=== PATIENT | male | born 1950 | race Hispanic/Latino ===

== ENCOUNTER 2018-03-30 18:51 | Emergency (ER) | payer OTHER ==
--- NOTE | 2018-03-30 22:05 | EDPHYS ---
Physician Documentation [facility] Name: Esvin Díaz Age: 67 yrs Sex: Male : 1950 Arrival Date: 03/30/2018 Time: 18:54 Bed 17 Private MD: Taurus Rojo V ED Physician William Mack HPI: 03/30 22:00 This 67 yrs old Male presents to ER via Ambulatory with complaints of Fall pm1 Injury. 22:00 Details of fall: The patient fell from an upright position, while walking. Onset: The pm1 symptoms/episode began/occurred 3 hour(s) ago. Associated injuries: The patient sustained left knee. Severity of symptoms: in the emergency department the symptoms are actually worse. The patient has not experienced similar symptoms in the past. Patient walking down steps and tripped. Patient landed on hi left knee causing swelling and pain. Patient uses a cane. patient able to walk on his left leg. Historical: - Allergies: 19:15 Isosorbide Mononitrate (unrinary retention); ak1 - Home Meds: 19:15 Advair Diskus 250-50 mcg/dose Inhl dsdv 1 puff 2 times per day [Active]; ak1 - PMHx: 19:15 BPH; COPD; Hypertension; Rheumatoid Arthritis; ak1 - PSHx: 19:15 left knee ACL sx; left ankle sx; prostate; ak1 - Immunization history:: Adult Immunizations unknown. - Social history:: Smoking status: . - Ebola Screening: : No symptoms or risks identified at this time. ROS: 22:00 Constitutional: Negative for fever, chills, and weight loss, Eyes: Negative for injury, pm1 pain, redness, and discharge, ENT: Negative for injury, pain, and discharge, Neck: Negative for injury, pain, and swelling, Cardiovascular: Negative for chest pain, palpitations, and edema, Respiratory: Negative for shortness of breath, cough, wheezing, and pleuritic chest pain, Abdomen/GI: Negative for abdominal pain, nausea, vomiting, diarrhea, and constipation, Back: Negative for injury and pain, : Negative for injury, bleeding, discharge, and swelling. 22:00 Skin: Negative for injury, rash, and discoloration, Neuro: Negative for headache, weakness, numbness, tingling, and seizure. 22:00 MS/extremity: Positive for pain, swelling, of the left knee. Exam: 22:00 Constitutional: This is a well developed, well nourished patient who is awake, alert, pm1 and in no acute distress. Head/Face: Normocephalic, atraumatic. Chest/axilla: Normal chest wall appearance and motion. Nontender with no deformity. No lesions are appreciated. Cardiovascular: Regular rate and rhythm with a normal S1 and S2. No gallops, murmurs, or rubs. Normal PMI, no JVD. No pulse deficits. Respiratory: Lungs have equal breath sounds bilaterally, clear to auscultation and percussion. No rales, rhonchi or wheezes noted. No increased work of breathing, no retractions or nasal flaring. Abdomen/GI: Soft, non-tender, with normal bowel sounds. No distension or tympany. No guarding or rebound. No evidence of tenderness throughout. Back: No spinal tenderness. No costovertebral tenderness. Full range of motion. Skin: Warm, dry with normal turgor. Normal color with no rashes, no lesions, and no evidence of cellulitis. 22:00 Musculoskeletal/extremity: Extremities: grossly normal except: noted in the left knee: swelling, tenderness, ROM: intact in all extremities, Circulation is intact in all extremities. 22:00 Neuro: Orientation: is normal, Motor: moves all fours, Sensation: is normal, no obvious gross deficits. Vital Signs: 19:09 BP 146 / 84; Pulse 101; Resp 18; Temp 98.4; Pulse Ox 96% on R/A; Weight 103.42 kg (R); ak1 Height 5 ft. 8 in. (172.72 cm) (R); Pain 8/10; 19:29 BP 125 / 71; Pulse 90; Resp 16; Pulse Ox 94% on R/A; Pain 0/10; ao 20:31 BP 150 / 70; Pulse 84; Resp 20; Pulse Ox 95% on R/A; ao 21:57 BP 138 / 80; Pulse 62; Resp 16; Pulse Ox 98% on R/A; Pain 0/10; ao 22:34 BP 146 / 75; Pulse 72; Resp 16; Pulse Ox 98% on R/A; ao 19:09 Body Mass Index 34.67 (103.42 kg, 172.72 cm) ak1 MDM: 19:14 Patient medically screened. [facility] 22:03 Data reviewed: vital signs. Data interpreted: Pulse oximetry: on room air is 98 %. pm1 Interpretation: normal. Counseling: I had a detailed discussion with the patient and/or guardian regarding: the historical points, exam findings, and any diagnostic results supporting the discharge/admit diagnosis, radiology results, the need for outpatient follow up, to return to the emergency department if symptoms worsen or persist or if there are any questions or concerns that arise at home. 03/30 19:29 Order name: Knee Left 3 View XRAY pm1 03/30 22:15 Order name: Reuben wrap-joint; Complete Time: 22:33 pm1 Administered Medications: No medications were administered Disposition: 03/31 09:36 Co-signature as Attending Physician, William Mack MD I agree with the assessment and [facility] plan of care. Disposition: 03/30/18 22:04 Discharged to Home. Impression: Pain in left knee. - Condition is Stable. - Discharge Instructions: Knee Immobilizer, Knee Pain. - Prescriptions for Tylenol- Codeine #3 300-30 mg Oral Tablet - take 1 tablet by ORAL route every 6 hours As needed; 15 tablet. - Medication Reconciliation Form, Thank You Letter form. - Follow up: Emergency Department; When: As needed; Reason: Worsening of condition. Follow up: Carlos Myles MD; When: 2 - 3 days; Reason: Recheck today's complaints, Continuance of care, Re-evaluation by your physician. - Problem is new. - Symptoms have improved. Signatures: Dispatcher [employer] EDVT William Mack MD MD cha Krenek, Amber RN RN ak1 Soham Hood RN RN Oziel Orosco, MUSICIAN INSTRUMENTAL MUSICIAN INSTRUMENTAL pm1 Corrections: (The following items were deleted from the chart) 03/30 22:16 22:02 Knee Immobilizer ordered. pm1 pm1 22:35 22:04 03/30/2018 22:04 Discharged to Home. Impression: Pain in left knee. Condition is ao Stable. Forms are Medication Reconciliation Form, Thank You Letter, Antibiotic Education, Prescription Opioid Use. Follow up: Emergency Department; When: As needed; Reason: Worsening of condition. Follow up: Carlos Shar; When: 2 - 3 days; Reason: Recheck today's complaints, Continuance of care, Re-evaluation by your physician. Problem is new. Symptoms have improved. pm1
--- NOTE | 2018-03-30 22:05 | ER ---
Nurse's Notes [facility] Name: Esvin Díaz Age: 67 yrs Sex: Male : 1950 Arrival Date: 03/30/2018 Time: 18:54 Bed 17 Private MD: Taurus Rojo V Diagnosis: Pain in left knee Presentation: 03/30 19:10 Presenting complaint: Patient states: left knee pain after falling on wooden porch. pt ak1 using cane to ambulate. pt has used ice over the past 3 hours cine the fall at 1600. swelling noted to left knee. Transition of care: patient was not received from another setting of care. Onset of symptoms was March 30, 2018. Risk Assessment: Do you want to hurt yourself or someone else? Patient reports no desire to harm self or others. Initial Sepsis Screen: Does the patient meet any 2 criteria? No. Patient's initial sepsis screen is negative. Does the patient have a suspected source of infection? No. Patient's initial sepsis screen is negative. Care prior to arrival: None. 19:10 Method Of Arrival: Ambulatory ak1 19:10 Acuity: NATACHA 4 ak1 Triage Assessment: 19:15 General: Appears uncomfortable, Behavior is calm, cooperative. Pain: Complains of pain ak1 in left leg. EENT: No signs and/or symptoms were reported regarding the EENT system. Neuro: No deficits noted. Cardiovascular: No deficits noted. Respiratory: No deficits noted. GI: No signs and/or symptoms were reported involving the gastrointestinal system. : No signs and/or symptoms were reported regarding the genitourinary system. Derm: No signs and/or symptoms reported regarding the dermatologic system. Musculoskeletal: Swelling present in left knee Reports pain in left knee. Historical: - Allergies: 19:15 Isosorbide Mononitrate (unrinary retention); ak1 - Home Meds: 19:15 Advair Diskus 250-50 mcg/dose Inhl dsdv 1 puff 2 times per day [Active]; ak1 - PMHx: 19:15 BPH; COPD; Hypertension; Rheumatoid Arthritis; ak1 - PSHx: 19:15 left knee ACL sx; left ankle sx; prostate; ak1 - Immunization history:: Adult Immunizations unknown. - Social history:: Smoking status: . - Ebola Screening: : No symptoms or risks identified at this time. Screenin:17 Abuse screen: Denies threats or abuse. Denies injuries from another. Nutritional ak1 screening: No deficits noted. Tuberculosis screening: No symptoms or risk factors identified. Fall Risk None identified. Assessment: 19:26 General: Appears in no apparent distress. comfortable, Behavior is calm, cooperative, ao appropriate for age. Pain: Complains of pain in left knee and left leg Pain does not radiate. Pain currently is 8 out of 10 on a pain scale. Neuro: Level of Consciousness is awake, alert, obeys commands, Oriented to person, place, time, situation, Appropriate for age Moves all extremities. Speech is normal, Facial symmetry appears normal, Pupils are PERRLA. Cardiovascular: Capillary refill < 3 seconds Patient's skin is warm and dry. Respiratory: Airway is patent Respiratory effort is even, unlabored, Respiratory pattern is regular, symmetrical, Breath sounds are clear bilaterally. GI: Abdomen is non-distended. : No signs and/or symptoms were reported regarding the genitourinary system. EENT: No signs and/or symptoms were reported regarding the EENT system. Derm: No signs and/or symptoms reported regarding the dermatologic system. Musculoskeletal: Reports weakness in left leg pain in left leg Pain is 8 out of 10 on a pain scale. Injury Description: Fall into his left knee. 20:31 Reassessment: Patient appears in no apparent distress at this time. No changes from ao previously documented assessment. Patient and/or family updated on plan of care and expected duration. Pain level reassessed. Patient is alert, oriented x 3, equal unlabored respirations, skin warm/dry/pink. 21:57 Reassessment: Patient appears in no apparent distress at this time. Patient and/or ao family updated on plan of care and expected duration. Pain level reassessed. Patient is alert, oriented x 3, equal unlabored respirations, skin warm/dry/pink. 22:34 Reassessment: Dc instructions given to patient. patient understand the POC and to ao follow up with PCP and orthopedist. Vital Signs: 19:09 BP 146 / 84; Pulse 101; Resp 18; Temp 98.4; Pulse Ox 96% on R/A; Weight 103.42 kg (R); ak1 Height 5 ft. 8 in. (172.72 cm) (R); Pain 8/10; 19:29 BP 125 / 71; Pulse 90; Resp 16; Pulse Ox 94% on R/A; Pain 0/10; ao 20:31 BP 150 / 70; Pulse 84; Resp 20; Pulse Ox 95% on R/A; ao 21:57 BP 138 / 80; Pulse 62; Resp 16; Pulse Ox 98% on R/A; Pain 0/10; ao 22:34 BP 146 / 75; Pulse 72; Resp 16; Pulse Ox 98% on R/A; ao 19:09 Body Mass Index 34.67 (103.42 kg, 172.72 cm) ak1 ED Course: 18:54 Patient arrived in ED. es 18:54 Taurus Rojo MD is Private Physician. es 19:10 [facility] pm1 19:10 William Mack MD is Attending Physician. pm1 19:13 Triage completed. ak1 19:14 Soham Hood, RN is Primary Nurse. ao 19:17 Patient has correct armband on for positive identification. Bed in low position. Call ak1 light in reach. Side rails up X 1. Pulse ox on. NIBP on. 19:17 Arm band placed on Patient placed in an exam room, on a stretcher, Patient notified of ak1 wait time. 20:14 X-ray completed. Portable x-ray completed in exam room. Patient tolerated procedure ag1 well. 20:24 Knee Left 3 View XRAY In Process Unspecified. EDMS 22:03 Carlos Myles MD is Referral Physician. pm1 22:33 No provider procedures requiring assistance completed. Patient did not have IV access ao during this emergency room visit. Administered Medications: No medications were administered Outcome: 22:04 Discharge ordered by . pm1 22:33 Discharged to home via wheelchair. ao 22:33 Condition: stable 22:33 Discharge instructions given to patient, Instructed on discharge instructions, follow up and referral plans. Demonstrated understanding of instructions, follow-up care, medications, Prescriptions given X 1. 22:35 Patient left the ED. ao Signatures: Dispatcher [employer] EDMS Radha Morris Mackenzie Herrera RN RN ak1 Alissa Frank ag1 Soham Hood RN RN ao Marinas, Oziel, PLYWOOD PATCHER PLYWOOD PATCHER pm1
--- NOTE | 2018-03-30 22:36 | RAD REPORT ---
EXAM DESCRIPTION: RAD - Knee Left 3 View - 03/30/2018 8:32 pm CLINICAL HISTORY: Left knee pain status post injury FINDINGS: The bones are osteoporotic. Postsurgical changes are visualized. Calcification is present along the medial joint line. No fracture or dislocation is visualized. However, there does appear to be a moderate joint effusion. In the setting of trauma this could indicate a hemarthrosis. If the patient has clinical symptoms to suggest an occult fracture, ligamentous or meniscal injury th en MRI would be recommended
[2018-03-30 22:47] VITALS: TEMP 98.4
[2018-03-30 22:50] VITALS: O2SAT 98
[2018-03-30 22:52] VITALS: BP 146/75
== END 2018-03-30 22:35 | disposition home or self-care (01) ==
LOC: ER 18:51
DX: M25.562 Pain in left knee (principal); I10 Essential (primary) hypertension; J44.9 Chronic obstructive pulmonary disease, unspecified
CPT/HCPCS: 99283

== ENCOUNTER 2018-10-09 06:21 | Emergency (ER) | payer OTHER ==
--- NOTE | 2018-10-09 07:16 | EDPHYS ---
Physician Documentation [facility] Name: Esvin Díaz Age: 68 yrs Sex: Male : 1950 Arrival Date: 10/09/2018 Time: 06:22 Bed 8 Private MD: Taurus Rojo V ED Physician Esvin Casillas HPI: 10/09 07:04 This 68 yrs old Male presents to ER via Ambulatory with complaints of Blood in snw urine. 07:04 The patient presents with hematuria. Onset: The symptoms/episode began/occurred snw suddenly, last night. Modifying factors: The symptoms are alleviated by nothing. Associated signs and symptoms: The patient has no apparent associated signs or symptoms. Severity of symptoms: At their worst the symptoms were moderate. It is unknown whether or not the patient has had similar symptoms in the past. sees Dr. Moreno q 6mo, s/p "roto router" one year ago. Also sees Dr. Li for abnormal WBC (unknown cause). Historical: - Allergies: 06:34 Isosorbide Mononitrate (unrinary retention); ak1 - Home Meds: 06:34 Advair Diskus 250-50 mcg/dose Inhl dsdv 1 puff 2 times per day [Active]; losartan 50 mg ak1 oral tab 1 tab once daily [Active]; - PMHx: 06:34 Rheumatoid Arthritis; Hypertension; COPD; BPH; ak1 - PSHx: 06:34 left knee ACL sx; left ankle sx; prostate; ak1 - Immunization history:: Adult Immunizations unknown. - Social history:: Smoking status: Patient/guardian denies using tobacco. - Ebola Screening: : No symptoms or risks identified at this time. ROS: 07:03 Constitutional: Negative for fever, chills, and weight loss, Eyes: Negative for injury, snw pain, redness, and discharge, ENT: Negative for injury, pain, and discharge, Neck: Negative for injury, pain, and swelling, Cardiovascular: Negative for chest pain, palpitations, and edema, Respiratory: Negative for shortness of breath, cough, wheezing, and pleuritic chest pain, Abdomen/GI: Negative for abdominal pain, nausea, vomiting, diarrhea, and constipation, Back: Negative for injury and pain, MS/Extremity: Negative for injury and deformity, Skin: Negative for injury, rash, and discoloration, Neuro: Negative for headache, weakness, numbness, tingling, and seizure. 07:03 : Positive for hematuria. Exam: 07:03 Constitutional: This is a well developed, well nourished patient who is awake, alert, snw and in no acute distress. Head/Face: Normocephalic, atraumatic. Eyes: Pupils equal round and reactive to light, extra-ocular motions intact. Lids and lashes normal. Conjunctiva and sclera are non-icteric and not injected. Cornea within normal limits. Periorbital areas with no swelling, redness, or edema. ENT: Nares patent. No nasal discharge, no septal abnormalities noted. Tympanic membranes are normal and external auditory canals are clear. Oropharynx with no redness, swelling, or masses, exudates, or evidence of obstruction, uvula midline. Mucous membranes moist. Neck: Trachea midline, no thyromegaly or masses palpated, and no cervical lymphadenopathy. Supple, full range of motion without nuchal rigidity, or vertebral point tenderness. No Meningismus. Chest/axilla: Normal chest wall appearance and motion. Nontender with no deformity. No lesions are appreciated. Cardiovascular: Regular rate and rhythm with a normal S1 and S2. No gallops, murmurs, or rubs. Normal PMI, no JVD. No pulse deficits. Respiratory: Lungs have equal breath sounds bilaterally, clear to auscultation and percussion. No rales, rhonchi or wheezes noted. No increased work of breathing, no retractions or nasal flaring. Abdomen/GI: Soft, non-tender, with normal bowel sounds. No distension or tympany. No guarding or rebound. No evidence of tenderness throughout. Back: No spinal tenderness. No costovertebral tenderness. Full range of motion. Skin: Warm, dry with normal turgor. Normal color with no rashes, no lesions, and no evidence of cellulitis. MS/ Extremity: Pulses equal, no cyanosis. Neurovascular intact. Full, normal range of motion. Neuro: Awake and alert, GCS 15, oriented to person, place, time, and situation. Cranial nerves II-XII grossly intact. Motor strength 5/5 in all extremities. Sensory grossly intact. Cerebellar exam normal. Normal gait. Vital Signs: 06:29 BP 137 / 73; Pulse 73; Resp 20; Temp 97.0; Pulse Ox 98% on R/A; Weight 101.15 kg (R); ak1 Height 5 ft. 9 in. (175.26 cm) (R); Pain 0/10; 07:30 BP 113 / 75; Pulse 68; Resp 16 S; Pulse Ox 96% on R/A; jl7 06:29 Body Mass Index 32.93 (101.15 kg, 175.26 cm) ak1 MDM: 06:34 Patient medically screened. snw 07:17 Data reviewed: vital signs, nurses notes. Data interpreted: Pulse oximetry: on room air snw is 98 %. Interpretation: normal. Counseling: I had a detailed discussion with the patient and/or guardian regarding: the historical points, exam findings, and any diagnostic results supporting the discharge/admit diagnosis, the presence of at least one elevated blood pressure reading (>120/80) during this emergency department visit, lab results, the need for outpatient follow up, to return to the emergency department if symptoms worsen or persist or if there are any questions or concerns that arise at home. Special discussion: I have referred the patient to see his PCP for further evaluation of high blood pressure. Based on the history and exam findings, there is no indication for further emergent testing or inpatient evaluation. I discussed with the patient/guardian the need to see the primary care provider for further evaluation of the symptoms. I discussed with the patient/guardian the need to see the urologist for further evaluation of the symptoms. 10/09 06:24 Order name: Urine Culture snw 10/09 06:24 Order name: Urine Microscopic Only; Complete Time: 07:40 snw 10/09 06:24 Order name: Urine Dipstick-Ancillary (obtain specimen); Complete Time: 07:04 snw 10/09 07:13 Order name: Urine Dipstick--Ancillary (enter results) bd Administered Medications: 07:30 Drug: Rocephin (cefTRIAXone) 1 grams Route: IM; Site: right gluteus; jl7 07:34 Drug: Macrobid 100 mg Route: PO; jl7 Disposition: 10/09/18 07:15 Discharged to Home. Impression: Urinary tract infection, site not specified. - Condition is Stable. - Discharge Instructions: Urinary Tract Infection, Adult, Hypertension, [id number]-Ipol, Rehydration, Adult. - Prescriptions for Macrobid 100 mg Oral Capsule - take 1 capsule by ORAL route every 12 hours for 10 days; 20 capsule. cefpodoxime 200 mg Oral Tablet - take 1 tablet by ORAL route every 12 hours with food; 20 tablet. - Medication Reconciliation Form, Thank You Letter, Antibiotic Education, Prescription Opioid Use form. - Follow up: Taurus Rojo MD; When: 1 - 2 days; Reason: Recheck today's complaints, Continuance of care, Re-evaluation by your physician. Follow up: Emergency Department; When: As needed; Reason: Worsening of condition. Addendum: 10/12/2018 10:38 Co-signature as Attending Physician, Esvin Casillas MD. g s Signatures: Dispatcher [employer] EDMS Tania Escalera, SAW EDGE FUSER CIRCULAR-C SAW EDGE FUSER CIRCULAR-Csnw Polina Lizarraga, RN RN iw Mackenzie Herrera RN RN ak1 Aditya Ribeiro RN RN jl7 Esvin Casillas MD MD Corrections: (The following items were deleted from the chart) 10/09 07:49 07:15 10/09/2018 07:15 Discharged to Home. Impression: Urinary tract infection, site iw not specified. Condition is Stable. Forms are Medication Reconciliation Form, Thank You Letter, Antibiotic Education, Prescription Opioid Use. Follow up: Taurus Rojo; When: 1 - 2 days; Reason: Recheck today's complaints, Continuance of care, Re-evaluation by your physician. Follow up: Emergency Department; When: As needed; Reason: Worsening of condition. snw
--- NOTE | 2018-10-09 07:16 | ER ---
Nurse's Notes [facility] Name: Esvin Díaz Age: 68 yrs Sex: Male : 1950 Arrival Date: 10/09/2018 Time: 06:22 Bed 8 Private MD: Taurus Rojo V Diagnosis: Urinary tract infection, site not specified Presentation: 10/09 06:30 Presenting complaint: Patient states: blood in urine started last night. Transition of ak1 care: patient was not received from another setting of care. Onset of symptoms was October 08, 2018. Risk Assessment: Do you want to hurt yourself or someone else? Patient reports no desire to harm self or others. Initial Sepsis Screen: Does the patient meet any 2 criteria? No. Patient's initial sepsis screen is negative. Does the patient have a suspected source of infection? No. Patient's initial sepsis screen is negative. Care prior to arrival: None. 06:30 Method Of Arrival: Ambulatory ak1 06:30 Acuity: NATACHA 3 ak1 Triage Assessment: 06:34 General: Appears in no apparent distress. ak1 Historical: - Allergies: 06:34 Isosorbide Mononitrate (unrinary retention); ak1 - Home Meds: 06:34 Advair Diskus 250-50 mcg/dose Inhl dsdv 1 puff 2 times per day [Active]; losartan 50 mg ak1 oral tab 1 tab once daily [Active]; - PMHx: 06:34 Rheumatoid Arthritis; Hypertension; COPD; BPH; ak1 - PSHx: 06:34 left knee ACL sx; left ankle sx; prostate; ak1 - Immunization history:: Adult Immunizations unknown. - Social history:: Smoking status: Patient/guardian denies using tobacco. - Ebola Screening: : No symptoms or risks identified at this time. Screenin:30 Abuse screen: Denies threats or abuse. Denies injuries from another. Nutritional aa1 screening: No deficits noted. Tuberculosis screening: No symptoms or risk factors identified. Fall Risk None identified. Assessment: 06:30 General: Appears in no apparent distress. comfortable, Behavior is calm, cooperative, aa1 appropriate for age. Pain: Denies pain. Neuro: Level of Consciousness is awake, alert, obeys commands, Oriented to person, place, time, situation, Moves all extremities. Full function Gait is steady, Speech is normal. Respiratory: Airway is patent Respiratory effort is even, unlabored, Respiratory pattern is regular, symmetrical. GI: No signs and/or symptoms were reported involving the gastrointestinal system. : Reports blood in urine Denies burning with urination, pain urinary frequency, urgency. EENT: No signs and/or symptoms were reported regarding the EENT system. Derm: Skin is intact, is healthy with good turgor, Skin is pink, warm \T\ dry. Musculoskeletal: Circulation, motion, and sensation intact. Capillary refill < 3 seconds. 07:30 Reassessment: Patient appears in no apparent distress at this time. Patient and/or jl7 family updated on plan of care and expected duration. Pain level reassessed. Patient is alert, oriented x 3, equal unlabored respirations, skin warm/dry/pink. Pt will be discharged after shot time. Vital Signs: 06:29 BP 137 / 73; Pulse 73; Resp 20; Temp 97.0; Pulse Ox 98% on R/A; Weight 101.15 kg (R); ak1 Height 5 ft. 9 in. (175.26 cm) (R); Pain 0/10; 07:30 BP 113 / 75; Pulse 68; Resp 16 S; Pulse Ox 96% on R/A; jl7 06:29 Body Mass Index 32.93 (101.15 kg, 175.26 cm) ak1 ED Course: 06:22 Patient arrived in ED. es 06:23 Taurus Rojo MD is Private Physician. es 06:30 Patient has correct armband on for positive identification. Bed in low position. Call aa1 light in reach. Pulse ox on. NIBP on. Door closed. Warm blanket given. 06:31 Triage completed. ak1 06:34 Tania Escalera FNP-C is PHCP. snw 06:34 Esvin Casillas MD is Attending Physician. snw 06:34 Arm band placed on Patient placed in an exam room, on a stretcher, on pulse oximetry, ak1 Patient notified of wait time. 07:11 Urine collected: clean catch specimen, blood tinged. mh5 07:12 Urine Culture Sent. mh5 07:12 Urine Microscopic Only Sent. mh5 07:15 Taurus Rojo MD is Referral Physician. snw Administered Medications: 07:30 Drug: Rocephin (cefTRIAXone) 1 grams Route: IM; Site: right gluteus; jl7 07:34 Drug: Macrobid 100 mg Route: PO; jl7 Outcome: 07:15 Discharge ordered by MD. santiago 07:49 Patient left the ED. iw Signatures: Federica Dawn RN RN aa1 Tania Escalera, POLICE COMMANDING OFFICER-C POLICE COMMANDING OFFICER-Csnw Radha Morris Irene, RN RN Mackenzie Herrera RN RN ak1 Radha Altamirano [facility] Aditya Ribeiro RN RN jl7
[2018-10-09 07:31] LABS: Urine Bacteria 20-50 /HPF (NONE SEEN); Urine Culture Reflex Order NOT NEEDED; Urine RBC TNTC /HPF (NONE SEEN)
[2018-10-09] MEDS ORDERED: NITROFURAN MACRO 100 MG CAP PO ONE (07:32)
[2018-10-09] MEDS ORDERED: CEFTRIAXONE 1000 MG/VIAL ONE (07:32)
[2018-10-09 07:54] VITALS: TEMP 97
[2018-10-09 07:56] VITALS: BP 113/75; O2SAT 96
[2018-10-09 09:32] LABS: Urine Blood 3+ (NEG); Urine Glucose TRACE (NEG); Urine Protein 3+ (NEG); Urine pH 8.5 (5.0-7.0)
== END 2018-10-09 07:49 | disposition home or self-care (01) ==
LOC: ER 06:21
DX: N39.0 Urinary tract infection, site not specified (principal); I10 Essential (primary) hypertension; J44.9 Chronic obstructive pulmonary disease, unspecified; M06.9 Rheumatoid arthritis, unspecified; N40.0 Benign prostatic hyperplasia without lower urinary tract symptoms; Z79.51 Long term (current) use of inhaled steroids; Z79.899 Other long term (current) drug therapy
CPT/HCPCS: 81003; 81015; 87086; 87088; 96372; 99283

== ENCOUNTER 2019-07-10 14:25 | Emergency (ER) | payer OTHER ==
--- OUTSIDE RECORDS SUMMARY | 2019-07-10 14:28 | XMS REPORT | Summary of Care ---
:1950 Author Organization [facility] Address [id number] [place] [id number] Encounter HQ Chidi_eugene(FIN) [id number] Date(s): 11/26/18 - 11/26/[address] [phone] Encounter Diagnosis Monoclonal gammopathy (Final) - 12/02/18 Anemia, unspecified (Final) - Discharge Disposition: Home or Self Care Attending Physician: Colleen Li MD Referring Physician: Colleen Li MD Vital Signs Most recent to oldest [Reference Range]: 1 Height 175.26 cm (11/26/18 10:11 AM) Weight 103.182 kg (11/26/18 10:11 AM) Body Mass Index 33.59 m2 (11/26/18 10:11 AM) Problem List No data available for this section Allergies, Adverse Reactions, Alerts No Known Medication Allergies Medications Advair Diskus 250 mcg-50 mcg inhalation powder 1 puff, INHALATION, Daily, 0 Refill(s) Start Date: 11/26/18 Status: OrderedCitracal + D 250 mg-500 intl units oral tablet, chewable 2 tab, CHEW, Daily, 0 Refill(s) Start Date: 11/26/18 Status: Orderedlosartan 50 mg oral tablet 50 mg=1 tab, PO, Daily, # 90 tab, 1 Refill(s) Start Date: 11/26/18 Status: Ordered Results Most recent to oldest [Reference Range]: 1 Neutrophils # [1.5-8.1 K/CMM] 6.0 K/CMM (11/26/18 10:12 AM) Lymphocytes # [1.0-5.5 K/CMM] 2.1 K/CMM (11/26/18 10:12 AM) Monocytes # [0.0-0.8 K/CMM] 1.1 K/CMM *HI* (11/26/18 10:12 AM) Eosinophils # [0.0-0.5 K/CMM] 0.2 K/CMM (11/26/18 10:12 AM) Basophils # [0.0-0.2 K/CMM] 0.0 K/CMM (11/26/18 10:12 AM) Test Name FISH-MM ENRICHED *Unknown* (11/27/18 10:51 AM) Plt Morph Normal (11/26/18 10:12 AM) Basophils [0.0-1.0 %] 0.0 % (11/26/18 10:12 AM) Eosinophils [0.0-4.0 %] 2.0 % (11/26/18 10:12 AM) Hct [42.0-54.0 %] 39.9 % *LOW* (11/26/18 10:12 AM) Hgb [14.0-18.0 g/dL] 13.9 g/dL *LOW* (11/26/18 10:12 AM) Lymphocytes [20.0-40.0 %] 22.0 % (11/26/18 10:12 AM) MCH [27.0-31.0 pg] 30.2 pg (11/26/18 10:12 AM) MCHC [32.0-36.0 g/dL] 34.8 g/dL (11/26/18 10:12 AM) MCV [80.0-94.0 fL] 86.9 fL (11/26/18 10:12 AM) [facility] Reference lab results scanned in [employer]. Results displayed in Results- Lab-REFERENCE LAB-Outside Lab Documents (Imaged) under date/time results were scanned. Report sent for scanning on 12/08/2018 10:57_. GENOPTIX REPORT *NA* (11/27/18 10:51 AM) Monocytes [2.0-12.0 %] 12.0 % (11/26/18 10:12 AM) MPV [7.4-10.4 fL] 7.3 fL *LOW* (11/26/18 10:12 AM) Platelet [133-450 K/CMM] 342 K/CMM (11/26/18 10:12 AM) Segs [45.0-75.0 %] 64.0 % (11/26/18 10:12 AM) RBC [4.70-6.10 M/CMM] 4.59 M/CMM *LOW* (11/26/18 10:12 AM) RBC Morph Normal (11/26/18 10:12 AM) RDW [11.5-14.5 %] 13.9 % (11/26/18 10:12 AM) Retic Auto [0.5-1.5 %] 1.1 % (11/26/18 10:12 AM) Tot Cell Ct 100 *NA* (11/26/18 10:12 AM) WBC [3.7-10.4 K/CMM] 9.4 K/CMM (11/26/18 10:12 AM) Immunizations No data available for this section Procedures Procedure Date Related Diagnosis Body Site Status Ankle reconstruction Completed Knee replacement Completed ORIF - Open reduction and internal Completed fixation of fracture1 Prostate manipulation Completed 1ankle ORIF Social History Social History Type Response Smoking Status Never smoker; Ready to change: No; Concerns about tobacco use in household: No; Exposure to Tobacco Smoke None; Cigarette Smoking Last 365 Days No; Reg Smoking Cessation Counseling No entered on: 11/26/18 Assessment and Plan No data available for this section
--- OUTSIDE RECORDS SUMMARY | 2019-07-10 14:28 | XMS REPORT | CCD ---
:1950 [address] [facility] Care Team Providers Name Role Phone Caesar Shelton Consulting Provider Unavailable Results Radiology Reports Exam Date Time Procedure Performing Provider Status 09/21/2015 15:53:55 MRI Hand w/o Contrast Left Safia Ware; Auth ( Verified) [id number] Notes:(MRI Hand w/o Contrast Left [id number]) Reason For Exam: PAIN IN LEFT HANDFINAL REPORTEXAM DESCRIPTION: Noncontrast MRI of the left hand, 09/21/2015 CLINICAL HISTORY: 65 y/o M M79.642 - Left hand pain COMPARISON: None. TECHNIQUE: Multiplanar imaging of the left hand was performed on the [facility] 1.2 Leslie magnet using a combination of T1, proton density and STIR techniques. A skin marker was placed on the volar aspect of the 3rdfinger near the proximal interphalangeal joint where the patient indicated pain. FINDINGS: Small subchondral cysts are seen in the head of the 3rd metacarpal as well as in the capitate and pisiform. There is no bone marrow edema to suggest an acute osseous abnormality. There are no joint effusions. The flexor and extensor tendons appear intact. No soft tissue mass or fluid collection is seen. IMPRESSION: Osteoarthritic changes are noted in the head of the 3rd metacarpal with small subchondral cysts. There are also small subchondral cysts in the capitate and pisiform. No abnormality is seen near the proximal interphalangeal joint of the 3rd finger where the patient indicated pain. No acute osseous abnormality is seen. Electronically signed by: Pascual Rodriguez 09/22/2015 13:22 Final Dictated by: Pascual Islas MD Dictated DT/TM: 09/22/2015 1:22 pm Signed by: Pascual Islas MD Signed (Electronic Signature): 09/22/2015 1:22 pm Transcribed by: JHONNY Procedures Procedures Date Related Diagnosis Magnetic resonance (eg, proton) imaging, upper 09/21/2015 00:00:00 extremity, other than joint; without contrast material(s)
--- OUTSIDE RECORDS SUMMARY | 2019-07-10 14:28 | XMS REPORT | Continuity of Care Document ---
:1950 Author Organization [facility] Care Team Providers Name Role Phone [facility] Unavailable Unavailable Problems Problem Status Onset Classification Date Comments Source Date Reported Monoclonal 12/03/19 06/16/2019 [facility] gammopathy 19 MONOCLOMAL Active 11/25/19 [facility] GAMMOPATHY 19 Chris Pneumonia Active 09/16/20 Finding 11/25/[address] [facility] 17 - [place] Lower extremity Active 12/09/19 Finding 11/25/[address] [facility] edema 17 - [place] Troponin I Active 12/09/19 Finding 11/25/[address] 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 myocardial 17 - [place] infarction Urinary Active 12/09/19 Finding 11/25/[address] [facility] retention 17 - [place] Dyspnea Active 12/13/19 Finding 11/25/[address] [facility] 15 - [place] Cardiac enzymes Active 12/13/19 Finding 11/25/[address] [facility] elevated 15 - [place] Hypoxia Active 12/13/19 Finding 11/25/[address] [facility] 15 - [place] Anemia, 06/16/2019 [facility] unspecified Edema Active Finding 11/25/[address] [facility] [place] Orchitis Active Finding 11/25/[address] [facility] [place] Bronchitis Active Finding 11/25/[address] [facility] [place] Dehydration Active Finding 11/25/[address] [facility] [place] MONOCLONAL Active [facility] GAMMOPATHY [place] Medications Medication Details Route Status Patient Ordering Order Source Instructions Provider Date Advair Diskus 1 puff, Active [place] 250 mcg-50 mcg INHALATION 019 inhalation , Daily, 0 powder Refill(s) Citracal + D 250 2 tab, Active [place] mg-500 intl CHEW, 019 units oral Daily, 0 tablet, chewable Refill(s) losartan 50 mg 50 mg=1 Active [facility] oral tablet tab, PO, 019 Daily, # 90 tab, 1 Refill(s) Levofloxacin DAILY Active Alia [facility]17 [facility] [place] Valsartan DAILY Active [facility] [place] Tamsulosin AT BEDTIME Active Josh [facility]17 [facility] [place] Finasteride DAILY [facility]17 [facility] [place] Doxycycline TWICE Active Josh [facility] Monohydrate DAILY 014 [facility] [place] Sulfamethoxazole TWICE Active Josh [facility] /Trimethoprim DAILY 014 [facility] [place] Ciprofloxacin Q12H Active [facility] Hcl 014 [facility] [place] Hydrocodone Q6H PRN Active [facility] 5/Apap 325 For Pain 014 [facility] [place] Fluticasone/[place] TWICE Active [facility] eterol DAILY 014 [facility] [place] Allergies, Adverse Reactions, Alerts Substance Category Reaction Severity Reaction Status Date Comments Source type Reported isosorbide URINARY Propensity Active [facility] RETENTION to adverse 8 [facility] - reactions [place] Isosorbide Unknown Allergy to Active [facility] Mononitrate Substance 8 [facility] [place] No Known Assertion Drug Medication allergy [place] Allergies Immunizations Immunization Date Given Site Status Last Comments Source Updated Influenza Adult 07/09/[address] [facility] Vaccine - [place] Results Order Name Results Value Reference Date Interpretation Comments Source Range REFERENCE Test Name FISH-MM 11/27 [facility] LAB [facility] LAB RESULTS lab scanned in [facility]. Results displayed in Results-Lab -REFERENCE LAB-Outside Lab Documents (Imaged) under date/time results were scanned. Report sent for scanning on 12/08/2018 10:57_. [facility] REPORT HEMATOLOGY Hgb 13.9 14.0 - 11/26 [facility] 18.0 HEMATOLOGY RBC 4.59 4.70 - 11/26 [facility] 6.10 HEMATOLOGY WBC 9.4 3.7 - 10.4 [facility] MPV 7.3 7.4 - 10.4 11/26 [facility] Platelet 342 133 - 450 11/26 [facility] MCH 30.2 27.0 - 11/26 [facility] 31.0 HEMATOLOGY MCV 86.9 80.0 - 11/26 [facility] 94.0 HEMATOLOGY RDW 13.9 11.5 - 11/26 [facility] 14.5 HEMATOLOGY MCHC 34.8 32.0 - 11/26 [facility] 36.0 HEMATOLOGY Hct 39.9 42.0 - 11/26 [facility] 54.0 HEMATOLOGY Retic Auto 1.1 0.5 - 1.5 11/26 [facility] Neutrophils # 6.0 1.5 - 8.1 11/26 [facility] Monocytes # 1.1 0.0 - 0.8 11/26 [facility] Basophils 0.0 0.0 - 1.0 11/26 [facility] Eosinophils 2.0 0.0 - 4.0 11/26 [facility] Tot Cell Ct 100 11/26 [facility] Eosinophils # 0.2 0.0 - 0.5 11/26 [facility] HEMATOLOGY Lymphocytes # 2.1 1.0 - 5.5 11/26 [facility] Basophils # 0.0 0.0 - 0.2 11/26 [facility] Lymphocytes 22.0 20.0 - 11/26 [facility] 40.0 2019 HEMATOLOGY Segs 64.0 45.0 - 11/26 [facility] 75.0 HEMATOLOGY Monocytes 12.0 2.0 - 12.0 11/26 [facility] Plt Morph Normal 11/26 [facility] (11/26/18 10:12 AM) HEMATOLOGY RBC Morph Normal 11/26 [facility] (11/26/18 10:12 AM) Microbiolog Pseudomonas Pseudomonas 11/[address] [facility] [facility] [facility] Studies Aeruginosa Aeruginosa [facility] [place] Laboratory Urine WBC >50 11/[address] [facility] Studies /2018 [facility] [place] Laboratory Urine <5 11/[address] Studies Squamous [facility] Epithelial [place] Cells Laboratory Urine RBC Urine RBC 11/[address] [facility] Studies /2017 [facility] [place] Laboratory Urine Mucus Urine Mucus 11/[address] [facility] Studies /2017 [facility] [place] Laboratory Urine Culture Urine 11/20 [facility]. Studies Reflexed Culture /2017 [facility] Reflexed [place] Laboratory Urine <20 11/20 [facility]. Studies Bacteria /2017 [facility] [place] Laboratory Urine pH 6.5 11/[address] [facility] Studies /2017 [facility] [place] Laboratory Urine 1.0 11/20 [facility]. Studies Urobilinogen /2017 [facility] [place] Laboratory Urine Total Urine Total 11/20 [facility]. Studies Protein Protein /2017 [facility] [place] Laboratory Urine 1.020 11/20 [facility]. Studies Specific /2017 [facility] [place] Laboratory Urine Nitrite Urine 11/20 [facility]. Studies Nitrite /2017 [facility] [place] Laboratory Urine Urine 11/20 [facility]. Studies Leukocyte Leukocyte /2017 [facility] Esterase Esterase [place] Laboratory Urine Ketones Urine 11/20 [facility]. Studies Ketones /2017 [facility] [place] Laboratory Urine Glucose Urine 11/20 [facility]. Studies Glucose /2017 [facility] [place] Laboratory Urine Color Urine Color 11/20 [facility] Studies /2017 [facility] [place] Laboratory Urine Blood Urine Blood 11/20 [facility]. Studies /2017 [facility] [place] Laboratory Urine Urine 11/20 [facility] Studies Bilirubin Bilirubin /2017 [facility] [place] Laboratory Urine Urine 11/20 [facility]. Studies Appearance Appearance /2017 [facility] [place] Laboratory White Blood 7.7 4.3 - 10.9 11/20 [facility]. Studies Count /2017 [facility] [place] Laboratory Red Cell 13.9 12.1 - 11/20 [facility]. Studies Distribution 15.2 /2017 [facility] Width [place] Laboratory Red Blood 4.73 4.33 - 11/20 [facility]. Studies Count 5.43 /2017 [facility] [place] Laboratory Platelet 329 152 - 406 11/20 [facility] Studies Count /2017 [facility] [place] Laboratory Neutrophils % 69.0 41.7 - 11/[address] [facility] Studies 73.7 /2017 [facility] [place] Laboratory Monocytes % 8.3 3.3 - 12.3 11/[address] Studies /2018 [facility] [place] Laboratory Mean Platelet 7.7 7.6 - 11.3 11/[address] [facility] Studies Volume /2017 [facility] [place] Laboratory Mean 87.5 80 - 100 11/[address] [facility] Studies Corpuscular /2017 [facility] Volume [place] Laboratory Mean 33.4 32.0 - 11/[address] [facility] Studies Corpuscular 36.0 [facility] - Hemoglobin [place] Concent Laboratory Mean 29.3 27.0 - 11/[address] [facility] Studies Corpuscular 35.0 [facility] - Hemoglobin [place] Laboratory Lymphocytes % 19.5 15.3 - 11/[address] [facility] Studies 44.8 /2017 [facility] [place] Laboratory Hemoglobin 13.8 13.6 - 11/[address] [facility] Studies 17.9 [facility] [place] Laboratory Hematocrit 41.4 39.6 - 11/[address] [facility] Studies 49.0 [facility] [place] Laboratory Eosinophils % 2.4 0 - 4.4 11/[address] [facility] Studies /2017 [facility] [place] Laboratory Basophils % 0.8 0 - 1.3 11/[address] [facility] Studies /2017 [facility] [place] Laboratory Absolute 5.3 1.8 - 8.0 11/[address] [facility] Studies Neutrophil [facility] [place] Laboratory Absolute 0.6 0.1 - 1.3 11/[address] [facility] [address] Studies Monocytes [facility] - (CBC) [place] Laboratory Absolute 1.5 0.7 - 4.9 11/[address] [facility] [address] Studies Lymphocytes [facility] - (CBC) [place] Laboratory Absolute 0.2 0 - 0.5 11/[address] [facility] [address] Studies Eosinophils [facility] - (CBC) [place] Laboratory Absolute 0.1 0 - 0.5 11/[address] [facility] [address] Studies Basophils [facility] - (CBC) [place] Laboratory Estimat >90 90 11/[address] [facility] [address] Studies Glomerular [facility] - Filtration [place] Rate Laboratory Creatinine 0.78 0.61 - 11/[address] [facility] [address] Studies 1.24 [facility] [place] Laboratory Blood Urea 17 6 - 20 11/[address] [facility] Studies Nitrogen [facility] [place] Laboratory Sodium Level 139 135 - 145 11/[address] [facility] Studies /2018 [facility] [place] Laboratory Potassium 4.4 3.6 - 5.0 11/[address] [facility] Studies Level /2018 [facility] [place] Laboratory Glucose Level 112 65 - 120 11/[address] [facility] Studies /2018 [facility] [place] Laboratory Chloride 105 101 - 111 11/20 [facility] Studies Level /2018 [facility] [place] Laboratory Carbon 27 21 - 31 11/20 [facility]. Studies Dioxide Level /2017 [facility] [place] Laboratory Calcium Level 9.9 8.5 - 10.5 11/[address] [facility] Studies /2018 [facility] [place] Laboratory Activated 32.7 24.3 - 11/20 [facility]. Studies Partial 36.9 /2018 [facility] - Thromboplast [place] Time Laboratory B-Type 413 09/20 [facility]. Studies Natriuretic /2016 [facility] Peptide [place] Laboratory Troponin I 0.06 09/16 [facility]. Studies /2016 [facility] [place] Laboratory Vancomycin 18.4 5 - 20 09/15 [facility]. Studies Level Trough /2016 [facility] [place] Laboratory Lactic Acid 19.6 4.5 - 19.8 09/15 [facility]. Studies Level /2016 [facility] [place] Laboratory Urine Hyaline >20 09/15 [facility]. Studies Casts /2016 [facility] [place] Laboratory Urine Calcium Urine 09/15 [facility]. Studies Oxalate Calcium /2016 [facility] - Crystals Oxalate [place] Crystals Laboratory Procalcitonin 0.37 09/15 [facility]. Studies /2016 [facility] [place] Laboratory Prothrombin 13.0 9.5 - 12.5 09/15 [facility]. Studies Time /2016 [facility] [place] Laboratory INR 1.10 09/15 [facility]. Studies International /2017 [facility] Normalized [place] Ratio Laboratory Sedimentation 38 0 - 20 09/15 [facility]. Studies Rate, /2017 [facility] [place] Laboratory C-Reactive 94.6 09/15 [facility]. Studies Protein /2016 [facility] [place] Laboratory Total 1.2 0.3 - 1.2 09/15 [facility] Studies Bilirubin /2016 [facility] [place] Laboratory Serum Total 7.9 6.0 - 8.3 09/15 [facility]. Studies Protein /2016 [facility] [place] Laboratory Globulin 4.2 2.3 - 3.5 09/15 [facility]. Studies /2016 [facility] [place] Laboratory Direct 0.3 0 - 0.2 09/15 [facility] Studies Bilirubin /2016 [facility] [place] Laboratory Creatine 2.0 0.3 - 4.0 09/15 [facility] Studies Kinase MB /2016 [facility] [place] Laboratory Creatine 120 22 - 269 09/15 [facility]. Studies Kinase /2016 [facility] [place] Laboratory Aspartate 32 10 - 42 09/15 [facility]. Studies Amino Transf /2016 [facility] - (AST/SGOT) [place] Laboratory Amylase Level 43 28 - 100 09/15 [facility]. Studies /2016 [facility] [place] Laboratory Alkaline 60 42 - 121 09/15 [facility] Studies Phosphatase /2016 [facility] [place] Laboratory Albumin/Globu 0.9 1.1 - 1.8 09/15 [facility] Studies yogesh Ratio /2016 [facility] [place] Laboratory Albumin 3.7 3.2 - 5.5 09/15 [facility]. Studies /2016 [facility] [place] Laboratory Alanine 28 10 - 60 09/15 [facility] Studies Aminotransfer /2016 [facility] ase [place] (ALT/SGPT) Laboratory Rapid <0.03 09/15 [facility] Studies Troponin I /2016 [facility] [place] Laboratory Lipase 26 22 - 51 09/15 [facility]. Studies [facility] [place] Laboratory Urine Total 2925 08/27 [facility] Studies Volume [facility] - Hours [place] Laboratory Urine Total 468 08/27 [facility] Studies Protein [facility] - Hour [place] Laboratory Urine 232 08/27 [facility] Studies Protein/Creat [facility] - inine Ratio [place] 24hr Laboratory Urine Protein Urine 08/27 [facility] Studies Electrophores Protein [facility] - is Intrp Electrophor [place] esis Intrp Laboratory Urine PEP Urine PEP 08/27 [facility] Studies Abnormal Abnormal [facility] - Protein Band Protein [place] 3 Band 3 Laboratory Urine PEP Urine PEP 08/27 [facility]. Studies Abnormal Abnormal [facility] - Protein Band Protein [place] 2 Band 2 Laboratory Urine PEP Urine PEP 08/27 [facility]. Studies Abnormal Abnormal [facility] - Protein Band Protein [place] 1 Band 1 Laboratory Urine Gamma 0 08/27 [facility]. Studies Globulin [facility] [place] Laboratory Urine 2.02 08/27 [facility]. Studies Creatinine [facility] - Hour [place] Laboratory Urine Beta 0 08/27 [facility]. Studies Globulin [facility] [place] Laboratory Urine 0 08/27 [facility]. Studies [id number] [facility] - kim [place] Laboratory Urine 0 08/27 [facility]. Studies [id number] /2016 [facility] - yogesh [place] Laboratory Urine Albumin 100 08/27 St. Studies 24 Hours [facility] - [place] Laboratory Ur Total Ur Total 08/27 . Studies Lambda Light Lambda /2016 [facility] - Chains 24 Hr Light [place] Chains 24 Hr Laboratory Ur Total 23.69 08/27 [facility]. Studies [place] Light /2016 [facility] - Chains 24 Hr [place] Laboratory Free Lambda <0.40 08/27 [facility]. Studies Light Chains, [facility] - Quant [place] Laboratory Free [place] 0.81 08/27 [facility] Studies Light Chains, [facility] - Quant [place] Laboratory Urine Total 2925 08/27 [facility]. Studies Volume [facility] [place] Laboratory Urine Random 12 08/27 [facility]. Studies Total Protein [facility] [place] Pathology Reports No Data Provided for This Section Diagnostic Reports Report Value Date Source Bone Marrow Bio/Aspr PROCEDURE: 11/26/2018 [facility] CT Guided bone marrow biopsy. INDICATION: monoclonal gammopathy. TECHNICAL: CT imaging performed at this location utilizes radiation dose optimization techniques which include one or more of the following: -Automated exposure control -Adjustment of the mA and/or kV according to patient size -Use of iterative reconstruction technique CT Radiation Dose: PNT=301.83 mGy-cm MODERATE SEDATION: I supervised moderate sedation during this procedure. The patient was monitored by nurse using automated blood pressure, EKG and pulse oximetry. The moderate sedation record is perma nently stored in the hospital information system. The personal supervised moderate sedation time was 16 minutes. Medications administered: 3 mg of IV Versed and 150 micrograms of IV Fentanyl. COMPARISON: None. PROCEDURE: The procedure, risks, benefits and alternatives were discussed. Informed consent was obtained. Timeout was performed prior to the procedure. The patient was placed in the prone position. 1% lidocaine was used for local anesthesia. Using CT guidance, 11-gauge needle was advanced into the posterior left iliac bone. CT imaging confirmed proper positioning of the needle tip within the medullary bone. Approximately 1 cc of bone marrow was aspirated and given to pathology. The presence of spicules was confirmed. 12 cc of bone marrow was aspirate d and given to pathology. An 11-gauge core biopsy sample of the bone marrow was then obtained utilizing the guide needle. The core biopsy sample was placed in formalin container and appeared grossly clotilde quate. Pressure was applied at the puncture site with adequate hemostasis. No evident complications and the patient had no complaints. IMPRESSION: 1. Technically successful CT-guided bone marrow biopsy. Final pathology report is pending. Consultation Notes No Data Provided for This Section Discharge Summaries No Data Provided for This Section History and Physicals No Data Provided for This Section Vital Signs Vital Sign Value Date Comments Source BMI Calculated 33.59 11/26/2018 [facility] Weight 103.182 11/26/2018 [facility] Height 175.26 cm 11/26/2018 [facility] Temperature Oral (F) 97.1 F 11/25/[address] [facility] [place] Heart Rate 77 11/25/[address] [facility] [place] Respitory Rate 18 11/25/[address] [facility] [place] Systolic (mm Hg) 112 11/25/[address] [facility] [place] Diastolic (mm Hg) 73 11/25/[address] [facility] [place] Height 70 11/20/[address] [facility] [place] Weight 240 11/20/[address] [facility] [place] Encounters Location Location Encounter Encounter Reason Attending ADM DC Status Source Details Type Number For Provider Date Date Visit [facility] Outpatient [id number] Caesar 09/21 09/21 Active Surgical Valicek /2014 [facility] Registered [id number] 08/[address] [facility] [place] [facility] [id number] 09/15 09/[address] [facility] [place] [facility] [id number] 09/20 09/[address] [facility] [place] [facility] [id number] 11/25 11/[address] [facility] [place] [facility] Outpatient [id number] Colleen 11/26 11/27 Chris Mendoza /[address] [facility] [place] [place] Procedures Procedure Code Date Perfomer Comments Source CYSTOSCOPY, [id number] Josh [facility] - TRANSURETHRAL 8 [place] RESECTION OF.. [place] Count [id number] [facility] - 8 [place] [id number] [facility] - 8 [place] Chest Pa And Lat ([id number] [facility] - Views) 8 [place] Chest Single View [id number] [facility] - 7 [place] Gram Stain [id number] [facility] - 7 [place] Culture & [id number] [facility] - Sensitivity 7 [place] Gram Stain [id number] [facility] - 7 [place] Anaerobic Blood [id number] [facility] - Culture 7 [place] Aerobic Blood [id number] [facility] - Culture 7 [place] Magnetic resonance 74204 Surgical (eg, proton) 5 Specialty imaging, [facility] of extremity, other [place] than joint; without contrast material(s) Ankle reconstruction [id number] [facility] Knee replacement [id number] [facility] ORIF - Open [id number] ankle ORIF [facility] reduction and internal fixation of fracture<sup>1</sup> Prostate [id number] [facility] manipulation Assessment and Plan No Data Provided for This Section Plan of Care Plan of Care Date Source Instructions 11/25/[address] [facility] [place] DI for Transurethral Resection of the Prostate Instructions 11/25/[address] [facility] [place] DI for Transurethral Resection of the Prostate Social History Social History Date Source Social History TypeResponse 11/26/2018 [facility] Smoking Status Never smoker; Ready to change: No; Concerns about tobacco use in household: No ; Exposure to Tobacco Smoke None; Cigarette Smoking Last 365 Days No; Reg Smoking Cessation Counseling No entered on: 11/26/18 Query Response Date Recorded Comment 11/25/2017 YVES Garay Alcohol Use? No September 15, 2017 9:30pm CD- Drugs? No September 15, 2017 9:30pm Query Response Start Date Stop Date Smoking Status Never smoker Family History Value Date Source Query Response Instance Date Recorded Comment 11/25/2017 YVES Garay Nurses notes COPD, ARTHRITIS, OSTEOPEROSIS Mother September 15, 2017 9:30pm Medical History Heart disease Other (see notes) Mother September 15, 2017 9:30pm Nurses notes COPD, ARTHRITIS, OSTEOPEROSIS December 08, 2016 1:09pm Medical History Heart disease Other (see notes) December 08, 2016 1:09pm Advance Directives Order Name Results Value Date Source Advance Directives Advance Directives Advance Directive Response Recorded Date/Time 11/25/2017 YVES Merino - Does Patient Have Living Will Katerin No September 17, 2017 6:00pm Durable Power of Hotel Custodian for Health Care No September 15, 2017 9:30pm Would you like additional information No September 15, 2017 9:30pm Functional Status No Data Provided for This Section
[2019-07-10] MEDS ORDERED: MAGNESIUM SULFATE 1 gm IVPB 1 GM/100 ML BAG IV ONE (14:52)
[2019-07-10] MEDS ORDERED: IPRATROPIUM BROM 0.5MG/2.5ML ONE (14:52)
[2019-07-10] MEDS ORDERED: LEVALBUTEROL 1.25 MG/3 ML NEB ONE ×3 (14:52→16:53)
[2019-07-10] MEDS ORDERED: METHYLPREDNISOLONE 125 MG INJ ONE (14:52)
[2019-07-10 15:07] LABS: Hematocrit 43.3 % (39.6-49.0); RBC Red Blood Cell Count 4.78 M/uL (4.33-5.43)
[2019-07-10 15:08] LABS: Absolute Lymphocytes (CBC) 1.9 K/uL (0.7-4.9); Basophils % 1.1 % (0-1.3); Lymphocytes % 22.4 % (15.3-44.8); MPV 7.9 fL (7.6-11.3)
[2019-07-10 15:23] LABS: BUN Blood Urea Nitrogen 15 mg/dL (7-18); Bicarbonate 29 mmol/L (21-32); Glucose Level 112 mg/dL (74-106); Potassium 3.7 mmol/L (3.5-5.1); Sodium Level 142 mmol/L (136-145)
--- NOTE | 2019-07-10 16:08 | RAD REPORT ---
EXAM DESCRIPTION: RAD - Chest Single View - 07/10/2019 3:30 pm CLINICAL HISTORY: Cough and congestion, shortness of breath COMPARISON: November 2017 TECHNIQUE: AP portable chest image was obtained 1458 hours . FINDINGS: Lung volumes are low accentuating existing interstitial pattern. This could mask early int erstitial edema or infiltrate. No focal mass or consolidation. Heart and vasculature are normal. No m easurable pleural effusion and no pneumothorax. No acute bony abnormality seen. No acute aortic findi ngs suspected. IMPRESSION: Limited shallow inspiration film without focal mass or consolidation. Shallow inspiration can mask early interstitial edema or infiltrate in a patient with chronic lung di sease.
--- NOTE | 2019-07-10 17:22 | EDPHYS ---
Physician Documentation [facility] Name: Esvin Díaz Age: 69 yrs Sex: Male : 1950 Arrival Date: 07/10/2019 Time: 14:27 Bed 6 Private MD: Taurus Rojo V ED Physician Curtis Cuevas HPI: 07/10 15:33 This 69 yrs old Male presents to ER via Ambulatory with complaints of rn Breathing Difficulty, Congestion. 15:33 The patient has shortness of breath with light activity. rn 15:33 Duration: The symptoms are intermittent. The patient's shortness of breath is rn aggravated by exertion, is alleviated by nothing. Severity of symptoms: At their worst the symptoms were moderate in the emergency department the symptoms have improved. The patient has experienced similar episodes in the past. Reports has COPD and asthma, + cough for last few days with WATSON. . Historical: - Allergies: 14:31 Isosorbide Mononitrate (unrinary retention); aa5 - PMHx: 14:31 BPH; COPD; Hypertension; Rheumatoid Arthritis; aa5 - PSHx: 14:31 left knee ACL sx; left ankle sx; prostate; aa5 - Immunization history:: Pneumococcal vaccine is up to date, Flu vaccine is up to date. - Social history:: Smoking status: Patient/guardian denies using tobacco. - Ebola Screening: : No symptoms or risks identified at this time. - Family history:: not pertinent. - Hospitalizations: : No recent hospitalization is reported. ROS: 15:33 Constitutional: Negative for fever, chills, and weight loss, Eyes: Negative for injury, rn pain, redness, and discharge, Neck: Negative for injury, pain, and swelling, Cardiovascular: Negative for chest pain, palpitations, and edema, Respiratory: + sob and cough Abdomen/GI: Negative for abdominal pain, nausea, vomiting, diarrhea, and constipation, MS/Extremity: Negative for injury and deformity, Skin: Negative for injury, rash, and discoloration, Neuro: Negative for headache, weakness, numbness, tingling, and seizure. Exam: 15:33 Constitutional: Overweight male, no acute distress sitting on edge of bed Head/Face: rn Normocephalic, atraumatic. Eyes: Pupils equal round and reactive to light, extra-ocular motions intact. Lids and lashes normal. Conjunctiva and sclera are non-icteric and not injected. Cornea within normal limits. Periorbital areas with no swelling, redness, or edema. Cardiovascular: Regular rate and rhythm. No pulse deficits. Respiratory: + mild tachypnea with bilateral wheezing Skin: Warm, dry with normal turgor. Normal color with no rashes, no lesions, and no evidence of cellulitis. MS/ Extremity: Pulses equal, no cyanosis. Neurovascular intact. Full, normal range of motion. Equal circumference. Neuro: Awake and alert, GCS 15, oriented to person, place, time, and situation. Cranial nerves II-XII grossly intact. Motor strength 5/5 in all extremities. Sensory grossly intact. Cerebellar exam normal. Normal gait. Vital Signs: 14:32 BP 158 / 74; Pulse 77; Resp 16 S; Temp 98.3(O); Pulse Ox 93% on R/A; Weight 112.04 kg; aa5 Height 5 ft. 8 in. (172.72 cm) (R); Pain 0/10; 16:14 BP 117 / 71; Pulse 85; Resp 18; Pulse Ox 96% on R/A; ph 17:15 BP 124 / 70; Pulse 83; Resp 20; Temp 98.2(TE); Pulse Ox 100% on Nebulizer Mask; mh5 17:32 BP 119 / 72; Pulse 83; Resp 17; Temp 98.5; Pulse Ox 100% ; bp 14:32 Body Mass Index 37.56 (112.04 kg, 172.72 cm) aa5 MDM: 14:43 Patient medically screened. rn 17:18 Differential diagnosis: asthma, Bronchitis Chronic Obstructive Pulmonary Disease rn pneumonia, Pneumothorax pulmonary edema. Data reviewed: vital signs, nurses notes, lab test result(s), radiologic studies, plain films, and as a result, I will discharge patient. Counseling: I had a detailed discussion with the patient and/or guardian regarding: the historical points, exam findings, and any diagnostic results supporting the discharge/admit diagnosis, lab results, radiology results, the need for outpatient follow up, to return to the emergency department if symptoms worsen or persist or if there are any questions or concerns that arise at home. 17:20 Response to treatment: the patient's symptoms have markedly improved after treatment. rn Special discussion: I discussed with the patient/guardian in detail that at this point there is no indication for admission to the hospital. It is understood, however, that if the symptoms persist or worsen the patient needs to return immediately for re-evaluation. 17:20 ED course: Oxygenation improved, feels better, ambulatory to bathroom, will dc home. . rn 07/10 14:47 Order name: CBC with Diff; Complete Time: 16:17 rn 07/10 14:47 Order name: Basic Metabolic Panel; Complete Time: 16:17 rn 07/10 14:47 Order name: XRAY Chest (1 view); Complete Time: 16:17 rn 07/10 14:47 Order name: Procalcitonin; Complete Time: 16:27 rn 07/10 14:47 Order name: IV Start; Complete Time: 14:57 rn Administered Medications: 14:55 Drug: SOLU-Medrol 125 mg Route: IVP; Site: right antecubital; bp 16:15 Follow up: Response: No adverse reaction ph 14:55 Drug: Xopenex (3) 1.25 mg Route: Inhalation; bp 16:15 Follow up: Response: No adverse reaction ph 14:55 Drug: AtroVENT Aerosol 0.5 mg Route: Inhalation; bp 16:14 Follow up: Response: No adverse reaction ph 14:55 Drug: Magnesium Sulfate 1 grams Route: IVPB; Infused Over: 1 hrs; Site: right bp antecubital; 16:14 Follow up: Response: No adverse reaction; IV Status: Completed infusion ph 16:54 Drug: Xopenex 1.25 mg Route: Inhalation; bp Disposition: 07/10/19 17:21 Discharged to Home. Impression: Chronic obstructive pulmonary disease, unspecified, Chronic obstructive pulmonary disease with (acute) exacerbation, Bronchitis, not specified as acute or chronic. - Condition is Stable. - Discharge Instructions: Acute Bronchitis, Adult, Chronic Obstructive Pulmonary Disease Exacerbation. - Prescriptions for Prednisone 20 mg Oral Tablet - take 3 tablet by ORAL route once daily for 5 days; 15 tablet. Albuterol Sulfate 90 mcg/actuation - inhale 1-2 puff by INHALATION route every 4-6 hours; 1 Inhaler. Guaifenesin AC 10- 100 mg/5 mL Oral Liquid - take 10 milliliter by ORAL route every 4 hours As needed; 240 milliliter. Zithromax Z- Cam 250 mg Oral Tablet - take 1 tablet by ORAL route as directed for 5 days Day 1 - take two (2) tablets one time. Day 2, 3, 4 , 5 take one (1) tablet once daily.; 6 tablet. - Medication Reconciliation Form, Thank You Letter, Antibiotic Education, Prescription Opioid Use form. - Follow up: Private Physician; When: As needed; Reason: Recheck today's complaints, Re-evaluation by your physician. - Problem is new. - Symptoms have improved. Signatures: Dispatcher [employer] EDMS Curtis Cuevas MD MD rn Calderon, Audri RN RN aa5 Santos Osorio RN RN bp Tabatha Khalil RN ph Corrections: (The following items were deleted from the chart) 17:36 17:21 07/10/2019 17:21 Discharged to Home. Impression: Chronic obstructive pulmonary bp disease, unspecified; Chronic obstructive pulmonary disease with (acute) exacerbation; Bronchitis, not specified as acute or chronic. Condition is Stable. Forms are Medication Reconciliation Form, Thank You Letter, Antibiotic Education, Prescription Opioid Use. Follow up: Private Physician; When: As needed; Reason: Recheck today's complaints, Re-evaluation by your physician. Problem is new. Symptoms have improved. rn
--- NOTE | 2019-07-10 17:22 | ER ---
Nurse's Notes [facility] Name: Esvin Díaz Age: 69 yrs Sex: Male : 1950 Arrival Date: 07/10/2019 Time: 14:27 Bed 6 Private MD: Taurus Rojo V Diagnosis: Chronic obstructive pulmonary disease, unspecified;Chronic obstructive pulmonary disease with (acute) exacerbation;Bronchitis, not specified as acute or chronic Presentation: 07/10 14:30 Presenting complaint: Patient states: "for the last few days I've had congestion, aa5 cough, and sometimes I feel short of breath". Transition of care: patient was not received from another setting of care. Onset of symptoms was July 2019. Risk Assessment: Do you want to hurt yourself or someone else? Patient reports no desire to harm self or others. Care prior to arrival: None. 14:30 Acuity: NATACHA 3 aa5 14:30 Method Of Arrival: Ambulatory aa5 14:30 Initial Sepsis Screen: Does the patient meet any 2 criteria? No. Patient's initial aa5 sepsis screen is negative. Does the patient have a suspected source of infection? No. Patient's initial sepsis screen is negative. Triage Assessment: 14:31 General: Appears in no apparent distress. comfortable, Behavior is calm, cooperative, bp appropriate for age. Pain: Denies pain. EENT: No deficits noted. Neuro: No deficits noted. Cardiovascular: No deficits noted. Respiratory: Reports shortness of breath cough that is Onset: The symptoms/episode began/occurred at an unknown time. the patient has mild shortness of breath. GI: No signs and/or symptoms were reported involving the gastrointestinal system. : No signs and/or symptoms were reported regarding the genitourinary system. Derm: No deficits noted. Musculoskeletal: No deficits noted. Historical: - Allergies: 14:31 Isosorbide Mononitrate (unrinary retention); aa5 - PMHx: 14:31 BPH; COPD; Hypertension; Rheumatoid Arthritis; aa5 - PSHx: 14:31 left knee ACL sx; left ankle sx; prostate; aa5 - Immunization history:: Pneumococcal vaccine is up to date, Flu vaccine is up to date. - Social history:: Smoking status: Patient/guardian denies using tobacco. - Ebola Screening: : No symptoms or risks identified at this time. - Family history:: not pertinent. - Hospitalizations: : No recent hospitalization is reported. Screenin:00 Abuse screen: Denies threats or abuse. Denies injuries from another. Nutritional bp screening: No deficits noted. Tuberculosis screening: No symptoms or risk factors identified. Fall Risk None identified. Assessment: 14:31 General: SEE TRIAGE NOTE. Cardiovascular: Rhythm is sinus rhythm. Respiratory: Airway bp is patent Respiratory effort is even, unlabored, Breath sounds are coarse bilaterally. 16:12 Reassessment: Patient appears in no apparent distress at this time. Patient and/or ph family updated on plan of care and expected duration. Pain level reassessed. Patient is alert, oriented x 3, equal unlabored respirations, skin warm/dry/pink. Pt reports that breathing has improved after neb tx and IV meds, resting quietly at this time, awaiting lab and CXR results, family at bedside. 17:32 Reassessment: PT D/C HOME AMBULATORY WITH FAMILY, DX WITH COPD. bp Vital Signs: 14:32 BP 158 / 74; Pulse 77; Resp 16 S; Temp 98.3(O); Pulse Ox 93% on R/A; Weight 112.04 kg; aa5 Height 5 ft. 8 in. (172.72 cm) (R); Pain 0/10; 16:14 BP 117 / 71; Pulse 85; Resp 18; Pulse Ox 96% on R/A; ph 17:15 BP 124 / 70; Pulse 83; Resp 20; Temp 98.2(TE); Pulse Ox 100% on Nebulizer Mask; mh5 17:32 BP 119 / 72; Pulse 83; Resp 17; Temp 98.5; Pulse Ox 100% ; bp 14:32 Body Mass Index 37.56 (112.04 kg, 172.72 cm) aa5 ED Course: 14:27 Patient arrived in ED. ag5 14:27 Taurus Rojo MD is Private Physician. ag5 14:30 Arm band placed on. aa5 14:31 Triage completed. aa5 14:39 Santos Osorio, DALTON is Primary Nurse. bp 14:43 Curtis Cuevas MD is Attending Physician. rn 14:57 Initial lab(s) drawn, by wv, sent to lab. Inserted saline lock: 18 gauge in right 5 antecubital area, using aseptic technique. upper arm, using aseptic technique. 14:58 Patient has correct armband on for positive identification. Placed in gown. Bed in low mh5 position. Call light in reach. Side rails up X 1. Adult w/ patient. Pillow given. french tutor on. Pulse ox on. NIBP on. 14:59 CBC with Diff Sent. 5 14:59 Basic Metabolic Panel Sent. [facility] 14:59 Procalcitonin Sent. [facility] 15:00 No provider procedures requiring assistance completed. IV discontinued, intact, bp bleeding controlled, No redness/swelling at site. Pressure dressing applied. 15:31 XRAY Chest (1 view) In Process Unspecified. EDMS Administered Medications: 14:55 Drug: SOLU-Medrol 125 mg Route: IVP; Site: right antecubital; bp 16:15 Follow up: Response: No adverse reaction ph 14:55 Drug: Xopenex (3) 1.25 mg Route: Inhalation; bp 16:15 Follow up: Response: No adverse reaction ph 14:55 Drug: AtroVENT Aerosol 0.5 mg Route: Inhalation; bp 16:14 Follow up: Response: No adverse reaction ph 14:55 Drug: Magnesium Sulfate 1 grams Route: IVPB; Infused Over: 1 hrs; Site: right bp antecubital; 16:14 Follow up: Response: No adverse reaction; IV Status: Completed infusion ph 16:54 Drug: Xopenex 1.25 mg Route: Inhalation; bp Outcome: 17:21 Discharge ordered by . rn 17:33 Discharged to home ambulatory, with family. bp 17:33 Condition: stable 17:33 Discharge instructions given to patient, Instructed on discharge instructions, follow up and referral plans. medication usage, Demonstrated understanding of instructions, follow-up care, medications, Prescriptions given X 3. 17:36 Patient left the ED. bp Signatures: Dispatcher [employer] EDMS Curtis Cuevas MD MD rn Calderon, Audri, RN RN [facility] Tabatha Khalil RN RN Radha Altamirano [facility] Santos Osorio RN RN bp Bridgette Hernandez [facility]
[2019-07-10 19:46] VITALS: BP 119/72; TEMP 98.5; O2SAT 100
== END 2019-07-10 17:36 | disposition home or self-care (01) ==
LOC: ER 14:25
DX: J44.1 Chronic obstructive pulmonary disease with (acute) exacerbation (principal); J40 Bronchitis, not specified as acute or chronic
CPT/HCPCS: 96365; 85025; 80048; 36415; 84145; 71045; 96375; 99285; J3475; J2930

== ENCOUNTER 2020-06-07 00:46 | Emergency (ER) | payer OTHER ==
--- OUTSIDE RECORDS SUMMARY | 2020-06-07 00:49 | XMS REPORT | Continuity of Care Document ---
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 [place] Medications Medication Details Route Status Patient Ordering Order Source Instructions Provider Date Advair Diskus 1 puff, Active 11/26/19 [place] 250 mcg-50 INHALATION 19 mcg , Daily, 0 inhalation Refill(s) powder losartan 50 50 mg = 1 Active 11/26/19 [place] mg oral tab, PO, 19 tablet Daily, # 90 tab, 1 Refill(s) Citracal + D 2 tab, Active 11/26/19 [place] 250 mg-500 CHEW, 19 intl units Daily, 0 oral tablet, Refill(s) chewable Allergies, Adverse Reactions, Alerts Substance Category Reaction Severity Reaction Status Date Comments S ource type Reported No Known Assertion Drug Medication allergy [place] and Allergies Immunizations No Data Provided for This Section Results Order Name Results Value Reference Date Interpretation Comments Nicolle rce Range REFERENCE Test Name FISH-MM 11/27 LAB RESULTS ENRICHED [place] [facility] Reference 11/27 LAB RESULTS lab results [place] scanned in [facility]. Results displayed in Results-Lab -REFERENCE LAB-Outside Lab Documents (Imaged) under date/time results were scanned. Report sent for scanning on 12/08/2018 10:57_. [facility] REPORT HEMATOLOGY RBC Morph Normal 11/26 (11/26/18 10:12 AM) [place] and HEMATOLOGY Plt Morph Normal 11/26 (11/26/18 10:12 AM) [place] and HEMATOLOGY Segs 64.0 45.0 - 75.0 11/26 [place] HEMATOLOGY Lymphocytes 22.0 20.0 - 40.0 11/26 [place] HEMATOLOGY Monocytes 12.0 2.0 - 12.0 11/26 [place] HEMATOLOGY Eosinophils 2.0 0.0 - 4.0 11/26 [place] HEMATOLOGY Basophils 0.0 0.0 - 1.0 11/26 [place] HEMATOLOGY Neutrophils # 6.0 1.5 - 8.1 11/26 [place] HEMATOLOGY Lymphocytes # 2.1 1.0 - 5.5 11/26 [place] HEMATOLOGY Monocytes # 1.1 0.0 - 0.8 11/26 [place] HEMATOLOGY Eosinophils # 0.2 0.0 - 0.5 11/26 [facility] Basophils # 0.0 0.0 - 0.2 11/26 [place] HEMATOLOGY Tot Cell Ct 100 11/26 [facility] Retic Auto 1.1 0.5 - 1.5 11/26 [facility] WBC 9.4 3.7 - 10.4 11/26 [place] HEMATOLOGY RBC 4.59 4.70 - 6.10 11/26 [place] HEMATOLOGY Hgb 13.9 14.0 - 18.0 11/26 [place] HEMATOLOGY Hct 39.9 42.0 - 54.0 11/26 [place] HEMATOLOGY MCV 86.9 80.0 - 94.0 11/26 [place] HEMATOLOGY MCH 30.2 27.0 - 31.0 11/26 [facility] MCHC 34.8 32.0 - 36.0 11/26 [place] HEMATOLOGY RDW 13.9 11.5 - 14.5 11/26 [place] HEMATOLOGY Platelet 342 133 - 450 11/26 [facility] MPV 7.3 7.4 - 10.4 11/26 [place] Pathology Reports No Data Provided for This Section Diagnostic Reports Report Value Date Source Bone Marrow Bio/Aspr PROCEDURE: 11/26/2018 [facility] CT Guided bone marrow biopsy. INDICATION: monoclonal gammopathy. TECHNICAL: CT imaging performed at this location utilizes radiation dose optimization techniques which include one or more of the following: -Automated exposure control -Adjustment of the mA and/or kV according to pat ient size -Use of iterative reconstruction technique CT Radiation Dose: DLP = 365.83 mGy-cm MODERATE SEDATION: I superv ised moderate sedation during this procedure. The patient was monitored by nurse using automated blood pressure, EKG and pulse oximetry. The moderate sedation record is perma nently stored in the [employer] information system. The personal supervised moderate sedation time was 16 minutes. Medications administered: 3 mg of IV Soheila sed and 150 micrograms of IV Fentanyl. COMPARISON: None. PROCEDURE: The procedure, risks, benefi ts and alternatives were discussed. Informed consent was obtained. Timeout was performed prior to the procedure. The patient was placed in th e prone position. 1% lidocaine was used for local anesthesia. Using CT guidance, 11-gauge needle was advanced into the posterior left iliac bone. CT imaging confirmed proper positioning of the needle ti p within the medullary bone. Approximately 1 cc [...] had no complaints. IMPRESSION: 1. Technically successful CT -guided bone marrow biopsy. Final pathology report is pending. Consultation Notes No Data Provided for This Section Discharge Summaries No Data Provided for This Section History and Physicals No Data Provided for This Section Vital Signs Vital Sign Value Date Comments Source Height 175.26 cm 11/26/2018 [facility] Weight 103.182 11/26/2018 [facility] BMI Calculated 33.59 11/26/2018 [facility] Encounters Location Location Encounter Encounter Reason Attending ADM MA Stat us Source Details Type Number For Provider Date Date Visit [facility] Outpatient [id number] Caesar 09/21 09/21 Active Surgic al [place] /2014 [facility] Outpatient [id number] Colleen 11/26 11/27 Chris Li /2018 [facility] Procedures Procedure Code Date Perfomer Comments Source Magnetic resonance [id number] 09/21/2015 [facility] al (eg, proton) [facility] o f extremity, other [place] than joint; without contrast material(s) Ankle reconstruction [id number] [facility] Knee replacement [id number] [facility] [place] and ORIF - Open [id number] ankle ORIF [facility] reduction and internal fixation of fracture<sup>1</sup> Prostate [id number] [facility] manipulation Assessment and Plan No Data Provided for This Section Plan of Care No Data Provided for This Section Social History Social History Date Source Social History TypeResponse 11/26/2018 [place] Smoking Status Never smoker; Ready to change: No; Andree rns about tobacco use in household: No; Exposure to Tobacco Smoke None; Cigarette Smoking Last 365 Days No; Reg Smoking Cessation Counseling No entered on: 11/26/18 Family History No Data Provided for This Section Advance Directives No Data Provided for This Section Functional Status No Data Provided for This Section
[2020-06-07] MEDS ORDERED: HYDROCODONE/APAP 5/325 MG TAB ONE (02:34)
--- NOTE | 2020-06-07 04:18 | ER ---
Nurse's Notes [facility] Name: Esvin Díaz Age: 70 yrs Sex: Male : 1950 Arrival Date: 06/07/2020 Time: 00:49 Bed 5 Private MD: Diagnosis: Pain in right lower leg Presentation: 06/07 01:02 Chief complaint: Patient states: i have left leg pain since morning upon waking up. mg2 denies trauma,. Coronavirus screen: At this time, the client does not indicate any symptoms associated with coronavirus-19. Ebola Screen: No symptoms or risks identified at this time. Initial Sepsis Screen: Does the patient meet any 2 criteria? No. Patient's initial sepsis screen is negative. Does the patient have a suspected source of infection? No. Patient's initial sepsis screen is negative. Risk Assessment: Do you want to hurt yourself or someone else? Patient reports no desire to harm self or others. Onset of symptoms was June 06, 2020. 01:02 Method Of Arrival: Wheelchair mg2 01:02 Acuity: NATACHA 4 mg2 Triage Assessment: 01:08 General: Appears in no apparent distress. comfortable, Behavior is calm, cooperative. mg2 Pain: Complains of pain in right calf. EENT: No signs and/or symptoms were reported regarding the EENT system. Neuro: Level of Consciousness is awake, alert, obeys commands, Oriented to person, place, time, situation. Cardiovascular: Capillary refill < 3 seconds Patient's skin is warm and dry. Respiratory: Airway is patent Respiratory effort is even, unlabored, Respiratory pattern is regular, symmetrical. GI: No signs and/or symptoms were reported involving the gastrointestinal system. : No signs and/or symptoms were reported regarding the genitourinary system. Derm: Skin is intact, is healthy with good turgor, Skin is pink, warm \T\ dry. normal. Musculoskeletal: Circulation, motion, and sensation intact. Capillary refill < 3 seconds, Reports pain in right calf. Historical: - Allergies: 01:07 Isosorbide Mononitrate (unrinary retention); mg2 - Home Meds: : Advair Diskus 250-50 mcg/dose Inhl dsdv 1 puff 2 times per day [Active]; losartan 50 mg mg2 Oral tab 1 tab once daily [Active]; allopurinol 100 mg Oral tab 1 tab once daily [Active]; montelukast 10 mg oral tab 1 tab once daily [Active]; levocetirizine 5 mg oral tab 1 tab once daily [Active]; Citracal Oral [Active]; Ocuvite oral oral [Active]; finasteride 5 mg oral tab 1 tab once daily [Active]; - PMHx: 01:07 BPH; COPD; Hypertension; Rheumatoid Arthritis; mg2 - PSHx: 01:07 left knee surgery; mg2 - Immunization history:: Flu vaccine status is unknown. - Social history:: Smoking status: Patient denies any tobacco usage or history of. Patient/guardian denies using alcohol, street drugs, IV drugs. - Family history:: not pertinent. - Hospitalizations: : No recent hospitalization is reported. Screenin:09 Abuse screen: Denies threats or abuse. Denies injuries from another. Nutritional mg2 screening: No deficits noted. Tuberculosis screening: No symptoms or risk factors identified. Fall Risk Ambulatory Aid- Crutches/Cane/Walker (15 pts). Assessment: 01:08 General: see triage assessment. mg2 01:09 Reassessment: informed about the waiting time for ultrasound. mg2 Vital Signs: 01:02 BP 154 / 80; Pulse 89; Resp 18; Pulse Ox 95% on R/A; Weight 121.56 kg; Height 5 ft. 9 mg2 in. (175.26 cm); 01:10 Temp 99.3; mg2 02:25 BP 132 / 83; Pulse 80; Resp 18; Pulse Ox 95% on R/A; mg2 03:31 BP 143 / 84; Pulse 74; Resp 18; Pulse Ox 95% on R/A; mg2 04:33 BP 140 / 78; Pulse 75; Resp 18; Temp 99; Pulse Ox 100% on R/A; mg2 01:02 Body Mass Index 39.58 (121.56 kg, 175.26 cm) mg2 ED Course: 00:49 Patient arrived in ED. cf2 00:53 Curtis Cuevas MD is Attending Physician. rn 01:02 Jonathan Angel RN is Primary Nurse. mg2 01:05 Triage completed. mg2 01:08 Arm band placed on. mg2 01:09 Patient has correct armband on for positive identification. mg2 01:09 No provider procedures requiring assistance completed. Patient did not have IV access mg2 during this emergency room visit. 04:20 Extremity Venous Uni Ltd US In Process Unspecified. EDMS Administered Medications: 02:25 Drug: Coden 5 mg-325 mg 1 tabs Route: PO; mg2 04:32 Follow up: Response: No adverse reaction; Marked relief of symptoms; RASS: Alert and mg2 Calm (0) Outcome: 04:17 Discharge ordered by . rn 04:33 Discharged to home via wheelchair. mg2 04:33 Condition: stable 04:33 Discharge instructions given to patient, Instructed on discharge instructions, follow up and referral plans. medication usage, Demonstrated understanding of instructions, follow-up care, medications, Prescriptions given X 1. 04:34 Patient left the ED. mg2 Signatures: Dispatcher [employer] EDMS Curtis Cuevas MD MD rn Gardose, Michele, RN RN mg2 Frazier, [place] cf2
--- NOTE | 2020-06-07 04:19 | EDPHYS ---
Physician Documentation [facility] Name: Esvin Díaz Age: 70 yrs Sex: Male : 1950 Arrival Date: 06/07/2020 Time: 00:49 Bed 5 Private MD: ED Physician Curtis Cuevas HPI: 06/07 01:05 This 70 yrs old Male presents to ER via Wheelchair with complaints of leg rn pain, behind right knee. 01:05 The patient presents with pain. The complaints affect the posterior aspect of right rn knee and right calf. Onset: The symptoms/episode began/occurred this morning. Modifying factors: The symptoms are alleviated by knee brace/compression. the symptoms are aggravated by movement. Severity of symptoms: At their worst the symptoms were moderate, in the emergency department the symptoms have improved. The patient has not experienced similar symptoms in the past. Reports pain and tightness behind right knee and calf, no trauma, no fever, + hx of gout but reports right knee proper does not hurt. Reports better after ointment and compression brace, but then began to hurt more, wants to make sure doesn't have a blood clot. Denies knee swelling or pain in knee.. Historical: - Allergies: 01:07 Isosorbide Mononitrate (unrinary retention); mg2 - Home Meds: :07 Advair Diskus 250-50 mcg/dose Inhl dsdv 1 puff 2 times per day [Active]; losartan 50 mg mg2 Oral tab 1 tab once daily [Active]; allopurinol 100 mg Oral tab 1 tab once daily [Active]; montelukast 10 mg oral tab 1 tab once daily [Active]; levocetirizine 5 mg oral tab 1 tab once daily [Active]; Citracal Oral [Active]; Ocuvite oral oral [Active]; finasteride 5 mg oral tab 1 tab once daily [Active]; - PMHx: 01:07 BPH; COPD; Hypertension; Rheumatoid Arthritis; mg2 - PSHx: 01:07 left knee surgery; mg2 - Immunization history:: Flu vaccine status is unknown. - Social history:: Smoking status: Patient denies any tobacco usage or history of. Patient/guardian denies using alcohol, street drugs, IV drugs. - Family history:: not pertinent. - Hospitalizations: : No recent hospitalization is reported. ROS: 01:05 Constitutional: Negative for fever, chills, and weight loss, Eyes: Negative for injury, rn pain, redness, and discharge, Neck: Negative for injury, pain, and swelling, Cardiovascular: Negative for chest pain, palpitations, and edema, Respiratory: Negative for shortness of breath, cough, wheezing, and pleuritic chest pain, Abdomen/GI: Negative for abdominal pain, nausea, vomiting, diarrhea, and constipation, Back: Negative for injury and pain, MS/Extremity: + pain and tightness behind right knee Skin: Negative for injury, rash, and discoloration, Neuro: Negative for headache, weakness, numbness, tingling, and seizure. Exam: 01:05 Constitutional: This is a well developed, well nourished patient who is awake, alert, rn and in no acute distress. Skin: Warm, dry, no evidence of cellulitis. MS/ Extremity: Pulses equal, no cyanosis. Neurovascular intact. Equal circumference. No erythema or warmth right knee. No pain in right knee with extension/flexion. + swollen superficial veins of RLE below knee. No mass or tenderness behind right knee or along inner thigh. Vital Signs: 01:02 BP 154 / 80; Pulse 89; Resp 18; Pulse Ox 95% on R/A; Weight 121.56 kg; Height 5 ft. 9 mg2 in. (175.26 cm); 01:10 Temp 99.3; mg2 02:25 BP 132 / 83; Pulse 80; Resp 18; Pulse Ox 95% on R/A; mg2 03:31 BP 143 / 84; Pulse 74; Resp 18; Pulse Ox 95% on R/A; mg2 04:33 BP 140 / 78; Pulse 75; Resp 18; Temp 99; Pulse Ox 100% on R/A; mg2 01:02 Body Mass Index 39.58 (121.56 kg, 175.26 cm) mg2 MDM: 00:53 Patient medically screened. rn 02:35 ED course: Pt still waiting on U/S to be performed.. rn 03:13 ED course: Patient still waiting on mix technician to arrive, called again, tech rn states another 30 min until arrival.. 04:16 Differential diagnosis: DVT, perales's cyst, strain from recent squats. Data reviewed: rn vital signs, nurses notes, radiologic studies, ultrasound, and as a result, I will discharge patient. Counseling: I had a detailed discussion with the patient and/or guardian regarding: the historical points, exam findings, and any diagnostic results supporting the discharge/admit diagnosis, radiology results, the need for outpatient follow up, to return to the emergency department if symptoms worsen or persist or if there are any questions or concerns that arise at home. Special discussion: I discussed with the patient/guardian in detail that at this point there is no indication for admission to the hospital. It is understood, however, that if the symptoms persist or worsen the patient needs to return immediately for re-evaluation. ED course: U/S neg for DVT. Will dc home as possible strain given recent new squat exercises, vs perales's cyst. No evidence of intraarticular infection or problem. . 06/07 01:01 Order name: Extremity [employer] rn Administered Medications: 02:25 Drug: [place] 5 mg-325 mg 1 tabs Route: PO; mg2 04:32 Follow up: Response: No adverse reaction; Marked relief of symptoms; RASS: Alert and mg2 Calm (0) Disposition: 06/07/20 04:17 Discharged to Home. Impression: Pain in right lower leg. - Condition is Stable. - Discharge Instructions: Musculoskeletal Pain, Pain Without a Known Cause. - Prescriptions for Ultram 50 mg Oral Tablet - take 1 tablet by ORAL route every 6 hours As needed; 15 tablet. - Medication Reconciliation Form, Thank You Letter, Antibiotic Education, Prescription Opioid Use form. - Follow up: Private Physician; When: As needed; Reason: Recheck today's complaints, Re-evaluation by your physician. - Problem is new. - Symptoms have improved. Signatures: Dispatcher [employer] EDMS Curtis Cuevas MD MD rn Gardose, Michele, RN RN mg2 Corrections: (The following items were deleted from the chart) 04:34 04:17 06/07/2020 04:17 Discharged to Home. Impression: Pain in right lower leg. mg2 Condition is Stable. Forms are Medication Reconciliation Form, Thank You Letter, Antibiotic Education, Prescription Opioid Use. Follow up: Private Physician; When: As needed; Reason: Recheck today's complaints, Re-evaluation by your physician. Problem is new. Symptoms have improved. rn
[2020-06-07 04:44] VITALS: BP 140/78; TEMP 99; O2SAT 100
--- NOTE | 2020-06-07 08:19 | RAD REPORT ---
[facility] 4:20 am CLINICAL HISTORY: Right leg pain COMPARISON: None. FINDINGS: Right common femoral, superficial femoral, popliteal and right posterior tibial veins are compressible and demonstrate augmentation. Doppler demonstrates good flow. IMPRESSION: No evidence of deep venous thrombosis involving the right lower extremity.
== END 2020-06-07 04:34 | disposition home or self-care (01) ==
LOC: ER 00:46
DX: M79.661 Pain in right lower leg (principal); I10 Essential (primary) hypertension; J44.9 Chronic obstructive pulmonary disease, unspecified; Z88.8 Allergy status to other drugs, medicaments and biological substances
CPT/HCPCS: 93971; 99283

== ENCOUNTER 2021-08-03 22:10 | Emergency (ER) | payer OTHER ==
[2021-08-03] MEDS ORDERED: NA CHLORIDE 0.9% 500 ML ONE (23:54)
[2021-08-03] MEDS ORDERED: BUPIVACAINE 0.5% PF 10 ML VIAL ONE (23:54)
[2021-08-03] MEDS ORDERED: LIDOCAINE 1% W/EPI 1:100,000 MDV 20 ML VIAL ONE (23:54)
[2021-08-03] MEDS ORDERED: CLINDAMYCIN 900MG/D5W 900 MG/50 ML IVPB IV ONE (23:55)
[2021-08-04] MEDS ORDERED: LIDOCAINE 1% 20 ML MDV ONE (00:22)
[2021-08-04 00:33] LABS: Absolute Lymphocytes (CBC) 1.9 K/uL (0.7-4.9); Basophils % 1.4 % (0-1.3); Hematocrit 42.7 % (39.6-49.0); Lymphocytes % 14.6 % (15.3-44.8); MPV 8.3 fL (7.6-11.3); RBC Red Blood Cell Count 4.75 M/uL (4.33-5.43)
[2021-08-04 00:58] LABS: ALT/SGPT 20 U/L (12-78); AST/SGOT 14 U/L (15-37); Albumin 3.4 g/dL (3.4-5.0); Alkaline Phosphatase 98 U/L (45-117); BUN Blood Urea Nitrogen 16 mg/dL (7-18); Bicarbonate 27 mmol/L (21-32); Bilirubin Direct 0.3 mg/dL (0-0.2); Bilirubin Total 1.2 mg/dL (0.2-1.0); Glucose Level 97 mg/dL (74-106); Lipase 57 U/L (73-393); Potassium 4.1 mmol/L (3.5-5.1); Protein, Total 8.9 g/dL (6.4-8.2); Sodium Level 139 mmol/L (136-145)
--- NOTE | 2021-08-04 02:21 | ER ---
Nurse's Notes [facility] Name: Esvin Díaz Age: 71 yrs Sex: Male : 1950 Arrival Date: 08/03/2021 Time: 22:12 Bed 18 Private MD: Diagnosis: Cellulitis of other sites-right scrotum Presentation: 08/03 22:21 Chief complaint: Patient states: Pt states boil to right testicle x 3 days. Coronavirus df1 screen: Vaccine status: Patient reports receiving the 2nd dose of the covid vaccine. The client denies any previous COVID testing. Ebola Screen: Patient negative for fever greater than or equal to 101.5 degrees Fahrenheit, and additional compatible Ebola Virus Disease symptoms Patient denies exposure to infectious person. Patient denies travel to an Ebola-affected area in the 21 days before illness onset. Initial Sepsis Screen: Does the patient meet any 2 criteria? No. Patient's initial sepsis screen is negative. Risk Assessment: Do you want to hurt yourself or someone else? Patient reports no desire to harm self or others. Onset of symptoms was August 01, 2021. 22:21 Method Of Arrival: Ambulatory df1 22:21 Acuity: NATACHA 4 df1 22:35 Note Pt states boil to right testicle x 3 days with increased swelling. Denies any open df1 areas or drainage. No pain medication taken at home. Note Denies any trauma to affected area. 08/04 02:52 Initial Sepsis Screen: Does the patient have a suspected source of infection? No. sj1 Patient's initial sepsis screen is negative. Triage Assessment: 02:50 General: Appears in no apparent distress. Behavior is calm, cooperative, appropriate sj1 for age. Pain: Complains of pain in TESTICLES. EENT: No deficits noted. Neuro: No deficits noted. Cardiovascular: No deficits noted. Respiratory: No deficits noted. GI: No deficits noted. : No deficits noted. Derm: Abscess located on TESTICLES. Musculoskeletal: No deficits noted. Historical: - Allergies: 08/03 22:23 Isosorbide Mononitrate (unrinary retention); df1 - Home Meds: 22:23 BREO daily daily [Active]; allopurinol 100 mg Oral tab 1 tab once daily [Active]; df1 montelukast 10 mg Oral tab 1 tab once daily [Active]; levocetirizine 5 mg Oral tab 1 tab once daily [Active]; finasteride 5 mg Oral tab 1 tab once daily [Active]; - PMHx: 22:23 BPH; Hypertension; COPD; Rheumatoid Arthritis; df1 - PSHx: 22:23 TURP; df1 - Immunization history:: Adult Immunizations up to date, Client reports receiving the 2nd dose of the Covid vaccine. - Social history:: Smoking status: Patient denies any tobacco usage or history of. Patient/guardian denies using alcohol, street drugs, IV drugs. Screenin/02 02:49 Abuse screen: Denies threats or abuse. Denies injuries from another. Nutritional sj1 screening: No deficits noted. Tuberculosis screening: No symptoms or risk factors identified. Fall Risk None identified. Vital Signs: 08/03 22:21 BP 143 / 82; Pulse 91; Resp 18; Temp 99.1; Pulse Ox 100% on R/A; Weight 119.29 kg; df1 Height 5 ft. 9 in. (175.26 cm); Pain 8/10; 08/04 02:19 BP 112 / 57 LA Sitting (auto/reg); Pulse 75; Resp 16 S; Temp 99.2(O); Pulse Ox 94% on sj1 R/A; Pain 0/10; 08/03 22:21 Body Mass Index 38.84 (119.29 kg, 175.26 cm) df1 ED Course: 08/03 22:12 Patient arrived in ED. ja2 22:23 Triage completed. df1 22:42 William Lozoya PA is PHCP. cp 22:42 Arash Ferreira MD is Attending Physician. cp 23:00 Patient has correct armband on for positive identification. Placed in gown. Bed in low sj1 position. Call light in reach. Side rails up X 1. 23:00 Arm band placed on right wrist. sj1 23:48 Blood Culture Adult (2) Sent. sj1 23:48 Procalcitonin Sent. sj1 23:48 Basic Metabolic Panel Sent. sj1 23:48 CBC with Automated Diff Sent. sj1 23:48 Liver (Hepatic) Function Sent. sj1 23:48 Lipase Sent. sj1 23:58 Basic Metabolic Panel Sent. sj1 23:58 CBC with Diff Sent. sj1 23:58 Hepatic Function Sent. sj1 23:58 Lipase Sent. sj1 23:59 Inserted saline lock: 18 gauge in right antecubital area, using aseptic technique. sj1 Blood collected. 08/04 02:19 Real Albrecht MD is Referral Physician. cp 02:31 Dressings: non-adherent dressing. sj1 02:51 No provider procedures requiring assistance completed. IV discontinued, intact, sj1 bleeding controlled, No redness/swelling at site. Administered Medications: 08/03 23:47 Drug: Clindamycin 900 mg Route: IVPB; Infused Over: 30 mins; Site: right antecubital; sj1 23:47 Drug: Marcaine (bupivacaine) (0.5 %) 10 ml {Note: administered by provider.} Volume: 10 sj1 ml; Route: Infiltration; :47 Drug: NS 0.9% 500 ml Route: IV; Rate: 500 ml/hr; Site: right antecubital; sj1 23:58 Drug: Lidocaine (1 %) 10 ml {Note: administered by provider.} Volume: 20 ml; Route: sj1 Infiltration; 08/04 02:26 Drug: Bactrim (trimethoprim-sulfamethoxazole) (160 mg-800 mg (DS) 2 tablet Route: PO; sj1 02:32 Follow up: Response: Medication administered at discharge. sj1 Outcome: 02:20 Discharge ordered by . cp 02:51 Discharged to home ambulatory. sj1 02:51 Condition: stable 02:51 Discharge instructions given to patient, Instructed on discharge instructions, follow up and referral plans. medication usage, Demonstrated understanding of instructions, follow-up care, medications, Prescriptions given X 3. 02:53 Patient left the ED. sj1 Signatures: William Lozoya PA PA Jazmin Dickinson Dawn df1 Destini Acevedo, RN RN sj1
--- NOTE | 2021-08-04 02:21 | EDPHYS ---
Physician Documentation [facility] Name: Esvin Díaz Age: 71 yrs Sex: Male : 1950 Arrival Date: 08/03/2021 Time: 22:12 Bed 18 Private MD: ED Physician Arash Ferreira HPI: 08/03 23:30 This 71 yrs old Male presents to ER via Ambulatory with complaints of Boil. cp 23:30 The patient presents with swelling, of the right side of scrotum. cp 23:30 Onset: The symptoms/episode began/occurred 3 day(s) ago. cp 23:30 Associated signs and symptoms: Pertinent negatives: abdominal pain, fever, vomiting. cp Severity of symptoms: in the emergency department the symptoms are unchanged, despite home interventions. Patient reports swelling to right side of scrotum for past 3 days. Concerned about possible abscess. Denies drainage from srotum. Historical: - Allergies: 22:23 Isosorbide Mononitrate (unrinary retention); df1 - Home Meds: 22:23 BREO daily daily [Active]; allopurinol 100 mg Oral tab 1 tab once daily [Active]; df1 montelukast 10 mg Oral tab 1 tab once daily [Active]; levocetirizine 5 mg Oral tab 1 tab once daily [Active]; finasteride 5 mg Oral tab 1 tab once daily [Active]; - PMHx: 22:23 BPH; Hypertension; COPD; Rheumatoid Arthritis; df1 - PSHx: 22:23 TURP; df1 - Immunization history:: Adult Immunizations up to date, Client reports receiving the 2nd dose of the Covid vaccine. - Social history:: Smoking status: Patient denies any tobacco usage or history of. Patient/guardian denies using alcohol, street drugs, IV drugs. ROS: 23:35 Constitutional: Negative for body aches, chills, fever, poor PO intake. cp 23:35 Eyes: Negative for injury, pain, redness, and discharge. cp 23:35 Respiratory: Negative for shortness of breath. 23:35 Abdomen/GI: Negative for abdominal pain, nausea, vomiting, and diarrhea. 23:35 : Positive for swelling of right side scrotum, Negative for urinary symptoms. 23:35 All other systems are negative. Exam: 23:40 Constitutional: The patient appears in no acute distress, alert, awake, non-toxic, well cp developed, well nourished, obese. 23:40 Head/Face: Normocephalic, atraumatic. cp 23:40 Chest/axilla: Inspection: normal. 23:40 Cardiovascular: Rate: normal. 23:40 Respiratory: the patient does not display signs of respiratory distress, Respirations: normal, no use of accessory muscles, no retractions, labored breathing, is not present. 23:40 Abdomen/GI: Inspection: abdomen appears normal, Palpation: abdomen is soft and non-tender, in all quadrants. 23:40 : Male external genitalia: erythema, swelling, of the right side scrotum is noted, that is mild. Vital Signs: 22:21 BP 143 / 82; Pulse 91; Resp 18; Temp 99.1; Pulse Ox 100% on R/A; Weight 119.29 kg; df1 Height 5 ft. 9 in. (175.26 cm); Pain 8/10; 08/04 02:19 BP 112 / 57 LA Sitting (auto/reg); Pulse 75; Resp 16 S; Temp 99.2(O); Pulse Ox 94% on sj1 R/A; Pain 0/10; 08/03 22:21 Body Mass Index 38.84 (119.29 kg, 175.26 cm) df1 MDM: 08/03 22:45 Patient medically screened. cp 08/04 00:00 Differential diagnosis: abscess, cellulitis, Mehnaz's Gangrene. cp 02:20 Data reviewed: vital signs, nurses notes, lab test result(s), and as a result, I will cp discharge patient. 02:20 Counseling: I had a detailed discussion with the patient and/or guardian regarding: the cp historical points, exam findings, and any diagnostic results supporting the discharge/admit diagnosis, lab results, the need for outpatient follow up, a urologist, to return to the emergency department if symptoms worsen or persist or if there are any questions or concerns that arise at home. Response to treatment: the patient's symptoms have mildly improved after treatment. ED course: Area aspirated with no return of purulent drainage. IV antibiotics given and will discharge to home for continued monitoring. 08/03 23:20 Order name: Basic Metabolic Panel cp 08/03 23:20 Order name: CBC with Diff cp 08/03 23:20 Order name: Hepatic Function cp 08/03 23:20 Order name: Lipase cp 08/03 23:20 Order name: Procalcitonin cp 08/03 23:20 Order name: Blood Culture Adult (2) cp 08/03 23:20 Order name: Basic Metabolic Panel; Complete Time: 01:16 EDMS 08/03 23:20 Order name: CBC with Automated Diff; Complete Time: 01:16 EDMS 08/04 01:16 Interpretation: Normal except: WBC 13.10; LYM% 14.6; BASO% 1.4; NEUT A 9.1; MNA 1.5. cp 08/03 23:21 Order name: Liver (Hepatic) Function; Complete Time: 01:16 EDMS 08/04 01:16 Interpretation: Normal except: AST 14; BILIT 1.2; BILID 0.3; TP 8.9; A/G 0.6. cp 08/03 23:21 Order name: Lipase; Complete Time: 01:16 EDMS 08/03 23:20 Order name: IV Saline Lock; Complete Time: 23:48 cp 08/03 23:20 Order name: Labs collected and sent; Complete Time: 23:48 cp 08/03 23:20 Order name: I\T\D Setup; Complete Time: 23:48 cp Administered Medications: 08/03 23:47 Drug: Clindamycin 900 mg Route: IVPB; Infused Over: 30 mins; Site: right antecubital; sj1 23:47 Drug: Marcaine (bupivacaine) (0.5 %) 10 ml {Note: administered by provider.} Volume: 10 sj1 ml; Route: Infiltration; 23:47 Drug: NS 0.9% 500 ml Route: IV; Rate: 500 ml/hr; Site: right antecubital; sj1 23:58 Drug: Lidocaine (1 %) 10 ml {Note: administered by provider.} Volume: 20 ml; Route: sj1 Infiltration; 08/04 02:26 Drug: Bactrim (trimethoprim-sulfamethoxazole) (160 mg-800 mg (DS) 2 tablet Route: PO; sj1 02:32 Follow up: Response: Medication administered at discharge. sj1 Disposition: 21:37 Co-signature as Attending Physician, Arash Ferreira MD. 7 Disposition Summary: 08/04/21 02:20 Discharge Ordered Location: Home cp Problem: new cp Symptoms: have improved cp Condition: Stable cp Diagnosis - Cellulitis of other sites - right scrotum cp Followup: cp - With: Real Albrecht MD - When: 2 - 3 days - Reason: Recheck today's complaints Discharge Instructions: - Discharge Summary Sheet cp - Cellulitis, Adult cp Forms: - Medication Reconciliation Form cp - Thank You Letter cp - Antibiotic Education cp - Prescription Opioid Use cp Prescriptions: - Clindamycin HCl 300 mg Oral Capsule - take 1 capsule by ORAL route every 6 hours for 10 days; 40 capsule; Refills: 0, cp Product Selection Permitted - Bactrim DS 800-160 mg Oral Tablet - take 1 tablet by ORAL route every 12 hours for 10 days; 20 tablet; Refills: 0, cp Product Selection Permitted - Naprosyn 500 mg Oral Tablet - take 1 tablet by ORAL route 2 times per day take with food; 30 tablet; Refills: cp 0, Product Selection Permitted Signatures: Dispatcher [employer] EDMS William Lozoya PA PA cp Arash Ferreira MD MD [id number] Macy Montes df1 Destini Acevedo RN RN sj1 Corrections: (The following items were deleted from the chart) 01:16 01:16 Normal except: AST 14; BILIT 1.2; BILID 0.3; TP 8.9. cp cp 01:58 10 23:21 Wound Culture+[id number].LAB.BRZ ordered. EDMS EDMS
[2021-08-04] MEDS ORDERED: SMZ./TMP. 800/160 MG TABLET ONE (02:50)
[2021-08-04 03:00] VITALS: BP 112/57; TEMP 99.2; O2SAT 94
== END 2021-08-04 02:53 | disposition home or self-care (01) ==
LOC: ER 22:10
DX: L03.818 Cellulitis of other sites (principal); I10 Essential (primary) hypertension; Z91.018 Allergy to other foods
CPT/HCPCS: 87040 ×2; 85025; 80048; 36415; 80076; 83690; 84145; 96374; 99284; J7040

== ENCOUNTER 2022-10-01 06:13 | Inpatient (IN) | payer OTHER ==
[2022-09-17 11:13] LABS: Absolute Lymphocytes (CBC) 1.4 K/uL (0.7-4.9); Hematocrit 44.4 % (39.6-49.0); Lymphocytes % 18.4 % (15.3-44.8); MCV 88.7 fL (80-100); MPV 7.3 fL (7.6-11.3); RBC Red Blood Cell Count 5.01 M/uL (4.33-5.43)
[2022-09-17 11:14] LABS: Protime INR 1.11
--- NOTE | 2022-09-17 12:20 | RAD REPORT ---
EXAM DESCRIPTION: RAD - Chest Pa And Lat (2 Views) - 09/17/2022 12:02 pm CLINICAL HISTORY: Pre op pending TURP Chest pain. COMPARISON: Chest Single View dated 07/10/2019; Chest Pa And Lat (2 Views) dated 11/20/2017; Chest Sing le View dated 09/20/2017; Chest Single View dated 09/15/2017 FINDINGS: The lungs are clear. The heart is mildly enlarged. No displaced fractures. Small hiatal he rnia.
--- NOTE | 2022-09-18 19:03 | EKG ---
Test Date: 2022-09-17 Test Time: 10:52:28 Saw Filer: [place] MEASUREMENT RESULTS: Intervals: Rate: 73 RI: 166 QRSD: 86 QT: 384 QTc: 423 [place]: P: 47 RI: 166 QRS: 39 T: 53 INTERPRETIVE STATEMENTS: Normal sinus rhythm Nonspecific ST and T wave abnormality Abnormal ECG Compared to ECG 11/20/2017 14:52:53 ST (T wave) deviation now present Electronically Signed On 09-18-22 19:00:39 [employer]IC[employer] by Kenny Corey
[2022-10-01] MEDS ORDERED: AMPICILLIN SODIUM 2 GM/VIAL VIAL ONE (06:33)
[2022-10-01] MEDS ORDERED: Ringers Lactate 1,000 ML IV ONE (06:33)
[2022-10-01] MEDS ORDERED: Gentamicin Inj 240 MG in NA CHLORIDE 0.9% 100 ML IV SCH (07:00)
[2022-10-01] MEDS ORDERED: ONDANSETRON 4 MG/2 ML VIAL ONE (07:16)
[2022-10-01] MEDS ORDERED: LIDOCAINE 1% MPF 5 ML VIAL ONE (07:16)
[2022-10-01] MEDS ORDERED: FENTANYL CITR 100 MCG/2 ML ONE (07:16)
[2022-10-01] MEDS ORDERED: ROCURONIUM 50 MG/5 ML VIAL IV ONE ×2 (07:16→08:50)
[2022-10-01] MEDS ORDERED: MIDAZOLAM HCL 2 MG/2 ML INJ ONE (07:16)
[2022-10-01] MEDS ORDERED: propofoL 200 MG/20 ML VIAL IV ONE (07:16)
[2022-10-01] MEDS ORDERED: dexAMETHasone 10 MG/ML VIAL ONE (07:54)
[2022-10-01] MEDS: OPIUM/BELLADONNA SUPPOS (30-16.2 MG) PR ONE ×3 (08:53→10:19)
[2022-10-01] MEDS ORDERED: SUGAMMADEX SODIUM 200 MG/2 ML VIAL IV ONE (08:53)
[2022-10-01] MEDS ORDERED: ALBUTEROL 2.5 MG/3 ML NEB SOL ONE ×2 (10:39→11:25)
[2022-10-01] MEDS ORDERED: CODEINE 30MG/APAP 300MG TAB PO PRN ×2 (11:24→17:06)
--- NOTE | 2022-10-01 11:51 | RAD REPORT ---
EXAM DESCRIPTION: RAD - Chest Single View - 10/01/2022 11:40 am CLINICAL HISTORY: SOB DESAT COMPARISON: Portable 09/17/2022 TECHNIQUE: AP portable chest image was obtained 10/01/2022 11:40 am . FINDINGS: Lung volumes are reduced compared to the prior study. No pulmonary edema, failure or volum e overload findings suspected. No focal lung parenchymal finding to suspect aspiration. Cardiomediastinal silhouette is accentuated by shallow inspiration portable imaging. No significant c hange from the comparison study. No measurable pleural effusion and no pneumothorax. No acute bony abnormality seen. No acute aortic findings suspected. IMPRESSION: No acute cardiopulmonary process.
[2022-10-01 15:45] LABS: SARS-CoV-2 Antigen Rapid Res Negative (Negative)
[2022-10-01] MEDS ORDERED: ACETAMINOPHEN 500 MG TAB PO PRN (16:06)
[2022-10-01] MEDS ORDERED: ONDANSETRON 4 MG/2 ML VIAL IV PRN (16:06)
[2022-10-01] MEDS ORDERED: MORPHINE 2 MG/ML SYR IV PRN (16:06)
--- OUTSIDE RECORDS SUMMARY | 2022-10-01 16:53 | XMS REPORT | Continuity of Care Document ---
:1950 Author Organization [facility] t Address [address] [place] [address] Care Team Providers Name Role Phone Taurus Rojo Attending Clinician Unavailable Colleen Li Attending Clinician Unavailable Payers Payer Name Policy Type Policy Number Effective Date Expiration Date S bhupendra AETNA 53 [id number] [facility] Problems Condition Condition Condition Status Onset Resolution Last Treating Co mments Source Name Details Category Date Date Treatment Clinician Date MONOCLOMAL MONOCLOMA Diagnosis Active 2018-11-26 Memoria GAMMOPATHY L 11-25 09:33:00 l GAMMOPATHY 00:00: Chang n Active 00 11/25/2018 [facility] Anemia, Anemia, Problem 2019-06-16 Me moria unspecifie unspecifie 11:47:17 l d d Chris 06/16/2019 [place] MONOCLONAL Diagnosis Active 2018-11-26 Memoria GAMMOPATHY MONOCLONAL 09:33:00 l GAMMOPATHY Chang n Active 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 Sp héctor [facility] [id number] Nodular Problem Comm on prostate [facility] [id number] BPH loc w Problem Com mon urin Spirit obs/LUTS [facility] [id number] Bladder Problem Common calculi [facility] [id number] Gross Problem Common hematuria [facility] Rheumatoid Rheumatoid Problem C ommon arthritis arthritis, Spi rit unspecifie - [facility] [id number] Family Problem Common history of [facility] prostate [facility] cancer [facility] [id number] Family Problem Common history of [facility] kidney [facility] cancer [facility] History of Past Illness Condition Condition Condition Status Onset Resolution Last Treating Co mments Source Name Details Category Date Date Treatment Clinician Date Monoclonal Monoclona Problem 2019-0 2019-06-16 2019-06-16 Memoria gammopathy l 12-03 11:47:17 11:47:17 l gammopathy 04:58: Chang n 12/03/2018 27 06/16/2019 [facility] Allergies, Adverse Reactions, Alerts This patient has no known allergies or adverse reactions. Social History Social Habit Start Date Stop Date Quantity Comments Source History of Tobacco Use Co mmon [facility] Sex Assigned At Com mon [facility] Smoking Status Start Date Stop Date Source Social History [facility] Medications Ordered Filled Start Stop Current Ordering Indication Dosage Frequency Signature Comments Components Source Medication Medication Date Date Medication? Clinician (SIG) Name Name Tamsulosin Tamsulosin 2021-11- No 1{capsu QD Tamsulosin HCl 0.4 MG HCl 0.4 MG 008-03 le} HCl 0.4 MG 00:00: 00:00 00 :00 Tamsulosin Tamsulosin 2021-11- No 1{capsu QD Tamsulosin HCl 0.4 MG HCl 0.4 MG 0-08-03 le} HCl 0.4 MG 00:00: 00:00 00 :00 Tamsulosin Tamsulosin 2021-11- No 1{capsu QD Tamsulosin HCl 0.4 MG HCl 0.4 MG 008-03 le} HCl 0.4 MG 00:00: 00:00 00 :00 Citracal + 2019-0 Yes 2 tab, Memor ia D 250 1-24 CHEW, l mg-500 intl 16:15: Daily, 0 He rmann units oral 00 Refill(s) tablet, chewable losartan 50 2019-0 Yes 50 mg = 1 M emoria mg oral 1-24 tab, PO, l tablet 16:15: Daily, # Chris 00 90 tab, 1 Refill(s) Advair 2019-0 Yes 1 puff, Memoria Diskus 250 1-24 INHALATION l mcg-50 mcg 16:15: , Daily, 0 H ermann inhalation 00 Refill(s) powder Levocetiriz Levocetiriz No Levocetiri ine-Loratad ine-Loratad zine-Lorat ine ine adine Breo Breo No 1{puff} QD Breo Ellipta Ellipta Ellipta 100-25 100-25 100-25 MCG/INH MCG/INH MCG/INH Atorvastati Atorvastati No 1{table QD Atorvastat n Calcium n Calcium t} in Calcium 10 MG 10 MG 10 MG Allopurinol Allopurinol No 1{table QD Allopurino 100 MG 100 MG t} l 100 MG Montelukast Montelukast No 1{table QD Montelukas Sodium 10 Sodium 10 t} t Sodium MG MG 10 MG Levocetiriz Levocetiriz No Levocetiri ine-Loratad ine-Loratad zine-Lorat ine ine adine Breo Breo No 1{puff} QD Breo Ellipta Ellipta Ellipta 100-25 100-25 100-25 MCG/INH MCG/INH MCG/INH Atorvastati Atorvastati No 1{table QD Atorvastat n Calcium n Calcium t} in Calcium 10 MG 10 MG 10 MG Allopurinol Allopurinol No 1{table QD Allopurino 100 MG 100 MG t} l 100 MG Montelukast Montelukast No 1{table QD Montelukas Sodium 10 Sodium 10 t} t Sodium MG MG 10 MG Allopurinol Allopurinol No 1{table QD Allopurino 100 MG 100 MG t} l 100 MG Levocetiriz Levocetiriz No Levocetiri ine-Loratad ine-Loratad zine-Lorat ine ine adine Atorvastati Atorvastati No 1{table QD Atorvastat n Calcium n Calcium t} in Calcium 10 MG 10 MG 10 MG Breo Breo No 1{puff} QD Breo Ellipta Ellipta Ellipta 100-25 100-25 100-25 MCG/INH MCG/INH MCG/INH Montelukast Montelukast No 1{table QD Montelukas Sodium 10 Sodium 10 t} t Sodium MG MG 10 MG Finasteride Finasteride No 1{table QD Finasterid 5 MG 5 MG 08-03 t} e 5 MG 00:00 :00 Finasteride Finasteride No 1{table QD Finasterid 5 MG 5 MG 08-03 t} e 5 MG 00:00 :00 Finasteride Finasteride No 1{table QD Finasterid 5 MG 5 MG 08-03 t} e 5 MG 00:00 :00 Vital Signs Vital Name Observation Time Observation Value Comments Source height 2022-08-29 17:45:00 69 [in_i] Common [facility] weight 2022-08-29 17:45:00 263 [lb_av] [facility] temperature 2022-08-29 17:45:00 98.6 [degF] [facility] bmi 2022-08-29 17:45:00 38.83 kg/m2 [facility] oximetry 2022-08-29 17:45:00 96 % [facility] respiratory rate 2022-08-29 17:45:00 18 /min Comm on [facility] blood pressure 2022-08-29 17:45:00 149 mm[Hg] Common [facility] - systolic [facility] blood pressure 2022-08-29 17:45:00 72 mm[Hg] Common [facility] - diastolic [facility] height 2022-08-08 11:00:00 69 [in_i] Common [facility] weight 2022-08-08 11:00:00 260 [lb_av] [facility] temperature 2022-08-08 11:00:00 98.0 [degF] [facility] bmi 2022-08-08 11:00:00 38.39 kg/m2 [facility] oximetry 2022-08-08 11:00:00 90 % [facility] blood pressure 2022-08-08 11:00:00 142 mm[Hg] Common [facility] - systolic [facility] blood pressure 2022-08-08 11:00:00 86 mm[Hg] Common [facility] - diastolic [facility] BMI Calculated 2018-11-26 16:11:00 Felix Mims Weight 2018-11-26 16:11:00 Diego Perez Height 2018-11-26 16:11:[address] [facility] Procedures Procedure Date / Time Performed Performing Clinician [facility] e Magnetic resonance (eg, 2015-09-21 06:00:00 Asim Perez proton) imaging, upper extremity, other than joint; without contrast material(s) Ankle reconstruction [facility] rmemory Knee replacement [facility] Chang n ORIF - Open reduction and Felix Mims internal fixation of fracture<sup>1</sup> Prostate manipulation [facility] Encounters Start End Encounter Admission Attending Care Care Encounter Source Date/Time Date/Time Type Type Clinicians Facility Department ID 2022-09-16 Outpatient Alia, STLMLC STLMLC [id number] Common 10:52:04 Taurus [facility] 2022-08-29 Outpatient Alia, STLMLC STLMLC [id number] Common 17:23:01 Taurus [facility] 2022-08-08 Outpatient Alia, STLMLC STLMLC [id number] Common 10:40:03 Taurus [facility] 2022-08-29 2022-08-29 OFFICE STLMLC STLMLC [id number] Co mmon 00:00:00 00:00:00 VISIT Spirit ESTAB PT - CHI LEVEL 4 [facility] 2022-08-11 2022-08-11 (TEL) STLMLC STLMLC [id number] Co mmon 00:00:00 00:00:00 Spirit [facility] 2022-08-08 2022-08-08 OFFICE STLMLC STLMLC [id number] Co mmon 00:00:00 00:00:00 VISIT Spirit ESTAB PT - CHI LEVEL 5 [facility] 2018-11-26 2018-11-27 Outpatient nullFlavo [facility] [id number] Memoria 15:24:00 05:59:00 guadalupe Perez 00 l [facility] 2018-11-26 2018-11-26 Outpatient Guillermo [facility] [id number] 09:24:00 23:59:00 Colleen 00 [facility] 2018-11-26 2018-11-26 Outpatient Guillermo ADAM [facility] [id number] 09:24:00 23:59:00 Colleen 00 [facility] 2015-09-21 2015-09-21 Outpatient nullFlavo [facility] [id number] Memoria 14:41:37 23:59:59 r carlos [facility] 2015-09-21 2015-09-21 Outpatient [id number] Memoria 14:41:37 23:59:59 [id number] l [id number] 81.2000 Chang n 00 [facility] Results Test Description Test Time Test Comments Results Result Comments Source REFERENCE LAB RESULTS 2018-11-27 16:51:00 Test Item Value Reference Range Interpretation Comme nts Test Name (test code = Test Name) FISH-MM [facility]NR[facility]ED [facility] [id number] 16:51:00 Test Item Value Reference Range Interpretation Comments Misc Lab (test code Reference lab results = Misc Lab) scanned in [employer]. Results displayed in Xvwjuzf-Hur-VPATIDMQO LAB-Outside Lab Documents (Imaged) under date/time results were scanned. Report sent for scanning on 12/08/2018 10:57_. GENOPTIX REPORT [facility]edhfcxVZCHIFTLYF4789[facility]48-27 16:12:00 Test Item Value Reference Range Interpretation Comments Monocytes (test code = Monocytes) 12.0 2.0-12.0 [facility] NorthwestPrdqodoEYLHOWIPUM0324-97-74 16:12:00 Test Item Value Reference Range Interpretation Comments Plt Morph (test code = Normal (11/26/18 10:12 Plt Morph) AM) [facility] Northwe[id number] 16:12:00 Test Item Value Reference Range Interpretation Comments RBC Morph (test code = Normal (11/26/18 10:12 RBC Morph) AM) [facility] Northwe[id number] 16:12:00 Test Item Value Reference Range Interpretation Comments Hgb (test code = Hgb) 13.9 14.0-18.0 [facility] NorthwestQgwaqswJDDBJAXZKL8940-53-09 16:12:00 Test Item Value Reference Range Interpretation Comments RBC (test code = RBC) 4.59 4.70-6.10 [facility] NorthwestDhtyrspNNGWREXOLY3060-14-72 16:12:00 Test Item Value Reference Range Interpretation Comments WBC (test code = WBC) 9.4 3.7-10.4 [facility] NorthwestZkspyviPGZENTPIEH2780-30-67 16:12:00 Test Item Value Reference Range Interpretation Comments MPV (test code = MPV) 7.3 7.4-10.4 [facility] NorthwestXstfzryBAASUODKUZ7450-05-23 16:12:00 Test Item Value Reference Range Interpretation Comments Platelet (test code = Platelet) 342 133-450 [facility] NorthwestXeaqqnzOCLRBMHQML3423-63-57 16:12:00 Test Item Value Reference Range Interpretation Comments MCH (test code = MCH) 30.2 pg 27.0-31.0 [facility] NorthwestAukoszxZTWUPALPBZ5603-32-91 16:12:00 Test Item Value Reference Range Interpretation Comments MCV (test code = MCV) 86.9 80.0-94.0 [facility] NorthwestXaoraiyJPUZOMMFIC4781-86-13 16:12:00 Test Item Value Reference Range Interpretation Comments RDW (test code = RDW) 13.9 11.5-14.5 [facility] NorthwestQnqbvaqCXNOCDPLEA5531-21-16 16:12:00 Test Item Value Reference Range Interpretation Comments MCHC (test code = MCHC) 34.8 32.0-36.0 [facility] NorthwestYaglhttBLQDAZOJLJ7162-63-55 16:12:00 Test Item Value Reference Range Interpretation Comments Hct (test code = Hct) 39.9 42.0-54.0 [facility] NorthwestEzhedtxCQECERZSAY6718-76-16 16:12:00 Test Item Value Reference Range Interpretation Comments Retic Auto (test code = Retic Auto) 1.1 0.5-1.5 [facility] NorthwestPqbvljkJSXWAKTKZZ4425-44-42 16:12:00 Test Item Value Reference Range Interpretation Comments Neutrophils # (test code = Neutrophils 6.0 1.5-8.1 #) [facility] NorthwestHazybthPCSRWHFZOX8090-14-99 16:12:00 Test Item Value Reference Range Interpretation Comments Monocytes # (test code 1.1 See_Comment [Aut omated message] The = Monocytes #) system which generated this result tra nsmitted reference range : <=0.8. The reference r sapna was not used to int erpret this result as normal/abnormal . [facility] NorthwestGmiqqvtAQNJAXUSGQ2673-66-94 16:12:00 Test Item Value Reference Range Interpretation Comments Basophils (test code = 0.0 See_Comment [Aut omated message] The Basophils) system which ge nerated this result tra nsmitted reference range : <=1.0. The reference r sapna was not used to int erpret this result as normal/abnormal . [facility] NorthwestBdlghwlXUAHANPQXM9007-34-10 16:12:00 Test Item Value Reference Range Interpretation Comments Eosinophils (test code = 2.0 See_Comment [A utomated message] The Eosinophils) system which ge nerated this result tra nsmitted reference range : <=4.0. The reference r sapna was not used to int erpret this result as normal/abnormal . [facility] NorthwestH[id number] 16:12:00 Test Item Value Reference Range Interpretation Comments Tot Cell Ct (test code = Tot Cell Ct) 100 1 [facility] NorthwestBxndvydSLEYCJDGWZ2516-95-54 16:12:00 Test Item Value Reference Range Interpretation Comments Eosinophils # (test code 0.2 See_Comment [A utomated message] The = Eosinophils #) system [facility] h generated this result tra nsmitted reference range : <=0.5. The reference r sapna was not used to int erpret this result as normal/abnormal . [facility] NorthwestUarisbeSWYLXMJNVR2564-33-67 16:12:00 Test Item Value Reference Range Interpretation Comments Lymphocytes # (test code = Lymphocytes 2.1 1.0-5.5 #) [facility] Northwe[id number] 16:12:00 Test Item Value Reference Range Interpretation Comments Basophils # (test code 0.0 See_Comment [Aut omated message] The = Basophils #) system which generated this result tra nsmitted reference range : <=0.2. The reference r sapna was not used to int erpret this result as normal/abnormal . [facility] NorthwestAdycdsgCIAFAUFJLU6481-46-18 16:12:00 Test Item Value Reference Range Interpretation Comments Lymphocytes (test code = Lymphocytes) 22.0 20.0-40.0 [facility] Northwe[id number] 16:12:00 Test Item Value Reference Range Interpretation Comments Segs (test code = Segs) 64.0 45.0-75.0 [facility]
[2022-10-01] MEDS: NA CHLORIDE 0.9% 1,000 ML IV SCH (17:00)
[2022-10-01 18:14] VITALS: BMI 38.8
[2022-10-01] MEDS: ALBUTEROL 2.5 MG/3 ML NEB SOL NEB SCH (19:25)
[2022-10-01] MEDS: IPRATROPIUM BROM 0.5MG/2.5ML NEB SCH (19:25)
--- NOTE | 2022-10-01 21:02 | OP ---
Surgeon: EMILY MCKAY Preoperative Diagnoses: 1. BPH with lower urinary tract obstruction and symptoms. 2. Bladder calculi, 2 of them, 0.5-1 cm each. Postoperative Diagnoses: 1. BPH with lower urinary tract obstruction and symptoms. 2. Bladder calculi, 2 of them, 0.5-1 cm each. Principal Procedures: 1. Bipolar transurethral resection of the prostate. 2. Removal of foreign body/bladder stones. Indication For Procedure: Mr. Díaz is a 72-year-old gentleman with history of asthma, COPD, who presented to the Urology Clinic with persistent bothersome LUTS and gross hematuria. He underwent evaluation, which revealed the presence of 2 bladder calculi in association with massive intravesically projecting prostate tissue with lateral lobar hypertrophy and an extended prostatic urethral length. He was status post prior TURP by Dr. Moreno several years ago and I counseled the patient on the need to manage the bladder calculi, but also to remove the residual obstruction causing his symptoms. Procedure In Detail: The patient was consented in the preoperative holding area before being transferred to the operative suite where general anesthesia was induced. He was given ampicillin 2 g and gentamicin 2-3 mg/kg IV antimicrobial prophylaxis. Pneumo boots were provided for DVT prophylaxis. He was placed in the lithotomy position, padded and secured to the table appropriately. His genitalia were prepped with Hibiclens and he was draped in standard fashion. The case was begun using urethral sounds to dilate the meatus and fossa navicularis to 28-Spanish. Then, using the 26-Spanish resectoscope sheath with a visual obturator, I was able to navigate via the urethra and with great difficulty due to an excessively elevated bladder neck with intraluminal projection of prostate tissue extending from the left posterolateral surface of his prostate, I was able to just barely get the tip of the scope into his bladder lumen. His urine was somewhat cloudy from heme upon initial injury, but after decompressing his bladder and refilling it, I was able to visualize 1 of the 2 stones previously seen cystoscopically in the clinic. Because I was unable to manipulate the scope due to the significant urethral length and would have limited mobility to address the stones using a laser, also given the persistent slight degree of gross hematuria, making visualization difficult, I was unable to proceed with holmium laser cystolitholapaxy and instead proceeded directly to bipolar TURP with plans to return at the end and remove the bladder stones using the laser, where necessary. As a result, I employed the thick loop of large loop for the bipolar resectoscope to began resecting the intravesical projecting component of the median lobe that was obstructing at the level of the bladder neck. Once this was largely resected and some fulguration of bleeders had taken place, I was able to identify the ureteral orifices in the trigone proximal to this intravesically projecting tissue. I then continued the resection of this median bar into the mid prostatic urethra. Again, his prostatic urethral length was likely 6-7 cm. Because the lateral lobar tissue was obstructing the flow of irrigant fluid, I then had to resect more of the left lateral lobe at the bladder neck and extended this into the anterior overhanging lobar tissue. I continued resection of the left lateral lobe from the midportion of the prostate down to the apex of the prostate. I then turned my attention to the right side of the prostate where a similar resection was performed starting at the bladder neck and extending to the apex of the prostate. Once the channel was somewhat opened and I was able to irrigate more freely, with his bladder decompressed, I then continued the resection of the prostatic urethral tissue within the mid apical region until the overlapping lateral lobar tissues there were no longer overlapping and just approximating each other in the midline. The verumontanum was left intact as a marker for the extent of the apical resection and I resected any and all intervening tissue between the bladder neck to the apex of the prostate as well as the anterior zone of the prostate until a nice open channel had been created. Extensive resection was required, approximately 2.5 hours of it, in order to achieve a nice open channel and remove all prostatic chips from within. I then carefully fulgurated the entirety of his prostatic urethra and ensured no active arterial bleeding was ongoing. Again, with his bladder decompressed, I again fulgurated any venous bleeders. Once completely hemostatic and with no prostate chips remnant within the bladder, I confirmed the ureteral orifices were also intact. At this point, I then surveyed the bladder planning to turn my attention to the laser cystolitholapaxy. With the irrigant fluid off and with his bladder decompressing, the previously observed stones were no longer observed. I thus decompressed his bladder completely and observed for any stones before refilling the bladder slowly. The stones were no longer visible within his bladder lumen suggesting they had been successfully removed during 1 of the multiple Ellik evacuation events. As a result, I refilled his bladder wall fulgurating any bleeders seen at the bladder neck and ensure the remainder of the prostatic fossa was hemostatic before removing the resectoscope. I then passed a 24- Spanish 3-way Ramirez catheter into his bladder with ease and placed about 40 cc of sterile water in the balloon. The catheter was placed moderate traction, and the patient was taken out of the lithotomy position. He was awakened from general anesthesia before being transferred to a stretcher and then transferred to the recovery room in good condition. Complications: None. Discharge Disposition: He should follow up in the Urology Clinic on Friday for a voiding trial. He may very well require a prescription for oxybutynin given evidence of detrusor overactivity and diminished compliance observed intraoperatively. PAM/BLAISE Voice ID: [id number] Report ID: [id number]
[2022-10-02] MEDS: IPRATROPIUM BROM 0.5MG/2.5ML NEB SCH ×4 (00:25→20:10)
[2022-10-02] MEDS: ALBUTEROL 2.5 MG/3 ML NEB SOL NEB SCH ×4 (00:25→20:10)
[2022-10-02 05:47] LABS: Absolute Lymphocytes (CBC) 0.9 K/uL (0.7-4.9); Hematocrit 39.8 % (39.6-49.0); Lymphocytes % 6.3 % (15.3-44.8); MCV 89.2 fL (80-100); MPV 7.5 fL (7.6-11.3); RBC Red Blood Cell Count 4.46 M/uL (4.33-5.43)
[2022-10-02 05:52] LABS: Protime INR 1.15
[2022-10-02 06:02] LABS: Albumin 2.8 g/dL (3.4-5.0); Bilirubin Total 0.6 mg/dL (0.2-1.0); Potassium 4.7 mmol/L (3.5-5.1); Protein, Total 7.3 g/dL (6.4-8.2)
[2022-10-02] MEDS: NA CHLORIDE 0.9% 1,000 ML IV SCH (06:03)
--- NOTE | 2022-10-02 08:16 | P.CNS ---
Date of Consult: 10/01/22 Reason for Consult: Assistance with medical management/hypoxemia Requesting Physician: Real Albrecht Primary Care Provider: Dr. Rojo Chief Complaint: Admitted for bipolar TURP History of Present Illness: Patient is a 72-year-old gentleman who has a history of BPH and renal calculi. Patient also has a history of rheumatoid arthritis, LUZ (does not wear his CPAP because his does not like the sound of it according to the patient), and COPD. Patient was taken to the operating room and had bipolar transurethral resection of his prostate along with removal of bladder stones. Patient had been under anesthesia for a while and when he came out of it he was hypoxic. He was placed on oxygen. Initially he was on a nonrebreather and then a Ventimask. Currently he is on 2 L and we removed it and he is satting 93 to 95%. He looks very comfortable and he has no complaints of chest pain, no shortness of breath, no diaphoresis, no fever, no cough or congestion. Chest x-ray is pending. We will order CPAP for tonight and we will see how he does overnight. Allergies isosorbide Adverse Reaction (Verified 10/01/22 07:03) URINARY RETENTION Home Medications: Finasteride [Proscar*] 5 mg PO DAILY 12/08/16 Tamsulosin [Flomax*] 0.4 mg PO BEDTIME #30 cap 12/10/16 Allopurinol 100 mg PO DAILY 09/17/22 Diosmin Complex No.1 [Vasculera] 630 mg PO DAILY 09/17/22 Fluticasone/Vilanterol [Breo Ellipta 200-25 Mcg INH] 1 puff IH DAILY 09/17/22 Levocetirizine Dihydrochloride [24Hr Allergy Relief] 5 mg PO DAILY 09/17/22 Turmeric Root/Adela Root Ext [Turmeric Curcumin-Adela Gummy] 2 each PO DAILY 09/17/22 Codeine/APAP [Tylenol W/Codeine #3 tab] 1 tab PO Q6HP PRN #12 tab 10/01/22 Oxybutynin Chloride [Ditropan Xl] 5 mg PO DAILY PRN #30 tab 10/01/22 Smz./Tmp. [Bactrim Ds 800 MG/160 MG] 1 tab PO BID #10 tab 10/01/22 - Past Medical/Surgical History Diabetic: No -: COPD -: BPH -: RA -: allergies -: HDL -: ANKLE AND KNEE LEFT LEG -: Lumbar Puncture - Family History Mother Medical History: Heart disease, Other (see notes) Notes: COPD, ARTHRITIS, OSTEOPEROSIS - Social History Smoking Status: Never smoker Alcohol use: No CD- Drugs: No Caffeine use: No Place of Residence: Home Review of Systems 10-point ROS is otherwise unremarkable Physical Examination Temp Pulse Resp BP Pulse Ox 97.5 F 66 16 130/61 92 10/02/22 04:00 10/02/22 04:00 10/02/22 04:00 10/02/22 04:00 10/02/22 04:00 General: Alert, In no apparent distress, Oriented x3 HEENT: Atraumatic, PERRLA, Mucous membr. moist/pink, EOMI, Sclerae nonicteric Neck: Supple, 2+ carotid pulse no bruit, No LAD, Without JVD or thyroid abnormality Respiratory: Clear to auscultation bilaterally, Normal air movement Cardiovascular: Regular rate/rhythm, Normal S1 S2 Gastrointestinal: Normal bowel sounds, Soft and benign, Non-distended, No tenderness Musculoskeletal: No clubbing, No swelling, No tenderness Integumentary: No rashes Neurological: Normal speech, Normal strength at 5/5 x4 extr, Normal tone, Sensation intact, Cranial nerves 3-12 intact, Normal affect Lymphatics: No axilla or inguinal lymphadenopathy Urinary: Ramirez catheter Laboratory Data (last 24 hrs) 10/02/22 05:36: Sodium 138, Potassium 4.7, BUN 22 H, Creatinine 0.91, Glucose 129 H, Total Bilirubin 0.6, AST 14 L, ALT 19, Alkaline Phosphatase 70 10/02/22 05:36: PT 12.6 H, INR 1.15, APTT 31.7 10/02/22 05:36: WBC 13.90 H, Hgb 13.3 L, Hct 39.8, Plt Count 254 - Problems (1) S/P TURP Current Visit: Yes Status: Acute (2) COPD (chronic obstructive pulmonary disease) Current Visit: Yes Status: Acute (3) LUZ (obstructive sleep apnea) Current Visit: Yes Status: Acute (4) Rheumatoid arthritis Current Visit: Yes Status: Acute (5) Bladder calculi Current Visit: Yes Status: Acute (6) Hypoxia Onset Date: 12/13/14 Current Visit: No Status: Acute Conclusions/ Impression: Plan: 1. Patient is hypoxic. This is resolved. We will go ahead and get a chest x- ray as he most likely had atelectasis postoperatively. Continue with O2 per protocol and will have him wear his CPAP tonight. If he is asymptomatic then we will continue to closely monitor him. 2. Continue with nebs and inhaler therapy for his COPD 3. He may have chronic hypoxemia and hypercapnia. He has a metabolic alkalosis which he has had on multiple occasions. He may be developing complications from his obstructive sleep apnea and not wearing his CPAP at night. We will reinforce the importance of wearing it 4. Surgical management by Dr. Albrecht 5. We will handoff patient to his PCP Dr. Rojo in AM. Critical Care: No Time Spent Managing Pts care (In Minutes): 40
[2022-10-02] MEDS: HOME MED 1 EA UNK (Fluticasone/Vilanterol [Breo Ellipta 200-25 Mcg Inh] Blst.W.Dev) IH SCH (09:00)
[2022-10-02] MEDS: DIOSMIN COMPLEX NO 1 PO SCH (09:00)
--- NOTE | 2022-10-02 09:01 | RAD REPORT ---
EXAM DESCRIPTION: CT - Chest For Pe Angio - 10/02/2022 8:36 am CLINICAL HISTORY: Hypoxia COMPARISON: 2017 TECHNIQUE: Dynamically enhanced axial 3 mm thick images of the chest were obtained during administra tion of <100> mL Isovue 370 IV contrast. Coronal and oblique reconstruction images were generated and reviewed. Exam utilizes a protocol for optimal evaluation of pulmonary arterial tree. Maximum intensity projections 3D imaging was utilized All CT scans are performed using dose optimization technique as appropriate and may include automated exposure control or mA/KV adjustment according to patient size. FINDINGS: A pulmonary embolus is not seen. A thoracic aortic aneurysm is not noted. A pleural effusion is not seen. A pericardial effusion is not seen. 9 centimeter right lower lobe opacity. Cholelithiasis IMPRESSION: Negative for a pulmonary embolism. Right lower lobe opacity has more of the appearance of atelectasis and pneumonia. This should be foll owed until it has cleared to help exclude post obstructive process/underlying mass
[2022-10-02] MEDS: CEFTRIAXONE 1,000 MG in NA CHLORIDE 0.9% 50 ML IVPB SCH (09:14)
[2022-10-02] MEDS: FINASTERIDE 5 MG TAB PO SCH (09:14)
[2022-10-02] MEDS: allopurinoL 100 MG TAB PO SCH (09:14)
[2022-10-02] MEDS: CETIRIZINE HCL 5 MG TABLET PO SCH (09:14)
--- NOTE | 2022-10-02 12:27 | P.CNS ---
Date of Consult: 10/02/22 Reason for Consult: Hypoxemia Primary Care Provider: Dr. Rojo Chief Complaint: Admitted for bipolar TURP. Hypoxemia atelectasis History of Present Illness: Patient is 72 years of age history of sleep apnea is noncompliant history of COPD/asthma and removal of bladder stone postanesthesia is found to be hypoxic is currently on 2 L of nasal cannula oxygen denies any fever chills cough or chest pain she does have an inhaler at home Allergies isosorbide Adverse Reaction (Verified 10/01/22 07:03) URINARY RETENTION Home Medications: Finasteride [Proscar*] 5 mg PO DAILY 12/08/16 Tamsulosin [Flomax*] 0.4 mg PO BEDTIME #30 cap 12/10/16 Allopurinol 100 mg PO DAILY 09/17/22 Diosmin Complex No.1 [Vasculera] 630 mg PO DAILY 09/17/22 Fluticasone/Vilanterol [Breo Ellipta 200-25 Mcg INH] 1 puff IH DAILY 09/17/22 Levocetirizine Dihydrochloride [24Hr Allergy Relief] 5 mg PO DAILY 09/17/22 Turmeric Root/Adela Root Ext [Turmeric Curcumin-Adela Gummy] 2 each PO DAILY 09/17/22 Codeine/APAP [Tylenol W/Codeine #3 tab] 1 tab PO Q6HP PRN #12 tab 10/01/22 Oxybutynin Chloride [Ditropan Xl] 5 mg PO DAILY PRN #30 tab 10/01/22 Smz./Tmp. [Bactrim Ds 800 MG/160 MG] 1 tab PO BID #10 tab 10/01/22 - Past Medical/Surgical History Diabetic: No -: COPD -: BPH -: RA -: allergies -: HDL -: Sleep apnea noncompliant with CPAP -: ANKLE AND KNEE LEFT LEG -: Lumbar Puncture - Family History Mother Medical History: Heart disease, Other (see notes) Notes: COPD, ARTHRITIS, OSTEOPEROSIS - Social History Smoking Status: Never smoker Alcohol use: No CD- Drugs: No Caffeine use: No Place of Residence: Home Review of Systems 10-point ROS is otherwise unremarkable Physical Examination Temp Pulse Resp BP Pulse Ox 97.3 F 67 16 122/64 92 10/02/22 08:00 10/02/22 08:00 10/02/22 08:00 10/02/22 08:00 10/02/22 08:00 General: Alert, Oriented x3 Neck: Supple Respiratory: Clear to auscultation bilaterally Cardiovascular: No edema, Regular rate/rhythm, Normal S1 S2 Laboratory Data (last 24 hrs) 10/02/22 05:36: Sodium 138, Potassium 4.7, BUN 22 H, Creatinine 0.91, Glucose 129 H, Total Bilirubin 0.6, AST 14 L, ALT 19, Alkaline Phosphatase 70 10/02/22 05:36: PT 12.6 H, INR 1.15, APTT 31.7 10/02/22 05:36: WBC 13.90 H, Hgb 13.3 L, Hct 39.8, Plt Count 254 - Problems (1) Hypoxemia Current Visit: Yes Status: Acute Plan: Patient is 72 years of age with a history of obstructive airways disease does use Breo at home developed postoperative hypoxemia with some right lower lobe atelectasis continue with incentive spirometry vital signs are stable doubt if he has an infection will order his supplies for CPAP resume his bronchodilators from home
--- NOTE | 2022-10-02 13:12 | P.PN ---
Subjective Date of Service: 10/02/22 Primary Care Provider: Dr. Rojo Chief Complaint: Admitted for bipolar TURP. Hypoxemia atelectasis Subjective: Improving PATIENT HAD HARD TIME WAKING UP AFTER ANESTHESIA YESTERDAY. THEY CALLED IN WRONG DOCTORS. I ASKED DR. CAMPA TO DO HPI HE ALREADY HAD SEEN PATIENT. HE TODAY IS STILL SLIGHTLY SHORT OF BREATH AND WEAK. I ORDERED CT SCAN THAT SHOWED ATELECTASIS VS PNEUMONIA AND HIS WBC IS AT 13K TODAY. Review of Systems 10-point ROS is otherwise unremarkable General: Weakness, Malaise Physical Examination - Vital Signs Temperature: 98.0 F Blood Pressure: 156/68 Pulse: 78 Respirations: 16 Pulse Ox (%): 90 - Physical Exam General: Oriented x3, Mild distress, Obese HEENT: Atraumatic, PERRLA, EOMI Neck: Supple, JVD not distended Respiratory: Clear to auscultation bilaterally, Normal air movement Cardiovascular: Regular rate/rhythm, Normal S1 S2 Gastrointestinal: Normal bowel sounds, No tenderness Musculoskeletal: No tenderness Integumentary: No rashes Neurological: Normal speech, Normal tone, Normal affect Lymphatics: No axilla or inguinal lymphadenopathy - Studies Laboratory Data (last 24 hrs) 10/02/22 05:36: Sodium 138, Potassium 4.7, BUN 22 H, Creatinine 0.91, Glucose 129 H, Total Bilirubin 0.6, AST 14 L, ALT 19, Alkaline Phosphatase 70 10/02/22 05:36: PT 12.6 H, INR 1.15, APTT 31.7 10/02/22 05:36: WBC 13.90 H, Hgb 13.3 L, Hct 39.8, Plt Count 254 Medications List Reviewed: Yes Assessment And Plan - Current Problems (Diagnosis) (1) Atelectasis Current Visit: Yes Status: Acute Plan: IS DAILY. IV ABX FOR A DAY AND THEN ORAL OKAY LAB DAILY. (2) Hypoxemia Current Visit: Yes Status: Acute Plan: HE IS NOT USING CPAP. HE KNOWS TO USE IT. HE CAN'T GET SUPPLIES. HE WILL CONTACT COMPANY THAT GAVE HIM BEFORE. (3) LUZ (obstructive sleep apnea) Current Visit: Yes Status: Chronic Plan: ABOVE THIS WILL ADD TO HYPOXIA AFTER ANESTHESIA. NO PE ON CT SCAN.
[2022-10-02] MEDS ORDERED: TAMSULOSIN 0.4 MG SR CAP PO SCH (21:00)
[2022-10-03] MEDS: IPRATROPIUM BROM 0.5MG/2.5ML NEB SCH ×2 (01:30→06:10)
[2022-10-03] MEDS: ALBUTEROL 2.5 MG/3 ML NEB SOL NEB SCH ×2 (01:30→06:10)
[2022-10-03 06:41] VITALS: O2SAT 91
[2022-10-03] MEDS: HOME MED 1 EA UNK (Fluticasone/Vilanterol [Breo Ellipta 200-25 Mcg Inh] Blst.W.Dev) IH SCH (09:00)
[2022-10-03] MEDS: DIOSMIN COMPLEX NO 1 PO SCH (09:00)
[2022-10-03 09:04] VITALS: BP 122/62; TEMP 98.5
[2022-10-03] MEDS: CEFTRIAXONE 1,000 MG in NA CHLORIDE 0.9% 50 ML IVPB SCH (09:12)
[2022-10-03] MEDS: allopurinoL 100 MG TAB PO SCH (09:12)
[2022-10-03] MEDS: CETIRIZINE HCL 5 MG TABLET PO SCH (09:12)
[2022-10-03] MEDS: FINASTERIDE 5 MG TAB PO SCH (09:12)
[2022-10-03 09:24] LABS: Absolute Lymphocytes (CBC) 0.8 K/uL (0.7-4.9); Hematocrit 39.5 % (39.6-49.0); Lymphocytes % 9.1 % (15.3-44.8); MCV 88.6 fL (80-100); MPV 7.6 fL (7.6-11.3); RBC Red Blood Cell Count 4.46 M/uL (4.33-5.43)
[2022-10-03 09:35] LABS: Potassium 3.5 mmol/L (3.5-5.1)
--- NOTE | 2022-10-03 12:26 | P.PN ---
Subjective Date of Service: 10/03/22 Primary Care Provider: Dr. Rojo Chief Complaint: Shortness of breath hypoxemia Patient's condition has not changed still complains of chest congestion and shortness of breath in addition is also Review of Systems Respiratory: Cough, Shortness of Breath Physical Examination - Vital Signs Temperature: 98.5 F Blood Pressure: 122/62 Pulse: 87 Respirations: 18 Pulse Ox (%): 93 - Physical Exam General: Alert, Oriented x3 Respiratory: Expiratory wheezes Cardiovascular: No edema, Regular rate/rhythm - Studies Laboratory Data (last 24 hrs) 10/03/22 09:00: Sodium 138, Potassium 3.5 D, BUN 17, Creatinine 0.77, Glucose 178 H 10/03/22 09:00: WBC 8.90, Hgb 13.2 L, Hct 39.5 L, Plt Count 225 Medications List Reviewed: Yes Assessment And Plan - Current Problems (Diagnosis) (1) Hypoxemia Current Visit: Yes Status: Acute Plan: Patient has underlying COPDasthma continue with bronchodilators add steroids he still continues to remain hypoxic evidence of thromboembolism he has right basilar atelectasis ambulate of ordered his CPAP supplies requiring about 3 L of nasal cannula oxygen resume Breo labs reviewed
[2022-10-03] MEDS ORDERED: predniSONE 20 MG TAB PO SCH (13:00)
== END 2022-10-03 14:23 | disposition home or self-care (01) | DRG 988 ==
LOC: OR 06:13 → 2ND 16:06 → OBSVTOIN 10-03 09:15
PROVIDERS: ADMIT Hospitalist; ATTEND Internal Medicine
PROC: 5A09457 Assistance with Respiratory Ventilation, 24-96 Consecutive Hours, Continuous Positive Airway Pressure (ICD-10-PCS; 2022-10-01)
PROC: 0VT08ZZ Resection of Prostate, Via Natural or Artificial Opening Endoscopic (ICD-10-PCS; principal; 2022-10-01 07:30)
PROC: 0TCB8ZZ Extirpation of Matter from Bladder, Via Natural or Artificial Opening Endoscopic (ICD-10-PCS; 2022-10-01 07:30)
DX: J95.89 Other postprocedural complications and disorders of respiratory system, not elsewhere classified (principal); E87.3 Alkalosis; J98.11 Atelectasis; N13.8 Other obstructive and reflux uropathy; I74.9 Embolism and thrombosis of unspecified artery; N40.1 Benign prostatic hyperplasia with lower urinary tract symptoms; G47.33 Obstructive sleep apnea (adult) (pediatric); M06.9 Rheumatoid arthritis, unspecified; J44.9 Chronic obstructive pulmonary disease, unspecified; E78.5 Hyperlipidemia, unspecified; E66.9 Obesity, unspecified; N21.0 Calculus in bladder; R09.02 Hypoxemia; R06.89 Other abnormalities of breathing; Z68.38 Body mass index [BMI] 38.0-38.9, adult; Z79.899 Other long term (current) drug therapy; Z99.89 Dependence on other enabling machines and devices; Z91.198 Patient's noncompliance with other medical treatment and regimen for other reason; Z20.822 Contact with and (suspected) exposure to COVID-19
CPT/HCPCS: 36415; 71045; 71046; 71275; 80048; 80053; 85025; 85610; 85730; 87086; 87088; 87811; 88305; 93005; 94760; G0378; G0379; J0290; J1100; J1580; J2001; J2250; J2405; J2704; J3010; J7030; J7120; J7613; J7644; Q9967

== ENCOUNTER 2023-09-11 00:49 | Inpatient (IN) | payer OTHER ==
--- OUTSIDE RECORDS SUMMARY | 2023-09-11 00:53 | XMS REPORT | Continuity of Care Document ---
:1950 Author Organization [facility] t Address [address] [place] [address] Care Team Providers Name Role Phone Asked, No Pcp Primary Care Physician Unavailable Taurus Rojo Attending Clinician Unavailable Colleen Li Attending Clinician Unavailable Payers Payer Name Policy Type Policy Number Effective Date Expiration Date S bhupendra AETNA 53 [id number] [facility] Problems Condition Condition Condition Status Onset Resolution Last Treating Co mments Source Name Details Category Date Date Treatment Clinician Date MONOCLOMAL Diagnosis Active 2018-11-26 Memoria GAMMOPATHY MONOCLOMAL - 09:33:00 l GAMMOPATHY 00:00: Chang n Active 00 11/25/2018 [facility] Anemia, Anemia, Problem 2019-06-16 Me moria unspecifie unspecifie 11:47:17 l d d Chris 06/16/2019 [place] MONOCLONAL MONOCLONA Diagnosis Active 2018-11-26 Memoria GAMMOPATHY L 09:33:00 l GAMMOPATHY Chang n Active [facility] 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 - [facility] ia ia [facility] 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 Sp héctor [facility] [id number] Nodular Problem Comm on prostate [facility] [id number] BPH loc w Problem Com mon urin Spirit obs/LUTS [facility] [id number] Bladder Problem Common calculi [facility] [id number] Gross Problem Common hematuria [facility] Rheumatoid Rheumatoid Problem C ommon arthritis arthritis, Spi rit unspecifie - CHI d [facility] [id number] Family Problem Common history of Spirit prostate - [facility] cancer [facility] [id number] Family Problem Common history of Spirit kidney - [facility] History of Past Illness Condition Condition Condition Status Onset Resolution Last Treating Co mments Source Name Details Category Date Date Treatment Clinician Date Monoclonal Monoclona Problem 2018-2019-06-16 2019-06-16 Memoria gammopathy l 1-31 11:47:17 11:47:17 l gammopathy 04:58: Chang n 12/03/2018 27 06/16/2019 [facility] Allergies, Adverse Reactions, Alerts Allergy Allergy Status Severity Reaction(s) Onset Inactive Treating Comm ents Source Name Type Date Date Clinician No Known No Known Active Memori a Medicati Medicati l on on Chris Allergmalissa Allergmalissa s s Social History Social Habit Start Date Stop Date Quantity Comments Source Sexual orientation Method [facility] History of Tobacco Common Spirit - Use [facility] Sex Assigned At [birth year] Met [facility] 00:00:00 00:00:00 Smoking Status Start Date Stop Date Source Tobacco smoking consumption unknown [facility] Social History [facility] Medications Ordered Filled Start Stop Current Ordering [...] HCl 0.4 MG 00:00: 00:00 00 :00 losartan 50 2019-0 Yes 50 mg = 1 M emoria mg oral 1-24 tab, PO, l tablet 16:15: Daily, # [place] 00 90 tab, 1 Refill(s) Advair 2019-0 Yes 1 puff, Memoria Diskus 250 1-24 INHALATION l mcg-50 mcg 16:15: , Daily, 0 H ermann inhalation 00 Refill(s) powder Citracal + 2019-0 Yes 2 tab, Memor [...] 0 H ermann inhalation 00 Refill(s) powder Citracal + 2019-0 Yes 2 tab, Memor ia D 250 1-24 CHEW, l mg-500 intl 16:15: Daily, 0 He rmann units oral 00 Refill(s) tablet, chewable Advair 2019-0 Yes 1 puff, Memoria Diskus 250 1-24 INHALATION l mcg-50 mcg 16:15: , Daily, 0 H ermann inhalation 00 Refill(s) powder Citracal + 2019-0 Yes 2 tab, Memor ia D 250 1-24 CHEW, l mg-500 intl 16:15: Daily, 0 He rmann units oral 00 Refill(s) tablet, chewable losartan 50 2019-0 Yes 50 mg = 1 M emoria mg oral 1-24 tab, PO, l tablet 16:15: Daily, # Chris 00 90 tab, 1 Refill(s) Levocetiriz Levocetiriz No Levocetiri ine-Loratad ine-Loratad zine-Lorat [...] Sodium MG MG 10 MG Finasteride Finasteride 2022- No 1{table QD Finasterid 5 MG 5 MG 1001 t} e 5 MG 00:00 :00 Finasteride Finasteride 2022- No 1{table QD Finasterid 5 MG 5 MG 1001 t} e 5 MG 00:00 :00 Finasteride Finasteride 2022- No 1{table QD Finasterid 5 MG 5 MG 10-01 t} e 5 MG 00:00 :00 Vital Signs Vital Name Observation Time Observation Value Comments Source height 2022-08-29 17:45:00 69 [in_i] Common [facility] weight 2022-08-29 17:45:00 263 [lb_av] Common [facility] temperature 2022-08-29 17:45:00 98.6 [degF] Common [facility] bmi 2022-08-29 17:45:00 38.83 kg/m2 Common [facility] oximetry 2022-08-29 17:45:00 96 % [facility] respiratory rate 2022-08-29 17:45:00 18 /min Comm on [facility] blood pressure 2022-08-29 17:45:00 149 mm[Hg] Common [facility] - systolic [facility] blood pressure 2022-08-29 17:45:00 72 mm[Hg] Common [facility] - diastolic [facility] height 2022-08-08 11:00:00 69 [in_i] [facility] weight 2022-08-08 11:00:00 260 [lb_av] [facility] temperature 2022-08-08 11:00:00 98.0 [degF] Common [facility] bmi 2022-08-08 11:00:00 38.39 kg/m2 [facility] oximetry 2022-08-08 11:00:00 90 % [facility] blood pressure 2022-08-08 11:00:00 142 mm[Hg] Common [facility] - systolic [facility] blood pressure 2022-08-08 11:00:00 86 mm[Hg] Common [facility] - diastolic [facility] BMI Calculated 2018-11-26 16:11:00 Felix Mims Weight 2018-11-26 16:11:00 [facility] Height 2018-11-26 16:11:00 175.26 cm [facility] Procedures Procedure Date / Time Performing Clinician Source Performed CT HEART SCAN PLUS W 2023-06-10 22:25:44 Taurus Rojo [facility] PHYSICIAN ORDER US VASCULAR SCREENING 2023-06-10 21:40:00 Taurus Rojo [facility] HEART SCAN PLUS Magnetic resonance (eg, 2015-09-21 06:00:00 Asim riacarlos Perez proton) imaging, upper extremity, other than joint; without contrast material(s) Ankle reconstruction [facility] He emory Knee replacement [facility] Chang lizama ORIF - Open reduction and Felix Mims internal fixation of fracture<sup>1</sup> Prostate manipulation [facility] Plan of Care Planned Activity Planned Date Details Comments Source Future Scheduled 2023-08-29 Screening for [facility] Test 02:10:53 malignant neoplasm of colon (procedure) [code = 849276611] Future Scheduled 2023-08-[address] [facility] Test 02:10:53 malignant neoplasm of colon (procedure) [code = 010922375] Future Scheduled 2023-08-29 65+ PNEUMOCOCCAL [facility] Hospital Test 02:10:53 VACCINE (1 - PCV) [code = 65+ PNEUMOCOCCAL VACCINE (1 - PCV)] Future Scheduled 2023-08-29 Hepatitis C screening [facility] Test 02:10:53 (procedure) [code = 140614799] Future Scheduled 2023-08-29 Screening for [facility] Test 02:10:53 malignant neoplasm of colon (procedure) [code = 327301943] Future Scheduled 2023-08-29 SHINGLES VACCINES (1 Met [facility] Test 02:10:53 of 2) [code = SHINGLES VACCINES (1 of 2)] Future Scheduled 2023-08-29 COVID-19 VACCINE (4 - [facility] Test 02:10:53 season) [code = COVID-19 VACCINE (4 - season)] Future Scheduled 2023-08-29 INFLUENZA VACCINE (#1) [facility] Test 02:10:53 [code = INFLUENZA VACCINE (#1)] Future Scheduled 2023-08-29 Screening for [facility] Test 02:10:53 malignant neoplasm of colon (procedure) [code = 096650199] Future Scheduled 2023-08-[address] [facility] Hospital Test 02:10:53 malignant neoplasm of colon (procedure) [code = 517747651] Encounters Start End Encounter Admission Attending Care Care Encounter Source Date/Time Date/Time Type Type Clinicians Facility Department ID 2023-08-[address] [facility] [id number] Common 15:16:00 Taurus [id number] [facility] 2023-02-20 Outpatient Alia, STLMLC STLMLC [id number] Common 15:34:02 Taurus 27584 [facility] 2022-10-31 Outpatient Alia, STLMLC STLMLC [id number] Common 16:30:01 Taurus [id number] [facility] 2022-09-16 Outpatient Alia, STLMLC STLMLC [id number] Common 10:52:04 Taurus [id number] [facility] 2022-08-29 Outpatient Alia, STLMLC STLMLC [id number] Common 17:23:01 Taurus 67701 [facility] 2022-08-08 Outpatient Alia, STLMLC STLMLC [id number] Common 10:40:03 Taurus 11651 [facility] 2023-06-10 2023-06-10 [facility], 1.2.840.1 [id number] Methodi 15:28:29 23:59:00 Encounter Taurus [id number] 3.430.2.7 Hospit a .3.998001 l .8 2023-06-10 2023-06-10 [facility], .2.840.1 [id number] Methodi 15:27:22 15:27:22 Encounter Taurus [id number] 3.430.2.7 Hospit a .3.674796 l .8 2023-06-10 2023-06-10 Outpatient [facility] [id number] [address] [place] 00:00:00 00:00:00 TAURUS [address] 2023-06-10 2023-06-10 Outpatient [facility] [id number] [address] [place] 00:00:00 00:00:00 TAURUS [address] 2023-05-20 2023-05-20 [facility] 1.2.840.1 [id number] Methodi 00:00:00 00:00:00 Orders Taurus [id number] 3.430.2.7 Hospit a .3.554370 l .8 2022-08-29 2022-08-29 OFFICE STLMLC STLC [id number] Co mmon 00:00:00 00:00:00 VISIT Spirit ESTAB PT - [facility]I LEVEL 4 [facility] 2022-08-11 2022-08-11 (TEL) STLMLC STLC [id number] Co mmon 00:00:00 00:00:00 Spirit - [facility] 2022-08-08 2022-08-08 OFFICE [facility] [id number] Co mmon 00:00:00 00:00:00 VISIT Spirit ESTAB PT - [facility] LEVEL 5 [facility] 2018-11-26 2018-11-27 [place] [id number] Memoria 15:24:00 05:59:00 r Chris 00 l [facility] 2018-11-26 2018-11-27 Outpatient [place] [id number] Memoria 15:24:00 05:59:00 r Chris 00 l [facility] 2018-11-26 2018-11-[address] [facility] [id number] 09:24:00 23:59:[address] [facility] 2018-11-26 2018-11-26 Outpatient TIM Li [facility] [id number] 09:24:00 23:59:[address] [facility] 2015-09-21 2015-09-21 Outpatient nullFlavo [facility] [id number] Memoria 14:41:37 23:59:59 guadalupe Perez 2015-09-21 2015-09-21 Outpatient 2.16.840. 2.16.840.1. 3 [id number] Memoria 14:41:37 23:59:59 [id number]. 460444.3.20 l 3.2081.20 81.2000 Chang n [facility] 2015-09-21 2015-09-21 Outpatient nullFlavo [facility] [id number] Memoria 14:41:37 23:59:59 guadalupe Perez Results Test Description Test Time Test Comments Results Result Comments Source REFERENCE LAB RESULTS 2018-11-27 16:51:00 Test Item Value Reference Range Interpretation Comme nts Test Name (test code = Test Name) [facility] [id number] 16:51:00 Test Item Value Reference Range Interpretation Comments Misc Lab (test code Reference lab results = Misc Lab) scanned in Care4. Results displayed in Elhewff-Ioe-ZWOPPYZME LAB-Outside Lab Documents (Imaged) under date/time results were scanned. Report sent for scanning on 12/08/2018 10:57_. GENOPTIX REPORT [facility] LAB [id number] 16:51:00 Test Item Value Reference Range Interpretation Comments Test Name (test code = Test FISH-MM ENRICHED Name) [facility] LAB [id number] 16:51:00 Test Item Value Reference Range Interpretation Comments Misc Lab (test code Reference lab results = Misc Lab) scanned in [facility]. Results displayed in Bwbjjny-Nyn-ZWCOUQPQG LAB-Outside Lab Documents (Imaged) under date/time results were scanned. Report sent for scanning on 12/08/2018 10:57_. GENOPTIX REPORT [facility] LAB [id number] 16:51:00 Test Item Value Reference Range Interpretation Comments Test Name (test code = Test FISH-MM ENRICHED Name) [facility] LAB [id number] 16:51:00 Test Item Value Reference Range Interpretation Comments Misc Lab (test code Reference lab results = Misc Lab) scanned in [facility]. Results displayed in Mdkfkqs-Ooo-GXRXVHGWG LAB-Outside Lab Documents (Imaged) under date/time results were scanned. Report sent for scanning on 12/08/2018 10:57_. GENOPTIX REPORT [facility]dth[facility]piKHXVTWVWYQ7635-68-15 16:12:00 Test Item Value Reference Range Interpretation Comments Lymphocytes # (test code = Lymphocytes 2.1 1.0-5.5 #) [facility]5776-23-63 16:12:00 Test Item Value Reference Range Interpretation Comments Basophils # (test code 0.0 See_Comment [Aut omated message] The = Basophils #) system which generated this result tra nsmitted reference range : <=0.2. The reference r sapna was not used to int erpret this result as normal/abnormal . [facility] TylerOklfewqPSRFSQNOMO9744-20-84 16:12:00 Test Item Value Reference Range Interpretation Comments Lymphocytes (test code = Lymphocytes) 22.0 20.0-40.0 [facility] TylerDcrbijwHADZUYWKFZ6603-96-05 16:12:00 Test Item Value Reference Range Interpretation Comments Segs (test code = Segs) 64.0 45.0-75.0 [facility] TylerSkouqvbNTSANUIWTF4744-58-35 16:12:00 Test Item Value Reference Range Interpretation Comments Monocytes (test code = Monocytes) 12.0 2.0-12.0 [facility] TylerPnrqgwbPSAIAPDGGQ1401-33-80 16:12:00 Test Item Value Reference Range Interpretation Comments Plt Morph (test code = Normal (11/26/18 10:12 Plt Morph) AM) [facility] TylerSxniwagATJCDCNGCS2887-82-51 16:12:00 Test Item Value Reference Range Interpretation Comments RBC Morph (test code = Normal (11/26/18 10:12 RBC Morph) AM) [facility] TylerAzifgkyGYZOQZDVJJ6914-35-14 16:12:00 Test Item Value Reference Range Interpretation Comments Hgb (test code = Hgb) 13.9 14.0-18.0 [facility] TylerAzqcejfHJMPRDYCSS0333-49-84 16:12:00 Test Item Value Reference Range Interpretation Comments RBC (test code = RBC) 4.59 4.70-6.10 [facility] TylerYkdtsoqBUUXAVHBMB0917-89-15 16:12:00 Test Item Value Reference Range Interpretation Comments WBC (test code = WBC) 9.4 3.7-10.4 [facility] TylerWwnoovxHYFPDLAIQC9214-58-46 16:12:00 Test Item Value Reference Range Interpretation Comments MPV (test code = MPV) 7.3 7.4-10.4 [facility] TylerCiruqooLRZDDGPLHS4243-61-46 16:12:00 Test Item Value Reference Range Interpretation Comments Platelet (test code = Platelet) 342 133-450 [facility] TylerOpgbuwjYCJOTTBXTV1165-33-77 16:12:00 Test Item Value Reference Range Interpretation Comments MCH (test code = MCH) 30.2 pg 27.0-31.0 [facility] TylerQsdruknVBHYSGIKXF4865-85-23 16:12:00 Test Item Value Reference Range Interpretation Comments MCV (test code = MCV) 86.9 80.0-94.0 [facility] TylerNzijqluMPSYZNVCTL1134-47-26 16:12:00 Test Item Value Reference Range Interpretation Comments RDW (test code = RDW) 13.9 11.5-14.5 [facility] TylerCbjzqrwPYNOTQQBXO8486-82-12 16:12:00 Test Item Value Reference Range Interpretation Comments MCHC (test code = MCHC) 34.8 32.0-36.0 [facility] TylerVsxrnipJKHUKIIPWL6912-11-20 16:12:00 Test Item Value Reference Range Interpretation Comments Hct (test code = Hct) 39.9 42.0-54.0 [facility] TylerPqikhssBIFABKXLLH4313-97-06 16:12:00 Test Item Value Reference Range Interpretation Comments Retic Auto (test code = Retic Auto) 1.1 0.5-1.5 [facility] TylerDzhnidaJBYFSKNFLL0602-27-03 16:12:00 Test Item Value Reference Range Interpretation Comments Neutrophils # (test code = Neutrophils 6.0 1.5-8.1 #) [facility] TylerIsqjlqfPKMZMBWSLE7537-32-17 16:12:00 Test Item Value Reference Range Interpretation Comments Monocytes # (test code 1.1 See_Comment [Aut omated message] The = Monocytes #) system which generated this result tra nsmitted reference range : <=0.8. The reference r sapna was not used to int erpret this result as normal/abnormal . [facility] TylerHpqwdfzQJZJKBULZN0735-29-97 16:12:00 Test Item Value Reference Range Interpretation Comments Basophils (test code = 0.0 See_Comment [Aut omated message] The Basophils) system which ge nerated this result tra nsmitted reference range : <=1.0. The reference r sapna was not used to int erpret this result as normal/abnormal . [facility] TylerLvctnvbMFIBBUSPJS5395-58-46 16:12:00 Test Item Value Reference Range Interpretation Comments Eosinophils (test code = 2.0 See_Comment [A utomated message] The Eosinophils) system which ge nerated this result tra nsmitted reference range : <=4.0. The reference r sapna was not used to int erpret this result as normal/abnormal . [facility] TylerZafyosyLTGNLWBTCS2172-09-87 16:12:00 Test Item Value Reference Range Interpretation Comments Tot Cell Ct (test code = Tot Cell Ct) 100 1 [facility] TylerWsqemanMRCMSUJTLU1460-13-74 16:12:00 Test Item Value Reference Range Interpretation Comments Eosinophils # (test code 0.2 See_Comment [A utomated message] The = Eosinophils #) system whic h generated this result tra nsmitted reference range : <=0.5. The reference r sapna was not used to int erpret this result as normal/abnormal . [facility] TylerRnvqzvwSFIANWHOLB8580-86-88 16:12:00 Test Item Value Reference Range Interpretation Comments Lymphocytes # (test code = Lymphocytes 2.1 1.0-5.5 #) [facility] TylerHeeddtpMYAEUVBMWD3103-09-08 16:12:00 Test Item Value Reference Range Interpretation Comments Basophils # (test code 0.0 See_Comment [Aut omated message] The = Basophils #) system which generated this result tra nsmitted reference range : <=0.2. The reference r sapna was not used to int erpret this result as normal/abnormal . [facility] TylerPembwsoFBFYCBUEUS9338-01-22 16:12:00 Test Item Value Reference Range Interpretation Comments Lymphocytes (test code = Lymphocytes) 22.0 20.0-40.0 [facility] TylerDurlqcqWIRZEXDUNG6199-44-11 16:12:00 Test Item Value Reference Range Interpretation Comments Segs (test code = Segs) 64.0 45.0-75.0 [facility] TylerAtojbmrZWMYAZXLZE5588-97-60 16:12:00 Test Item Value Reference Range Interpretation Comments Monocytes (test code = Monocytes) 12.0 2.0-12.0 [facility] TylerOkwceplVUBWOSOHBU8297-67-87 16:12:00 Test Item Value Reference Range Interpretation Comments Plt Morph (test code = Normal (11/26/18 10:12 Plt Morph) AM) [facility] TylerWzchsgsBGSESOGQGF2372-41-37 16:12:00 Test Item Value Reference Range Interpretation Comments RBC Morph (test code = Normal (11/26/18 10:12 RBC Morph) AM) [facility] TylerSjylxqkHNYFTUIJCL1093-17-02 16:12:00 Test Item Value Reference Range Interpretation Comments Hgb (test code = Hgb) 13.9 14.0-18.0 [facility] TylerWugjofdRZVHOATUUK3313-38-28 16:12:00 Test Item Value Reference Range Interpretation Comments RBC (test code = RBC) 4.59 4.70-6.10 [facility] TylerJrxfcldPICJMKBIFV9328-73-31 16:12:00 Test Item Value Reference Range Interpretation Comments WBC (test code = WBC) 9.4 3.7-10.4 [facility] TylerBzrtduyZVPWLUOUQN3429-48-95 16:12:00 Test Item Value Reference Range Interpretation Comments MPV (test code = MPV) 7.3 7.4-10.4 [facility] TylerKrgpkynXJREKHWPXK0485-63-25 16:12:00 Test Item Value Reference Range Interpretation Comments Platelet (test code = Platelet) 342 133-450 [facility] TylerPmiutrgMUVEWRVKUK7053-63-01 16:12:00 Test Item Value Reference Range Interpretation Comments MCH (test code = MCH) 30.2 pg 27.0-31.0 [facility] TylerSshomayTFZXVQIANV2123-93-39 16:12:00 Test Item Value Reference Range Interpretation Comments MCV (test code = MCV) 86.9 80.0-94.0 [facility] TylerPissmvcXFGWHJPFOY8620-19-79 16:12:00 Test Item Value Reference Range Interpretation Comments RDW (test code = RDW) 13.9 11.5-14.5 [facility] TylerFazfpjtOUZVHBOMQE4688-90-03 16:12:00 Test Item Value Reference Range Interpretation Comments MCHC (test code = MCHC) 34.8 32.0-36.0 [facility] TylerGxungdbTGUSHCSCPM9443-70-46 16:12:00 Test Item Value Reference Range Interpretation Comments Hct (test code = Hct) 39.9 42.0-54.0 [facility] TylerSsuxtjmBPRUAQLHPV6347-25-51 16:12:00 Test Item Value Reference Range Interpretation Comments Retic Auto (test code = Retic Auto) 1.1 0.5-1.5 [facility] TylerIravwsoHRHHRQKPQI0466-10-99 16:12:00 Test Item Value Reference Range Interpretation Comments Neutrophils # (test code = Neutrophils 6.0 1.5-8.1 #) [facility] TylerPcpxpavTVNDGZMNSQ5826-73-76 16:12:00 Test Item Value Reference Range Interpretation Comments Monocytes # (test code = Monocytes #) 1.1 <=0.8 [facility] TylerVcktxcrYUCLRCXAGX4439-15-61 16:12:00 Test Item Value Reference Range Interpretation Comments Basophils (test code = Basophils) 0.0 <=1.0 [facility] TylerYsczxtcFEGEVUJYVJ3564-26-97 16:12:00 Test Item Value Reference Range Interpretation Comments Eosinophils (test code = Eosinophils) 2.0 <=4.0 [facility] TylerLgtqohmGNYOKSBHNC0668-54-03 16:12:00 Test Item Value Reference Range Interpretation Comments Tot Cell Ct (test code = Tot Cell Ct) 100 1 [facility] TylerVgwewglFGRBYCTLYG3878-43-36 16:12:00 Test Item Value Reference Range Interpretation Comments Eosinophils # (test code = Eosinophils 0.2 <=0.5 #) [facility] TylerIbrdxbbRGIAOMRTFG4293-65-88 16:12:00 Test Item Value Reference Range Interpretation Comments Lymphocytes # (test code = Lymphocytes 2.1 1.0-5.5 #) [facility] TylerTmmvxtkADJZLIEDCT2847-29-28 16:12:00 Test Item Value Reference Range Interpretation Comments Basophils # (test code = Basophils #) 0.0 <=0.2 [facility] TylerXoledygFOLJDPNGLV4881-31-79 16:12:00 Test Item Value Reference Range Interpretation Comments Lymphocytes (test code = Lymphocytes) 22.0 20.0-40.0 [facility] TylerRwowegtLSFNUPGJAC2305-11-25 16:12:00 Test Item Value Reference Range Interpretation Comments Segs (test code = Segs) 64.0 45.0-75.0 [facility] TylerJcvkemoBOCJDJQRVU6475-22-65 16:12:00 Test Item Value Reference Range Interpretation Comments Monocytes (test code = Monocytes) 12.0 2.0-12.0 [facility] TylerEcdnmmcLGYERQNTIZ6532-19-48 16:12:00 Test Item Value Reference Range Interpretation Comments Plt Morph (test code = Normal (11/26/18 10:12 Plt Morph) AM) [facility] TylerLuejjwkCUBIUYYUEK5399-69-28 16:12:00 Test Item Value Reference Range Interpretation Comments RBC Morph (test code = Normal (11/26/18 10:12 RBC Morph) AM) [facility] TylerQhoymlhKMBLTZEPGR9930-44-53 16:12:00 Test Item Value Reference Range Interpretation Comments Hgb (test code = Hgb) 13.9 14.0-18.0 [facility] TylerQpcaxycIDIWAEQEGW6274-63-29 16:12:00 Test Item Value Reference Range Interpretation Comments RBC (test code = RBC) 4.59 4.70-6.10 [facility] TylerLrzrzvyAZMIFWWBWU4292-30-13 16:12:00 Test Item Value Reference Range Interpretation Comments WBC (test code = WBC) 9.4 3.7-10.4 [facility] TylerJrmaxiyLXERDAMLHR2740-59-58 16:12:00 Test Item Value Reference Range Interpretation Comments MPV (test code = MPV) 7.3 7.4-10.4 [facility] TylerOltqjhfHHEWUZMWZD3594-79-22 16:12:00 Test Item Value Reference Range Interpretation Comments Platelet (test code = Platelet) 342 133-450 [facility] TylerUiyrdrlVXQXTZXTTY6046-42-16 16:12:00 Test Item Value Reference Range Interpretation Comments MCH (test code = MCH) 30.2 pg 27.0-31.0 [facility] [id number] 16:12:00 Test Item Value Reference Range Interpretation Comments MCV (test code = MCV) 86.9 80.0-94.0 [facility] [id number] 16:12:00 Test Item Value Reference Range Interpretation Comments RDW (test code = RDW) 13.9 11.5-14.5 [facility] [id number] 16:12:00 Test Item Value Reference Range Interpretation Comments MCHC (test code = MCHC) 34.8 32.0-36.0 [facility] [id number] 16:12:00 Test Item Value Reference Range Interpretation Comments Hct (test code = Hct) 39.9 42.0-54.0 [facility] [id number] 16:12:00 Test Item Value Reference Range Interpretation Comments Retic Auto (test code = Retic Auto) 1.1 0.5-1.5 [facility] [id number] 16:12:00 Test Item Value Reference Range Interpretation Comments Neutrophils # (test code = Neutrophils 6.0 1.5-8.1 #) [facility] [id number] 16:12:00 Test Item Value Reference Range Interpretation Comments Monocytes # (test code 1.1 See_Comment [Aut omated message] The = Monocytes #) system which generated this result tra nsmitted reference range : <=0.8. The reference r sapna was not used to int erpret this result as normal/abnormal . [facility] [id number] 16:12:00 Test Item Value Reference Range Interpretation Comments Basophils (test code = 0.0 See_Comment [Aut omated message] The Basophils) system which ge nerated this result tra nsmitted reference range : <=1.0. The reference r sapna was not used to int erpret this result as normal/abnormal . [facility] [id number] 16:12:00 Test Item Value Reference Range Interpretation Comments Eosinophils (test code = 2.0 See_Comment [A utomated message] The Eosinophils) system which ge nerated this result tra nsmitted reference range : <=4.0. The reference r sapna was not used to int erpret this result as normal/abnormal . [facility] [id number] 16:12:00 Test Item Value Reference Range Interpretation Comments Tot Cell Ct (test code = Tot Cell Ct) 100 1 [facility] [id number] 16:12:00 Test Item Value Reference Range Interpretation Comments Eosinophils # (test code 0.2 See_Comment [A utomated message] The = Eosinophils #) system ic h generated this result tra nsmitted reference range : <=0.5. The reference r sapna was not used to int erpret this result as normal/abnormal . [facility]
[2023-09-11] MEDS ORDERED: NACL 0.9% IRR SOLN 2,000 ML IRR ONE ×5 (01:40→14:09)
[2023-09-11 02:13] LABS: Absolute Lymphocytes (CBC) 1.7 K/uL (0.7-4.9); Hematocrit 39.1 % (39.6-49.0); Lymphocytes % 15.1 % (15.3-44.8); MCV 90.7 fL (80-100); MPV 7.9 fL (7.6-11.3); Platelets 295 thou/uL (152-406); RBC Red Blood Cell Count 4.31 M/uL (4.33-5.43)
[2023-09-11] MEDS ORDERED: CEFTRIAXONE 1000 MG/VIAL ONE ×2 (02:16→09:07)
[2023-09-11] MEDS ORDERED: ONDANSETRON 4 MG/2 ML VIAL ONE (02:16)
[2023-09-11] MEDS ORDERED: MORPHINE 2 MG/ML SYR ONE (02:16)
[2023-09-11] MEDS ORDERED: NA CHLORIDE 0.9% 1,000 ML ONE (02:17)
[2023-09-11] MEDS ORDERED: NA CHLORIDE 0.9% 50 ML ONE (02:17)
[2023-09-11 02:22] LABS: Protime INR 1.16
[2023-09-11 02:24] LABS: Specific Gravity 1.025 (1.005-1.030); Urine Bacteria None Seen /HPF (<20); Urine Bilirubin NEGATIVE (Negative); Urine Blood 3+ (OVER) (Negative); Urine Clarity Extremely Turbid (Clear); Urine Color Dark-Brown (Yellow); Urine Glucose TRACE (Negative); Urine Protein 3+ (Negative); Urine RBC >50 /HPF (None Seen); Urine Urobilinogen Normal (Normal); Urine pH 7.5 (5.0-7.0)
--- NOTE | 2023-09-11 02:30 | EDPHYS ---
Physician Documentation [facility] Name: Esvin Díaz Age: 73 yrs Sex: Male : 1950 Arrival Date: 09/11/2023 Time: 00:49 Bed 4 Private MD: ED William Colón HPI: 09/11 01:14 This 73 yrs old Male presents to ER via Ambulatory with complaints of Penile gabbi Bleeding. 01:14 The patient presents with urinary symptoms, hesitancy to initiate urine stream, gabbi incontinence of urine, retention, unable to void, Last void was. Onset: The symptoms/episode began/occurred yesterday. Modifying factors: The symptoms are alleviated by nothing, the symptoms are aggravated by nothing. Associated signs and symptoms: Pertinent positives: abdominal pain, hematuria. Severity of symptoms: At their worst the symptoms were mild, in the emergency department the symptoms are unchanged. The patient has not experienced similar symptoms in the past. Historical: - Allergies: 01:02 Isosorbide Mononitrate (unrinary retention); as6 - PMHx: 01:02 BPH; COPD; Hypertension; Rheumatoid Arthritis; as6 - PSHx: 01:02 TURP; as6 - Immunization history:: Adult Immunizations up to date. - Social history:: Smoking status: Patient denies any tobacco usage or history of. ROS: 01:15 Constitutional: Negative for fever, chills, and weight loss, Eyes: Negative for injury, gabbi pain, redness, and discharge, ENT: Negative for injury, pain, and discharge, Neck: Negative for injury, pain, and swelling, Cardiovascular: Negative for chest pain, palpitations, and edema, Respiratory: Negative for shortness of breath, cough, wheezing, and pleuritic chest pain, Abdomen/GI: Negative for abdominal pain, nausea, vomiting, diarrhea, and constipation, Back: Negative for injury and pain, MS/Extremity: Negative for injury and deformity, Skin: Negative for injury, rash, and discoloration, Neuro: Negative for headache, weakness, numbness, tingling, and seizure, Psych: Negative for depression, anxiety, suicide ideation, homicidal ideation, and hallucinations, Allergy/Immunology: Negative for hives, rash, and allergies, Endocrine: Negative for neck swelling, polydipsia, polyuria, polyphagia, and marked weight changes, Hematologic/Lymphatic: Negative for swollen nodes, abnormal bleeding, and unusual bruising, 01:15 : Positive for hematuria, Exam: 01:15 Constitutional: This is a well developed, well nourished patient who is awake, alert, gabbi and in no acute distress. Head/Face: Normocephalic, atraumatic. Eyes: Pupils equal round and reactive to light, extra-ocular motions intact. Lids and lashes normal. Conjunctiva and sclera are non-icteric and not injected. Cornea within normal limits. Periorbital areas with no swelling, redness, or edema. ENT: Nares patent. No nasal discharge, no septal abnormalities noted. Tympanic membranes are normal and external auditory canals are clear. Oropharynx with no redness, swelling, or masses, exudates, or evidence of obstruction, uvula midline. Mucous membranes moist. Neck: Trachea midline, no thyromegaly or masses palpated, and no cervical lymphadenopathy. Supple, full range of motion without nuchal rigidity, or vertebral point tenderness. No Meningismus. Chest/axilla: Normal chest wall appearance and motion. Nontender with no deformity. No lesions are appreciated. Cardiovascular: Regular rate and rhythm with a normal S1 and S2. No gallops, murmurs, or rubs. Normal PMI, no JVD. No pulse deficits. Respiratory: Lungs have equal breath sounds bilaterally, clear to auscultation and percussion. No rales, rhonchi or wheezes noted. No increased work of breathing, no retractions or nasal flaring. Abdomen/GI: Soft, non-tender, with normal bowel sounds. No distension or tympany. No guarding or rebound. No evidence of tenderness throughout. Back: No spinal tenderness. No costovertebral tenderness. Full range of motion. Skin: Warm, dry with normal turgor. Normal color with no rashes, no lesions, and no evidence of cellulitis. MS/ Extremity: Pulses equal, no cyanosis. Neurovascular intact. Full, normal range of motion. Neuro: Awake and alert, GCS 15, oriented to person, place, time, and situation. Cranial nerves II-XII grossly intact. Motor strength 5/5 in all extremities. Sensory grossly intact. Cerebellar exam normal. Normal gait. Psych: Awake, alert, with orientation to person, place and time. Behavior, mood, and affect are within normal limits. 01:15 : CVA tenderness, is absent, Male external genitalia: normal, abrasion, erythema, laceration, Bladder: distension, that is mild, 02:30 ECG was reviewed by the Attending Physician. [facility] Vital Signs: 01:01 BP 153 / 70; Pulse 91; Resp 18 S; Temp 98.4(O); Pulse Ox 96% on R/A; Weight 113.4 kg as6 (R); Height 5 ft. 9 in. (R); Pain 8/10; 02:13 BP 124 / 69; Pulse 73; Resp 17 S; Pulse Ox 96% on 3 lpm NC; lg3 04:24 BP 131 / 63; Pulse 73; Resp 18 S; Pulse Ox 96% on 3 lpm NC; lg3 01:01 Body Mass Index 36.92 (113.40 kg, 175.26 cm) as6 01:01 Pain Scale: Adult as6 MDM: 00:58 Patient medically screened. [facility] 01:17 Differential diagnosis: nonspecific abdominal pain, UTI, urinary retention, Barrera gabbi catheter problem, prostatitis, urethritis, Cholelithiasis, diverticulitis. Data reviewed: vital signs, nurses notes, lab test result(s), EKG, radiologic studies, CT scan, plain films. Consideration of Admission/Observation Escalation of care including admission/observation considered. I considered the following discharge prescriptions or medication management in the emergency department Medications were administered in the Emergency Department. See MAR. Test considered but Not performed: Ultrasound NO ABD PAIN. Care significantly affected by the following chronic conditions: Hypertension, Chronic Obstructive Pulmonary Disease, BPH, RHEUMATOID ARTHRITIS. 09/11 01:05 Order name: Basic Metabolic Panel; Complete Time: 02:39 [facility] 09/11 01:05 Order name: CBC with Diff; Complete Time: 02:26 [facility] 09/11 01:05 Order name: LFT's; Complete Time: 02:39 [facility] 09/11 01:05 Order name: Magnesium; Complete Time: 02:39 [facility] 09/11 01:05 Order name: NT PRO-BNP; Complete Time: 02:39 [facility] 09/11 01:05 Order name: PT-INR; Complete Time: 02:26 [facility] 09/11 01:05 Order name: Troponin HS; Complete Time: 02:39 [facility] 09/11 01:05 Order name: Urinalysis w/ reflexes; Complete Time: 02:39 [facility] 09/11 01:05 Order name: Urine Culture [facility] 09/11 09:26 Order name: Hemoglobin [facility] 09/11 09:26 Order name: Hematocrit [facility] 09/11 09:45 Order name: Hemoglobin [facility] 09/11 09:45 Order name: Hematocrit [facility] 09/11 01:05 Order name: XRAY Chest (1 view) [facility] 09/11 01:05 Order name: CT Stone Protocol [facility] 09/11 01:05 Order name: EKG; Complete Time: 01:06 [facility] 09/11 02:37 Order name: CONS Physician Consult [facility] 09/11 01:05 Order name: Cardiac monitoring; Complete Time: 02:04 [facility] 09/11 01:05 Order name: EKG - Nurse/Tech; Complete Time: 02:04 [facility] 09/11 01:05 Order name: IV Saline Lock; Complete Time: 01:50 [facility] 09/11 01:05 Order name: Labs collected and sent; Complete Time: 01:50 [facility] 09/11 01:05 Order name: O2 Per Protocol; Complete Time: 01:50 [facility] 09/11 01:05 Order name: O2 Sat Monitoring; Complete Time: 01:50 [facility] 09/11 01:05 Order name: Barrera-Three way; Complete Time: 01:50 [facility] 09/11 02:28 Order name: Misc. Order: cont bladder irrigation; Complete Time: 02:40 [facility] 09/11 03:25 Order name: Misc. Order: deflate barrera and advance please; Complete Time: 04:24 gabbi EC:30 Rate is 77 beats/min. Rhythm is regular. QRS [place] is Normal. SC interval is normal. QRS gabbi interval is normal. QT interval is normal. No Q waves. T waves are Normal. No ST changes noted. Clinical impression: NSR w/ Non-specific ST/T Changes and No evidence of ischemia. Interpreted by me. Reviewed by me. Administered Medications: 02:11 Drug: Ondansetron IVP 4 mg IVP once; over 2 minutes Route: IVP; Site: right antecubital;lg3 05:19 Follow up: Response: No adverse reaction 3 02:11 Drug: Rocephin IV 1 grams IV at per protocol once; Given slow IV push per pharmacy lg3 instructions Route: IV; Rate: per protocol; Site: right antecubital; 05:19 Follow up: Response: No adverse reaction; IV Status: Completed infusion; IV Intake: 13mnoc1 02:12 Drug: NS 0.9% IV 1000 ml IV at 125 ml/hr continuous Route: IV; Rate: 125 ml/hr; Site: lg3 right antecubital; 05:20 Follow up: Response: No adverse reaction; IV Status: Completed infusion; IV Intake: lg3 1000ml 02:12 Drug: morphine IVP or IV 2 mg IVP once over 4 mins Route: IVP; Infused Over: 4 mins; lg3 Site: right antecubital; 05:19 Follow up: Response: No adverse reaction lg3 06:02 Not Given (Patient Refused): morphineor iv 2 mg IVP once over 4 mins lg3 Disposition Summary: 09/11/23 02:29 Hospitalization Ordered Notes: Hospitalization Status: Inpatient Admission gabbi Provider: Taurus Rojo cha Condition: Stable gabbi Problem: new gabbi Symptoms: have improved gabbi Bed/Room Type: Standard [facility] Location: Telemetry/MedSurg (Inpatient)(09/11/23 16:51) bc6 Room Assignment: [facility](09/11/23 16:51) bc6 Diagnosis - Gross hematuria gabbi - Abdominal tenderness gabbi - UTI/ Urinary tract infection, site not specified gabbi Forms: - Medication Reconciliation Form gabbi - SBAR form gabbi - Leadership Thank You Letter gabbi Signatures: Dispatcher [employer] William Martinez MD MD cha Garcia, Cindy, RN RN cg Gibson, Lacie, RN RN 3 Simone Hollingsworth RN RN as6 Amie Buckner 6 Corrections: (The following items were deleted from the chart) 03:09 02:29 Telemetry/MedSurg (Inpatient) gabbi cg 03:09 02:29 gabbi cg 16:51 03:09 [facility] ER HOLD cg bc6 16:51 03:09 ERHOLD- cg bc6
--- NOTE | 2023-09-11 02:30 | ER ---
Nurse's Notes [facility] Name: Esvin Díaz Age: 73 yrs Sex: Male : 1950 Arrival Date: 09/11/2023 Time: 00:49 Bed 4 Private MD: Diagnosis: Gross hematuria;Abdominal tenderness;UTI/ Urinary tract infection, site not specified Presentation: 09/11 01:02 Chief complaint: Patient states: "Tonight I started peeing blood with clots". as6 Coronavirus screen: At this time, the client does not indicate any symptoms associated with coronavirus-19. Ebola Screen: No symptoms or risks identified at this time. Initial Sepsis Screen: Does the patient meet any 2 criteria? No. Patient's initial sepsis screen is negative. Does the patient have a suspected source of infection? No. Patient's initial sepsis screen is negative. Risk Assessment: Do you want to hurt yourself or someone else? Patient reports no desire to harm self or others. Onset of symptoms was September 11, 2023. 01:02 Acuity: NATACHA 3 as6 01:02 Method Of Arrival: Ambulatory as6 Historical: - Allergies: 01:02 Isosorbide Mononitrate (unrinary retention); as6 - PMHx: 01:02 BPH; COPD; Hypertension; Rheumatoid Arthritis; as6 - PSHx: 01:02 TURP; as6 - Immunization history:: Adult Immunizations up to date. - Social history:: Smoking status: Patient denies any tobacco usage or history of. Screenin:47 [facility] ED Fall Risk Assessment (Adult) History of falling in the last 3 months, lg3 including since admission No falls in past 3 months (0 pts). Abuse screen: Denies threats or abuse. Denies injuries from another. Nutritional screening: No deficits noted. Tuberculosis screening: No symptoms or risk factors identified. Assessment: 01:47 General: Appears in no apparent distress. uncomfortable, Behavior is calm, cooperative. lg3 Pain: Complains of pain in pelvis Quality of pain is described as pressure. Neuro: No deficits noted. Patterson Agitation-Sedation Scale (RASS): 0 - Alert and Calm Level of Consciousness is awake, alert, obeys commands, Oriented to person, place, time, situation. Cardiovascular: No deficits noted. Denies chest pain, shortness of breath, Capillary refill < 3 seconds Clubbing of nail beds is absent JVD is absent Patient's skin is warm and dry. Respiratory: No deficits noted. Airway is patent Respiratory effort is even, unlabored, Respiratory pattern is regular, symmetrical. GI: Abdomen is round non-distended, obese. : moderate sized blood clots coming from urethra. EENT: No deficits noted. No signs and/or symptoms were reported regarding the EENT system. Derm: No deficits noted. No signs and/or symptoms reported regarding the dermatologic system. Skin is intact, is healthy with good turgor, Skin is dry, Skin is normal, Skin temperature is warm. Musculoskeletal: No deficits noted. No signs and/or symptoms reported regarding the musculoskeletal system. Circulation, motion, and sensation intact. Range of motion: intact in all extremities. 02:12 General: pt O2 saturation lowered to 87% RA post administration of Morphine 2mg IV. lg3 oxygen applied via NC and provider notified. 04:24 Reassessment: Patient appears in no apparent distress at this time. No changes from lg3 previously documented assessment. Patient and/or family updated on plan of care and expected duration. Pain level reassessed. Patient is alert, oriented x 3, equal unlabored respirations, skin warm/dry/pink. 17:07 Reassessment: attempted to call report to 2nd floor. no nurse assigned at this time. kc6 they will call me back. Vital Signs: 01:01 BP 153 / 70; Pulse 91; Resp 18 S; Temp 98.4(O); Pulse Ox 96% on R/A; Weight 113.4 kg as6 (R); Height 5 ft. 9 in. (R); Pain 8/10; 02:13 BP 124 / 69; Pulse 73; Resp 17 S; Pulse Ox 96% on 3 lpm NC; lg3 04:24 BP 131 / 63; Pulse 73; Resp 18 S; Pulse Ox 96% on 3 lpm NC; lg3 01:01 Body Mass Index 36.92 (113.40 kg, 175.26 cm) as6 01:01 Pain Scale: Adult as6 ED Course: 00:52 Patient arrived in ED. ag3 00:58 William Mack MD is Attending Physician. gabbi 01:01 Arm band placed on. as6 01:03 Triage completed. as6 01:17 XRAY Chest (1 view) In Process Unspecified. EDMS 01:47 Patient has correct armband on for positive identification. Placed in gown. Bed in low lg3 position. Call light in reach. Side rails up X 1. Client placed on continuous cardiac and pulse oximetry monitoring. NIBP monitoring applied. media clerk on. Door closed. Noise minimized. Warm blanket given. Family accompanied patient. 01:47 3-way catheter inserted, using sterile technique, 18 Fr. Specimen obtained. Returned lg3 bloody urine. Inserted saline lock: 20 gauge in right antecubital area, using aseptic technique. Blood collected. Patient maintains SpO2 saturation greater than 95% on room air. 01:50 Urine Culture Sent. lg3 01:50 Urinalysis w/ reflexes Sent. lg3 01:50 Basic Metabolic Panel Sent. lg3 01:50 CBC with Diff Sent. lg3 01:50 LFT's Sent. lg3 01:50 Magnesium Sent. lg3 01:50 NT PRO-BNP Sent. lg3 01:50 PT-INR Sent. lg3 01:50 Troponin HS Sent. lg3 01:51 Bladder irrigated via Ramirez normal saline Patient tolerated well. lg3 02:00 CT Stone Protocol In Process Unspecified. EDMS 02:04 Mela Nunez, [place] is Primary Nurse. lg3 02:28 Taurus Rojo MD is Hospitalizing Provider. gabbi 06:17 No provider procedures requiring assistance completed. Patient admitted, IV remains in lg3 place. 06:18 Provided Education on: need for admission. lg3 07:00 Report received from [facility] [facility]. kc6 Administered Medications: 02:11 Drug: Ondansetron IVP 4 mg IVP once; over 2 minutes Route: IVP; Site: right antecubital;lg3 05:19 Follow up: Response: No adverse reaction lg3 02:11 Drug: Rocephin IV 1 grams IV at per protocol once; Given slow IV push per pharmacy lg3 instructions Route: IV; Rate: per protocol; Site: right antecubital; 05:19 Follow up: Response: No adverse reaction; IV Status: Completed infusion; IV Intake: [id number] 02:12 Drug: NS 0.9% IV 1000 ml IV at 125 ml/hr continuous Route: IV; Rate: 125 ml/hr; Site: lg3 right antecubital; 05:20 Follow up: Response: No adverse reaction; IV Status: Completed infusion; IV Intake: lg3 1000ml 02:12 Drug: morphine IVP or IV 2 mg IVP once over 4 mins Route: IVP; Infused Over: 4 mins; lg3 Site: right antecubital; 05:19 Follow up: Response: No adverse reaction lg3 06:02 Not Given (Patient Refused): morphineor iv 2 mg IVP once over 4 mins lg3 Medication: 06:17 VIS not applicable for this client. lg3 Intake: 05:19 IV: 10ml; Total: 10ml. lg3 05:20 IV: 1000ml; Total: 1010ml. lg3 Outcome: 02:29 Decision to Hospitalize by Provider. gabbi 06:17 Admitted to ER Hold. Please see [facility] for further documentation. lg3 06:17 Condition: stable 06:17 Instructed on the need for admit, Demonstrated understanding of instructions, 18:35 Patient left the ED. kc6 Signatures: Dispatcher [employer] EDWilliam Mortensen MD MD cha Gomez, Alice 3 Mela Nunez, RN RN lg3 Simone Hollingsworth, [place] RN as6 Baylee Tatum RN RN kc6
[2023-09-11 02:37] LABS: Albumin 3.4 g/dL (3.4-5.0); Bilirubin Direct 0.2 mg/dL (0-0.2); Bilirubin Indirect, Calculated 0.3 mg/dL (0.2-0.8); Bilirubin Total 0.5 mg/dL (0.2-1.0); Magnesium 1.9 mg/dL (1.6-2.4); Potassium 3.5 mEq/L (3.5-5.1); Protein, Total 8.6 g/dL (6.4-8.2); Troponin High Sensitivity 6.8 pg/mL (<58.9)
[2023-09-11] MEDS ORDERED: NACL 0.9% IRR SOLN 4,000 ML IRR ONE ×2 (04:09→22:17)
[2023-09-11] MEDS ORDERED: NACL 0.9% IRR ONE (05:33)
[2023-09-11] MEDS ORDERED: IRR IRR ONE (05:33)
[2023-09-11] MEDS ORDERED: NA CHLORIDE 0.9% 1,000 ML IV SCH (05:34)
[2023-09-11] MEDS ORDERED: ONDANSETRON 4 MG/2 ML VIAL IV PRN (05:34)
[2023-09-11 05:54] VITALS: BMI 36.9
[2023-09-11] MEDS: NA CHLORIDE 0.9% 1,000 ML IV SCH ×2 (08:24→20:36)
[2023-09-11] MEDS ORDERED: PNEUMOCOCCAL VACCINE 0.5 ML IMVAC ONE (09:00)
[2023-09-11] MEDS: CEFTRIAXONE 1,000 MG in NA CHLORIDE 0.9% 50 ML IVPB SCH ×2 (09:00→20:36)
[2023-09-11 09:44] LABS: Hematocrit 33.1 % (39.6-49.0)
--- NOTE | 2023-09-11 13:00 | P.HP ---
Certification for Inpatient Patient admitted to: Inpatient With expected LOS: >2 Midnights Practitioner: I am a practitioner with admitting privileges, knowledge of patient current condition, hospital course, and medical plan of care. Services: Services provided to patient in accordance with Admission requirements found in Title 42 Section 412.3 of the Code of Federal Regulations Patient History Date of Service: 09/11/23 Reason for admission: SEVERE HEMATURIA History of Present Illness: Farhan GRIDER IS A PATIENT WITH COPD AND COMES WITH SUDDEN SEVREE HEMATURIA. THERE IS NO PAIN. I HAVE CALLED DR. MCKAY AND HE WILL GET PROCEDURE SOON. Allergies isosorbide Adverse Reaction (Verified 10/01/22 07:03) URINARY RETENTION Home medications list reviewed: Yes Home Medications: Finasteride [Proscar*] 5 mg PO DAILY 12/08/16 Tamsulosin [Flomax*] 0.4 mg PO BEDTIME #30 cap 12/10/16 Allopurinol 100 mg PO DAILY 09/17/22 Diosmin Complex No.1 [Vasculera] 630 mg PO DAILY 09/17/22 Fluticasone/Vilanterol [Breo Ellipta 200-25 Mcg Inhalr] 1 puff IH DAILY 09/17/22 Levocetirizine Dihydrochloride [24Hr Allergy Relief] 5 mg PO DAILY 09/17/22 Turmeric Root/Adela Root Ext [Turmeric Curcumin-Adela Gummy] 2 each PO DAILY 09/17/22 Codeine/APAP [Tylenol W/Codeine #3 tab] 1 tab PO Q6HP PRN #12 tab 10/01/22 Smz./Tmp. [Bactrim Ds 800 MG/160 MG] 1 tab PO BID #10 tab 10/01/22 oxyBUTYnin chloride [Ditropan Xl] 5 mg PO DAILY PRN #30 tab 10/01/22 - Past Medical/Surgical History Diabetic: No -: COPD -: BPH -: RA -: allergies -: HDL -: Sleep apnea noncompliant with CPAP -: ANKLE AND KNEE LEFT LEG -: Lumbar Puncture - Family History Mother -: Heart disease, Other (see notes) Notes: COPD, ARTHRITIS, OSTEOPEROSIS - Social History Smoking Status: Never smoker Alcohol use: No CD- Drugs: No Caffeine use: No Place of Residence: Home Review of Systems 10-point ROS is otherwise unremarkable General: Weakness, Malaise Physical Examination - Vital Signs Blood Pressure: 106/68 Pulse: 58 Respirations: 18 Pulse Ox (%): 97 - Physical Exam General: Alert, In no apparent distress HEENT: Atraumatic, PERRLA, Mucous membr. moist/pink, EOMI, Sclerae nonicteric Neck: Supple, 2+ carotid pulse no bruit, No LAD, Without JVD or thyroid abnormality Respiratory: Clear to auscultation bilaterally, Normal air movement Cardiovascular: Regular rate/rhythm, Normal S1 S2 Gastrointestinal: Normal bowel sounds, No tenderness Musculoskeletal: No tenderness Integumentary: No rashes Neurological: Normal gait, Normal speech, Normal strength at 5/5 x4 extr, Normal tone, Normal affect Lymphatics: No axilla or inguinal lymphadenopathy - Studies Laboratory Data (last 24 hrs) 09/11/23 09/11/23 09/11/23 01:38 01:38 01:38 WBC 11.50 H Hgb 13.3 L Hct 39.1 L Plt Count 295 PT 12.8 H INR 1.16 Sodium 135 L Potassium 3.5 BUN 16 Creatinine 0.87 Glucose 120 H Magnesium 1.9 Total Bilirubin 0.5 AST 19 ALT 24 Alkaline Phosphatase 106 Assessment and Plan - Problems (Diagnosis) (1) COPD (chronic obstructive pulmonary disease) Current Visit: No Status: Chronic (2) Gross hematuria Current Visit: Yes Status: Acute Plan: CONSULTED DR. MCKAY CALLED HIM AND ER ALSO CALLED. NEEDS PROCEDURE SOON PROGNOSIS GUARDED. - Advance Directives Does patient have a Living Will: No Does patient have a Durable POA for Healthcare: No
[2023-09-11] MEDS ORDERED: LIDOCAINE HCL JELLY 2% 6 ML SYRINGE TOP ONE (14:09)
--- NOTE | 2023-09-11 14:29 | RAD REPORT ---
EXAM DESCRIPTION: RAD - Chest Single View - 09/11/2023 1:15 am CLINICAL HISTORY: 73 years, Male, COUGH COMPARISON: None. FINDINGS: 1 views of the chest was obtained. No prior films are available at this time for compari son. The lung volume is slightly decreased. The cardiomediastinal silhouette demonstrate to be within normal limits. The heart is not enlarged. The thoracic aorta demonstrate minimal intimal calcificati on. The pulmonary vasculature is normal in distribution. The costophrenic angles demonstrate to be sh augustine.. No areas of consolidations or masses are identified. There is no evidence for pneumothorax. T he rest of the soft tissue and bony structures are unremarkable. IMPRESSION: No acute cardiopulmonary disease identified. Electronically signed by: Alfredito Inman MD 09/11/2023 01:50 AM FUR DRUMMER Due to temporary technical issues with the PACS/Fluency reporting system, reports are being signed by the in house radiologist without review as a courtesy to ensure prompt reporting. The interpreting r adiologist is fully responsible for the content of the report.
--- NOTE | 2023-09-11 14:30 | RAD REPORT ---
EXAM DESCRIPTION: CT - Stone Protocol - 09/11/2023 6:50 am CLINICAL HISTORY: ABD PAIN TECHNIQUE: Contiguous axial images obtained through the abdomen and pelvis without IV contrast. Sagi ttal and coronal reformatted images were provided. This exam was performed according to our departmental dose-optimization program, which includes autom ated exposure control, adjustment of the mA and/or kV according to patient size and/or use of iterati ve reconstruction technique. COMPARISON: August 2022 FINDINGS: Lung bases: Atelectatic changes in the lung bases. Liver: Unremarkable Gallbladder and biliary system: Multiple gallstones. Mildly distended gallbladder. Pancreas: Unremarkable Spleen: Unremarkable Adrenals: Unremarkable Kidneys: No calculi. No hydronephrosis. Gl: No obstruction. No appreciable mucosal thickening. Sigmoid diverticulosis with no evidence of diverticulitis. Appendix: No findings to suggest acute appendicitis. Urinary bladder: Heterogeneous increased attenuation within the urinary bladder likely representing e xtensive hematuria, extending from the prostatic urethra.. Urothelial mass cannot be excluded. Reproductive: Markedly enlarged prostate impressing on the base of the urinary bladder. Ramirez catheter balloon is in the prostatic urethra and should be repositioned. Lymph nodes: No pathologically enlarged lymph nodes. Peritoneum: No focal fluid collection. No free air. Vessels: No abdominal aortic aneurysm. Abdominal wall: Fat-containing periumbilical ventral hernia. Bones: UnremarkableNo acute bony pathology IMPRESSION: 1. Ramirez catheter balloon is in the prostatic urethra and should be repositioned. 2. Heterogeneous increased attenuation within the urinary bladder likely representing extensive hem aturia, extending from the prostatic urethra. Urothelial mass cannot be excluded. 3. Markedly enlarged prostate impressing on the base of the urinary bladder. 4. Multiple gallstones. Mildly distended gallbladder. 5. Sigmoid diverticulosis with no evidence of diverticulitis. Electronically signed by: Dallas Cruz MD 09/11/2023 02:58 AM HUNTING SALES LEADER Due to temporary technical issues with the PACS/Fluency reporting system, reports are being signed by the in house radiologist without review as a courtesy to ensure prompt reporting. The interpreting r adiologist is fully responsible for the content of the report.
--- NOTE | 2023-09-11 21:10 | P.CNS ---
Date of Consult: 09/11/23 Reason for consultation: Gross hematuria and clot retention History of present illness: 73-year-old gentleman with hypertension, hyperlipidemia, asthma/COPD and gout s/p TURP by Dr. Moreno about 5 years ago on finasteride for over 5 years with persistent bothersome LUTS due to BPH, family history of prostate cancer in his brother, and microscopic hematuria with history of kidney cancer in his siblings p unremarkable CTU but cystoscopy 08/29/2022 revealing significant interdigitating lateral lobar hypertrophy with mid gland fusion and mild to moderate intravesical projection associated with at least two 1 to 1.5 cm bladder calculi causing gross hematuria s/p Cystolitholopaxy and bipolar TURP 10/01/22 with improved flow and stream but bothersome urinary frequency resolved with the addition of Vesicare 5 mg daily. At the time of his last visit 05/2023, AUA symptom score 6/35 and he was was mostly satisfied, SH IM . The plan after that visit was for him to follow- up in 5 to 6 months interval assessment and obtain a PSA prior to follow-up. Unfortunately, on yesterday/Friday, he developed gross hematuria associated with the passage of some clots, and this progressively worsened over the course of the evening until he presented to the emergency department overnight. At this point, he was unable to urinate due to significant clot retention, and the emergency department placed a Ramirez catheter and started CBI. Despite this, there was significant refractory gross hematuria, and the emergency department nursing was having difficulty managing the CBI. He denied any prior dysuria or bothersome LUTS before the gross hematuria started. He denied use of any oral anticoagulants therapy. Examination: Patient reasonably comfortable and well-appearing in no acute distress 20 Slovak three-way Ramirez catheter coming from the urethra but not draining significantly with CBI slowly dripping in. Laboratory assessment: WBC 11.5, hemoglobin 13.3 that decreased to 11.3 over 12 hours of observation, platelets 295, INR 1.16, creatinine 0.87 UA micro trace leukocyte esterase/negative nitrites, greater than 50 RBCs, g reater than [address] - Stone Protocol - 09/11/2023 6:50 am CLINICAL HISTORY: ABD PAIN TECHNIQUE: Contiguous axial images obtained through the abdomen and pelvis without IV contrast. Sagittal and coronal reformatted images were provided. This exam was performed according to our departmental dose-optimization program, which includes automated exposure control, adjustment of the mA and/or kV according to patient size and/or use of iterative reconstruction technique. COMPARISON: August 2022 FINDINGS: Lung bases: Atelectatic changes in the lung bases. Liver: Unremarkable Gallbladder and biliary system: Multiple gallstones. Mildly distended gallbladder. Pancreas: Unremarkable Spleen: Unremarkable Adrenals: Unremarkable Kidneys: No calculi. No hydronephrosis. Gl: No obstruction. No appreciable mucosal thickening. Sigmoid diverticulosis with no evidence of diverticulitis. Appendix: No findings to suggest acute appendicitis. Urinary bladder: Heterogeneous increased attenuation within the urinary bladder likely representing extensive hematuria, extending from the prostatic urethra.. Urothelial mass cannot be excluded. Reproductive: Markedly enlarged prostate impressing on the base of the urinary bladder. Ramirez catheter balloon is in the prostatic urethra and should be repositioned. Lymph nodes: No pathologically enlarged lymph nodes. Peritoneum: No focal fluid collection. No free air. Vessels: No abdominal aortic aneurysm. Abdominal wall: Fat-containing periumbilical ventral hernia. Bones: UnremarkableNo acute bony pathology IMPRESSION: 1. Ramirez catheter balloon is in the prostatic urethra and should be repositioned. 2. Heterogeneous increased attenuation within the urinary bladder likely representing extensive hematuria, extending from the prostatic urethra. Urothelial mass cannot be excluded. 3. Markedly enlarged prostate impressing on the base of the urinary bladder. 4. Multiple gallstones. Mildly distended gallbladder. 5. Sigmoid diverticulosis with no evidence of diverticulitis. Extensive bladder irrigation followed by Ramirez catheter replacement and further irrigation and CBI initiation procedure note: I initially started by assessing the 20 Slovak three-way catheter, attempting to irrigate the catheter using a 60 cc catheter tip syringe and saline. I was able to irrigate the catheter, but it irrigated relatively poorly and there was persistent significant gross hematuria. As a result, I deflated the balloon of 10 cc and removed the three-way catheter before prepping his genitalia with Betadine and draping it in standard fashion. I then injected lidocaine intraurethrally for local anesthesia before passing a 22 Slovak three-way Ramirez catheter back via his urethra and into his bladder confidently with relative ease, only noting a slight degree of resistance potentially at the bladder neck. I then inflated the balloon with a total of approximately 20 cc of a mixture of sterile water and saline, as that was all available in the emergency department. I then extensively irrigated his bladder, removing a large burden of formed clot, over the course of the next 45 minutes, using over 3 L of irrigant fluid to ultimately achieve light pink eflux having removed most clots. I then added an additional 10 cc of fluid/saline to the balloon and another 20 cc of air to distend the balloon before placing the catheter on a slight degree of traction and resuming CBI with normal saline. With CBI progressing at a [id number] drip initially, the fluid return was pink/zuleima. Over the course of the next 15 minutes of observation, the efflux of fluid and urine was light pink to clear, and CBI was slowed to a slow to moderate drip and it maintained light pink to clear. Assessment: 73-year-old gentleman with hypertension, hyperlipidemia, asthma/COPD and gout s/p TURP by Dr. Moreno about 5 years ago on finasteride for over 5 years with persistent bothersome LUTS due to BPH, family history of prostate cancer in his brother, and microscopic hematuria with history of kidney cancer in his siblings p unremarkable CTU but cystoscopy 08/29/2022 revealing significant interdigitating lateral lobar hypertrophy with mid gland fusion and mild to moderate intravesical projection associated with at least two 1 to 1.5 cm bladder calculi causing gross hematuria s/p Cystolitholopaxy and bipolar TURP 10/01/22 with improved flow and stream but bothersome urinary frequency resolved with the addition of Vesicare 5 mg daily, now with gross hematuria and clot retention of uncertain etiology. -Continue CBI and attempt to wean CBI to keep urine light pink to clear, ultimately to off. -If unable to wean CBI accordingly, and if patient suffers progressive anemia, operative evaluation to include cystoscopy with clot evacuation and fulguration may be required. -Antimicrobial therapy appropriate while on CBI and awaiting results of urine culture -Will follow
[2023-09-11] MEDS: MORPHINE 2 MG/ML SYR IV PRN (21:33)
[2023-09-11] MEDS ORDERED: LIDOCAINE JELLY 2% 5 ML SYRINGE TOP ONE (22:31)
--- NOTE | 2023-09-11 23:16 | P.CNS ---
Date of Consult: 09/11/23 (consult follow up) 73-year-old gentleman with hypertension, hyperlipidemia, asthma/COPD and gout s/p TURP by Dr. Moreno about 5 years ago on finasteride for over 5 years with persistent bothersome LUTS due to BPH, family history of prostate cancer in his brother, and microscopic hematuria with history of kidney cancer in his siblings p unremarkable CTU but cystoscopy 08/29/2022 revealing significant interdigitating lateral lobar hypertrophy with mid gland fusion and mild to moderate intravesical projection associated with at least two 1 to 1.5 cm bladder calculi causing gross hematuria s/p Cystolitholopaxy and bipolar TURP 10/01/22 with improved flow and stream but bothersome urinary frequency resolved with the addition of Vesicare 5 mg daily, now with gross hematuria and clot retention of uncertain etiology. After extensive bladder irrigation earlier today around 1:45PM as documented in the prior note, I was informed the nurses were again having difficulty managing the CBI. I saw the patient who was audibly in distress due to bladder distension. The catheter was clotted off, and the nurses were unable to irrigate it. Per the patient, CBI had run dry for nearly an hour before it was resumed earlier this evening. Extensive bladder irrigation and CBI re-initiation procedure note: I attempted to irrigate the catheter and only encountered significant stringy clot but no urine return; so I deflated the balloon of the 20 cc of fluid and 30cc of air, and then I extensively irrigated his bladder, removing a large burden of formed clot, over the course of the next 1 hour, using over 4 L of irrigant fluid to ultimately achieve light pink eflux without clots despite aggressive irrigation with the bladder decompressed then slightly distended. I then refilled the balloon with ~40cc sterile H2O before resuming CBI with normal saline. With CBI progressing at a moderate drip initially, the fluid return was light pink. Over the course of the next 15 minutes of observation, the efflux of fluid and urine was essentially clear, and CBI was slowed to a slow drip and it maintained light pink to clear. Assessment: 73-year-old gentleman with hypertension, hyperlipidemia, asthma/COPD and gout s/p TURP by Dr. Moreno about 5 years ago on finasteride for over 5 years with persistent bothersome LUTS due to BPH, family history of prostate cancer in his brother, and microscopic hematuria with history of kidney cancer in his siblings p unremarkable CTU but cystoscopy 08/29/2022 revealing significant interdigitating lateral lobar hypertrophy with mid gland fusion and mild to moderate intravesical projection associated with at least two 1 to 1.5 cm bladder calculi causing gross hematuria s/p Cystolitholopaxy and bipolar TURP 10/01/22 with improved flow and stream but bothersome urinary frequency resolved with the addition of Vesicare 5 mg daily, now with gross hematuria and clot retention of uncertain etiology. -Continue CBI uninterrupted tonight, and if clear in the AM on very slow drip, we may then attempt to wean CBI ultimately to off. -If unable to wean CBI accordingly, and if patient suffers progressive anemia, operative evaluation to include cystoscopy with clot evacuation and fulguration may be required tomorrow. -NPO p MN in the event surgery required tomorrow around noon - patient may have clear liquids till 9AM as long as no significant issues with managing the CBI overnight necessitating urgent surgery before 9AM. -Antimicrobial therapy appropriate while on CBI and awaiting results of urine culture. Continue Ceftriaxone. -Will follow
[2023-09-12] MEDS ORDERED: NACL 0.9% IRR SOLN 2,000 ML IRR ONE ×2 (00:05→06:01)
[2023-09-12 03:14] LABS: Absolute Lymphocytes (CBC) 1.5 K/uL (0.7-4.9); Hematocrit 33.4 % (39.6-49.0); MCV 91.1 fL (80-100); MPV 7.8 fL (7.6-11.3); Platelets 254 thou/uL (152-406); RBC Red Blood Cell Count 3.66 M/uL (4.33-5.43)
[2023-09-12 03:32] LABS: Potassium 3.9 mEq/L (3.5-5.1)
[2023-09-12] MEDS: OXYBUTYNIN ER 5 MG TAB PO SCH (09:49)
[2023-09-12] MEDS: CEFTRIAXONE 1,000 MG in NA CHLORIDE 0.9% 50 ML IVPB SCH ×2 (09:49→20:18)
[2023-09-12] MEDS ORDERED: FENTANYL CITR 100 MCG/2 ML ONE (11:35)
[2023-09-12] MEDS ORDERED: propofoL 200 MG/20 ML VIAL IV ONE (11:35)
[2023-09-12] MEDS ORDERED: LIDOCAINE 1% MPF 5 ML VIAL ONE (11:36)
[2023-09-12] MEDS ORDERED: ONDANSETRON 4 MG/2 ML VIAL ONE (11:36)
[2023-09-12] MEDS ORDERED: Ringers Lactate 1,000 ML IV ONE (11:42)
--- NOTE | 2023-09-12 12:51 | P.CNS ---
Date of Consult: 09/12/23 73-year-old gentleman with hypertension, hyperlipidemia, asthma/COPD and gout s/p TURP by Dr. Moreno about 5 years ago on finasteride for over 5 years with persistent bothersome LUTS due to BPH, family history of prostate cancer in his brother, and microscopic hematuria with history of kidney cancer in his siblings p unremarkable CTU but cystoscopy 08/29/2022 revealing significant interdigitating lateral lobar hypertrophy with mid gland fusion and mild to moderate intravesical projection associated with at least two 1 to 1.5 cm willa dder calculi causing gross hematuria s/p Cystolitholopaxy and bipolar TURP 10/01/22 with improved flow and stream but bothersome urinary frequency resolved with the addition of Vesicare 5 mg daily, now with gross hematuria and clot retention of uncertain etiology. After extensive bladder irrigation yesterday around 1:45PM then again around 10:30PM, I saw the patient this morning who was again expressing significant discomfort due to bladder distention. There had apparently been issues with maintaining the CBI uninterrupted through the night, and there were periods of more than an hour without CBI before being reinitiated. Urethral Ramirez catheter exchange, extensive bladder irrigation and CBI re- initiation procedure note: I attempted to irrigate the catheter and only encountered significant stringy clot but no urine return; so I deflated the balloon of the 30 cc of sterile water, and then I attempted to irrigate the catheter. His bladder was so full and he was having such extensive spasms at this point, that he forcibly expelled the catheter along with a significant degree of formed clot. As a result, I prepped his genitalia, draped in standard fashion, applied a lidocaine Uro-Jet for local anesthesia, and replaced a new 24 [place]ym[place] three-way Ramirez catheter with ease. I then again extensively irrigated his bladder, removing a large burden of formed clot, over the course of the next 45 minutes, using over 4 L of irrigant fluid to ultimately achieve light pink eflux without clots despite aggressive irrigation with the bladder decompressed then slightly distended. I then refilled the balloon with ~40cc sterile H2O before resuming CBI with normal saline. With CBI progressing at a moderate drip the fluid return was light pink. H/H 11.3/33.4 Assessment and plan: 73-year-old gentleman with hypertension, hyperlipidemia, asthma/COPD and gout s/p TURP by Dr. Moreno about 5 years ago on finasteride for over 5 years with persistent bothersome LUTS due to BPH, family history of prostate cancer in his brother, and microscopic hematuria with history of kidney cancer in his siblings p unremarkable CTU but cystoscopy 08/29/2022 revealing significant interdigitating lateral lobar hypertrophy with mid gland fusion and mild to moderate intravesical projection associated with at least two 1 to 1.5 cm bladder calculi causing gross hematuria s/p Cystolitholopaxy and bipolar TURP 10/01/22 with improved flow and stream but bothersome urinary frequency resolved with the addition of Vesicare 5 mg daily, now with gross hematuria and recurrent clot retention of uncertain etiology. -Continue CBI -As patient has been n.p.o., will plan operative evaluation and management via cystoscopy with clot evacuation and fulguration today -Ceftriaxone antimicrobial therapy active
[2023-09-12] MEDS ORDERED: ROCURONIUM 50 MG/5 ML VIAL IV ONE ×2 (12:56→13:53)
[2023-09-12] MEDS ORDERED: SUGAMMADEX SODIUM 200 MG/2 ML VIAL IV ONE (14:20)
--- NOTE | 2023-09-12 14:41 | P.OP ---
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 Moreno about 5 years ago on finasteride for over 5 years with persistent bothersome LUTS due to BPH, family history of prostate cancer in his brother, and microscopic hematuria with history of kidney cancer in his siblings p unremarkable CTU but cystoscopy 08/29/2022 revealing significant interdigitating lateral lobar hypertrophy with mid gland fusion and mild to moderate intravesical projection associated with at least two 1 to 1.5 cm bladder calculi causing gross hematuria s/p Cystolitholopaxy and bipolar TURP 10/01/22 with improved flow and stream but bothersome urinary frequency resolved with the addition of Vesicare 5 mg daily, now with gross hematuria and recurrent clot retention of uncertain etiology. Procedure note: The patient was consented in the preoperative holding area before being transferred to the operative suite where general anesthesia was induced. He was receiving ceftriaxone antimicrobial therapy on the floor and pneumoboots were provided for DVT prophylaxis. He was placed in the lithotomy position, padded and secured to the table appropriately. His genitalia was prepped with Hibiclens and he was draped in standard fashion. The case was begun using the 26 [place] bipolar resectoscope sheath and a visual obturator to traverse the urethra pendulous and bulbar urethra before navigating through the striated sphincter and into the prostatic urethra where I encountered a significant burden of formed clot obscuring visualization. I thus utilized the Ellick to evacuate a significant quantity of clot in that area before I was able to further survey through what was an extensive prostatic urethral channel and ultimately into the lumen of the bladder where extensive additional clot was present. I again utilized the Ellick to evacuate much of that additional clot before I was finally able to visualize the anatomy adequately. I then surveyed throughout the prostatic urethra and identified the presence of a false passage posteriorly, likely from initial attempt at catheter placement. That false passage was somewhat extensive, extending approximately 2 to 3 cm in 2 is extended prostatic urethral length where the angle from the verumontanum into the bladder was very steep and over 70 degrees. As a result, I began to fulgurate some of the areas of active bleeding visualized, and since a lot of the adenoma was edematous in appearance and somewhat friable, likely the source of the ongoing bleeding, I began to resect some of that adenomatous regrowth and edematous tissue, fulgurating along the way in order to achieve control over some of the bleeding which was within the crevices of some of the adenomatous regrowth. As a result, I ended up essentially doing a completion TURP, and to eliminate the false passage, which would be a source for aberrant future catheter placement, I then resected the roof of the false passage and attempted to create a smooth channel by further resecting down a lip of the bladder neck to make the troughs smooth all the way down to the level of the verumontanum. Once the prostatic fossa was smooth and patent and I had removed all prostate chips visible, I again performed a careful search for bleeding with the bladder decompressed. I fulgurated any and all venous ooze as the prostate fossa was significantly oozy. I then surveyed the bladder now that I was able to visualize the mucosa adequately. The bladder was largely free of any concerning significant mucosal lesion, foreign body or stone. There were 2 small 3-5 mm sessile papillary patches of tissue in the left posterior wall of the bladder, likely catheter trauma, as they did not have a very suspicious appearance for papillary urothelial neoplasm. While I considered fulgurating those regions, the extended prostatic urethral length along with his habitus was too long for the areas of mild suspicion to even be reached via the resectoscope with the loop fully extended. As a result, after ensuring all prostate chips and debris had been removed and ensuring the prostatic fossa was completely hemostatic after decompressing it completely, I then passed a Super Stiff wire under direct vision via the resectoscope into the bladder coiling it within the true lumen of the bladder. I then utilized a hole punch to make a 24 [place] three-way Ramirez catheter into a kluti kaah tip catheter, and I passed it over the Super Stiff wire successfully into the bladder where I had clear E flux of fluid and urine and instilled 50 cc of sterile water into the balloon. I then removed the Super Stiff wire and ensured the catheter and balloon did seat in the appropriate position at the anticipated bladder neck. Once that was confirmed, I resumed CBI at slow drip and the E flux of fluid and urine was crystal clear. The patient was then taken out of the lithotomy position, awakened from general anesthesia, transferred to a stretcher, and then transferred to the recovery room in good condition. Complications: None Discharge disposition: He should maintain the urethral Ramirez catheter for a minimum of 7 to 10 days, given the significant retention and trauma associated with the recurrent clot retention and his CBI as an inpatient. As his preoperative urine culture had no growth, it would be reasonable to continue ceftriaxone for another 24 hours before transitioning him to either oral Bactrim or a fluoroquinolone for the remainder of a 10-day course of total treatment, starting 09/11/2023. He should follow-up in the urology clinic after 09/19/2023 for voiding trial, and I recommended subsequent follow-up with me for cystoscopy within the next 3 months to ensure resolution of the left posterior wall micropapillary lesions seen.
[2023-09-12] MEDS: Ringers Lactate 1,000 ML IV SCH ×2 (15:31→20:18)
[2023-09-13] MEDS: Ringers Lactate 1,000 ML IV SCH ×2 (07:00→13:27)
[2023-09-13] MEDS: CEFTRIAXONE 1,000 MG in NA CHLORIDE 0.9% 50 ML IVPB SCH ×2 (10:54→21:21)
[2023-09-13] MEDS: OXYBUTYNIN ER 5 MG TAB PO SCH (10:55)
--- NOTE | 2023-09-13 11:25 | P.PN ---
Subjective Date of Service: 09/12/23 Chief Complaint: SEVERE HEMATURIA Subjective: Improving DR. MCKAY SAW PATIENT AND TOOK CARE OF HIM IN ER. HE IS STABLE. SCOPE TO BE DONE. Review of Systems 10-point ROS is otherwise unremarkable General: Weakness Physical Examination - Vital Signs Temperature: 98.4 F Blood Pressure: 95/48 Pulse: 84 Respirations: 18 Pulse Ox (%): 92 - Physical Exam General: Acute distress, Mild distress, Obese HEENT: Atraumatic, PERRLA, EOMI Neck: Supple, JVD not distended Respiratory: Clear to auscultation bilaterally, Normal air movement Cardiovascular: Regular rate/rhythm, Normal S1 S2 Gastrointestinal: Normal bowel sounds, No tenderness Musculoskeletal: No tenderness Integumentary: No rashes Neurological: Normal speech, Normal tone, Normal affect Lymphatics: No axilla or inguinal lymphadenopathy - Studies Microbiology Data (last 24 hrs): 09/11/23 01:40 Catheterized Urine [place] Count - Final No growth. 09/11/23 01:40 Catheterized Urine - Final No growth. Medications List Reviewed: Yes Assessment And Plan - Current Problems (Diagnosis) (1) COPD (chronic obstructive pulmonary disease) Current Visit: No Status: Chronic (2) Gross hematuria Current Visit: Yes Status: Acute Plan: CONSULTED DR. MCKAY CALLED HIM AND ER ALSO CALLED. NEEDS PROCEDURE SOON PROGNOSIS GUARDED. SCOPE TO BE DONE. PLAN PER DR. MCKAY.
--- NOTE | 2023-09-13 11:28 | P.PN ---
Subjective Date of Service: 09/13/23 Chief Complaint: SEVERE HEMATURIA Subjective: Improving DR. MCKAY SAW PATIENT AND TOOK CARE OF HIM IN ER. HE IS STABLE. SCOPE TO BE DONE. HE IS ON CBI COLLECTION SEEMS TO CLEAR UP. HE IS STABLE. NO PAIN. NO WEAKNESS. Review of Systems 10-point ROS is otherwise unremarkable Physical Examination - Vital Signs Temperature: 98.4 F Blood Pressure: 95/48 Pulse: 84 Respirations: 18 Pulse Ox (%): 92 - Physical Exam General: Alert, In no apparent distress HEENT: Atraumatic, PERRLA, EOMI Neck: Supple, JVD not distended Respiratory: Clear to auscultation bilaterally, Normal air movement Cardiovascular: Regular rate/rhythm, Normal S1 S2 Gastrointestinal: Normal bowel sounds, No tenderness Musculoskeletal: No tenderness Integumentary: No rashes Neurological: Normal speech, Normal tone, Normal affect Lymphatics: No axilla or inguinal lymphadenopathy - Studies Microbiology Data (last 24 hrs): 09/11/23 01:40 Catheterized Urine [place] Count - Final No growth. 09/11/23 01:40 Catheterized Urine - Final No growth. Medications List Reviewed: Yes Assessment And Plan - Current Problems (Diagnosis) (1) COPD (chronic obstructive pulmonary disease) Current Visit: No Status: Chronic (2) Gross hematuria Current Visit: Yes Status: Acute Plan: READ DR. AYANNA MCKAY NOTE FROM 10TH. SCOPE NOTE PENDING. ETIOLOGY OF BLEEDING NOT CLEAR YET.
--- NOTE | 2023-09-13 13:30 | P.PN ---
Subjective Date of Service: 09/13/23 Primary Care Provider: Dr. Saad Rojo Chief Complaint: SEVERE HEMATURIA Subjective: Doing well No issues overnight. Tolerating liquids but no appetite yet. Physical Examination - Vital Signs Temperature: 98.4 F Blood Pressure: 95/48 Pulse: 84 Respirations: 18 Pulse Ox (%): 92 - Physical Exam General: Alert, In no apparent distress, Oriented x3, Cooperative HEENT: Atraumatic, Normocephalic, PERRLA, Mucous membr. moist/pink, Sclerae nonicteric Respiratory: Normal air movement Neurological: Normal speech Urinary: Ramirez catheter (with light pink blood-tinged urine off CBI since yesterday PM) External genitalia: No edema - Studies Medications List Reviewed: Yes Assessment And Plan - Plan 73-year-old gentleman with hypertension, hyperlipidemia, asthma/COPD and gout s/p TURP by Dr. Moreno about 5 years ago on finasteride for over 5 years with persistent bothersome LUTS due to BPH, family history of prostate cancer in his brother, and microscopic hematuria with history of kidney cancer in his siblings p unremarkable CTU but cystoscopy 08/29/2022 revealing significant interdigitating lateral lobar hypertrophy with mid gland fusion and mild to moderate intravesical projection associated with at least two 1 to 1.5 cm bladder calculi causing gross hematuria s/p Cystolitholopaxy and bipolar TURP 10/01/22 with improved flow and stream but bothersome urinary frequency resolved with the addition of Vesicare 5 mg daily, now with gross hematuria and recurrent clot retention s/p Cystoscopy with clot evacuation,Bipolar completion transurethral resection and fulguration of the prostate, Correction of prostatic urethral false passage, Complex urethral Ramirez catheter placement over a wire with findings of oozing from prostate fossa and false passage posteriorly, likely from initial difficult catheter placement in ER now stable x 22hrs with light pink urine off CBI. -Home with Ramirez to leg bad for daytime use and floor bag for nighttime use, with care and maintenance instructions to include the following: Retract the foreskin and cleanse around the catheter insertion site into the penis with hydrogen peroxide twice daily, then apply Neosporin/triple antibiotic ointment where the catheter inserts at least twice daily and as needed. -Bactrim double strength tablets twice daily for the next 7 days -Voiding trial in the urology clinic on Discharge Plan: Home Critical Care: No Time Spent Managing PTS Care (In Minutes): 30
--- NOTE | 2023-09-13 14:17 | EKG ---
Test Date: 2023-09-11 Test Time: 01:59:30 Merchandising Coordinator: LA MEASUREMENT RESULTS: Intervals: Rate: 77 MD: 174 QRSD: 90 QT: 406 QTc: 459 Hunter: P: 58 MD: 174 QRS: 63 T: 61 INTERPRETIVE STATEMENTS: Normal sinus rhythm Normal ECG Compared to ECG 09/17/2022 10:52:28 ST (T wave) deviation no longer present Electronically Signed On 09-13-23 14:09:26 MECHANICAL LABORATORY TECHNICIAN by Duc Ponce
[2023-09-13 15:33] LABS: Hematocrit 24.2 % (39.6-49.0); MPV 7.7 fL (7.6-11.3); Platelets 205 thou/uL (152-406); RBC Red Blood Cell Count 2.66 M/uL (4.33-5.43)
[2023-09-13] MEDS: MORPHINE 2 MG/ML SYR IV PRN (21:18)
[2023-09-14] MEDS: ALBUTEROL 2.5 MG/3 ML NEB SOL NEB SCH ×3 (08:20→19:28)
[2023-09-14] MEDS: IPRATROPIUM BROM 0.5MG/2.5ML NEB SCH ×3 (08:20→19:28)
[2023-09-14 08:30] LABS: Absolute Lymphocytes (CBC) 1.6 K/uL (0.7-4.9); Hematocrit 22.4 % (39.6-49.0); Lymphocytes % 17.9 % (15.3-44.8); MCV 90.8 fL (80-100); Platelets 199 thou/uL (152-406); RBC Red Blood Cell Count 2.47 M/uL (4.33-5.43)
[2023-09-14 08:42] LABS: Potassium 3.4 mEq/L (3.5-5.1)
[2023-09-14] MEDS: VILANTEROL IH SCH (09:00)
[2023-09-14] MEDS: FLUTICASONE IH SCH (09:00)
[2023-09-14] MEDS: allopurinoL 100 MG TAB PO SCH (10:22)
[2023-09-14] MEDS: OXYBUTYNIN ER 5 MG TAB PO SCH (10:22)
[2023-09-14] MEDS: CEFTRIAXONE 1,000 MG in NA CHLORIDE 0.9% 50 ML IVPB SCH ×2 (10:23→21:40)
--- NOTE | 2023-09-14 12:18 | P.PN ---
Subjective Date of Service: 09/14/23 Primary Care Provider: Dr. Saad Rojo Chief Complaint: SEVERE HEMATURIA Subjective: Improving DR. MCKAY SAW PATIENT AND TOOK CARE OF HIM IN ER. HE IS STABLE. SCOPE TO BE DONE. HE IS ON CBI COLLECTION SEEMS TO CLEAR UP. HE IS STABLE. NO PAIN. NO WEAKNESS. BLEEDING HAS STOPPED GEN WEAK. Review of Systems 10-point ROS is otherwise unremarkable General: Weakness Physical Examination - Vital Signs Temperature: 99.0 F Blood Pressure: 107/51 Pulse: 92 Respirations: 18 Pulse Ox (%): 91 - Physical Exam General: Mild distress HEENT: Atraumatic, PERRLA, EOMI Neck: Supple, JVD not distended Respiratory: Clear to auscultation bilaterally, Normal air movement Cardiovascular: Regular rate/rhythm, Normal S1 S2 Gastrointestinal: Normal bowel sounds, No tenderness Musculoskeletal: No tenderness Integumentary: No rashes Neurological: Normal speech, Normal tone, Normal affect Lymphatics: No axilla or inguinal lymphadenopathy - Studies Medications List Reviewed: Yes Assessment And Plan - Current Problems (Diagnosis) (1) COPD (chronic obstructive pulmonary disease) Current Visit: No Status: Chronic (2) Gross hematuria Current Visit: Yes Status: Acute Plan: READ DR. AYANNA MCKAY NOTE FROM 10TH. SCOPE NOTE PENDING. ETIOLOGY OF BLEEDING NOT CLEAR YET. PT CONSULT HOMEHEALTH, WEAKNESS. (3) Severe anemia Current Visit: Yes Status: Acute Plan: ACUTE BLEED WEAK HG 7.6 GIVE ONE UNIT CHECK AGAIN, IF LOWER THAN 8 , GIVE ONE MORE. (4) Hypokalemia Current Visit: Yes Status: Acute Plan: FROM ACUTE ILLNESS BLODD LOSS REPLACE K
[2023-09-14] MEDS ORDERED: NA CHLORIDE 0.9% 250 ML ONE (15:00)
[2023-09-14] MEDS: ACETAMINOPHEN 325 MG TABLET PO PRN (17:40)
[2023-09-14 21:08] LABS: Hematocrit 26.3 % (39.6-49.0)
[2023-09-14] MEDS ORDERED: GUAIFENESIN/DM 5 ML UCUP PO PRN (21:30)
[2023-09-14] MEDS: LORATADINE 10 MG TAB PO SCH (21:41)
[2023-09-15] MEDS: ALBUTEROL 2.5 MG/3 ML NEB SOL NEB SCH ×4 (00:39→19:20)
[2023-09-15] MEDS: IPRATROPIUM BROM 0.5MG/2.5ML NEB SCH ×4 (00:39→19:20)
[2023-09-15] MEDS: OXYBUTYNIN ER 5 MG TAB PO SCH (08:49)
[2023-09-15] MEDS: CEFTRIAXONE 1,000 MG in NA CHLORIDE 0.9% 50 ML IVPB SCH ×2 (08:49→20:43)
[2023-09-15] MEDS: POTASSIUM CL SA 10 MEQ TAB PO SCH (08:52)
[2023-09-15] MEDS: allopurinoL 100 MG TAB PO SCH (08:58)
[2023-09-15] MEDS: VILANTEROL IH SCH (09:00)
[2023-09-15] MEDS: FLUTICASONE IH SCH (09:00)
--- NOTE | 2023-09-15 12:51 | P.DS ---
Admission Date: 09/11/23 Discharge Date: 09/15/23 Primary Care Provider: Dr. Saad Rojo Disposition: ROUTINE DISCHARGE Discharge Condition: GOOD Reason for Admission: SEVERE HEMATURIA - Problems (1) COPD (chronic obstructive pulmonary disease) Current Visit: No Status: Chronic (2) Gross hematuria Current Visit: Yes Status: Acute (3) Severe anemia Current Visit: Yes Status: Acute (4) Hypokalemia Current Visit: Yes Status: Acute Brief History of Present Illness: Farhan GRIDER IS A PATIENT WITH COPD AND COMES WITH SUDDEN SEVREE HEMATURIA. THERE IS NO PAIN. I HAVE CALLED DR. ALBRECHT AND HE WILL GET PROCEDURE SOON. Hospital Course: AVA CAME WITH SEVERE HEMATURIA. DR. ALBRECHT DID CYSTOSCOPY. FOUND NO ACUTE BLEEDING BUT A LARGE PROSTATE FOSSA. HE IS STABLE. HE NEEDED ONE UNIT OF BLOOD. HE HAS SOME CONGESTION AND WILL RESUME HIS ASTHMA MEDS. HE IS STABLE FOR DC. I SENT MEDS TO PHARMACY FROM OFFICE. ALBUTEROL AND SYMBICORT. Vital Signs/Physical Exam: Temp Pulse Resp BP Pulse Ox 98.0 F 76 17 129/53 L 95 09/15/23 12:00 09/15/23 12:00 09/15/23 12:00 09/15/23 12:00 09/15/23 12:00 Laboratory Data at Discharge: WBC 8.90 thou/uL (4.3-10.9) 09/14/23 08:23 Hgb 9.1 g/dL (13.6-17.9) L D 09/14/23 20:55 Hct Cancelled 09/14/23 Unknown Plt Count 199 thou/uL (152-406) 09/14/23 08:23 PT 12.8 SECONDS (9.5-12.5) H 09/11/23 01:38 INR 1.16 09/11/23 01:38 Sodium 139 mEq/L (136-145) 09/14/23 08:23 Potassium 3.4 mEq/L (3.5-5.1) L 09/14/23 08:23 BUN 14 mg/dL (7-18) 09/14/23 08:23 Creatinine 0.67 mg/dL (0.70-1.30) L 09/14/23 08:23 Glucose 116 mg/dL (74-106) H 09/14/23 08:23 Magnesium 1.9 mg/dL (1.6-2.4) 09/11/23 01:38 Total Bilirubin 0.5 mg/dL (0.2-1.0) 09/11/23 01:38 AST 19 U/L (15-37) 09/11/23 01:38 ALT 24 U/L (16-61) 09/11/23 01:38 Alkaline Phosphatase 106 U/L (45-117) 09/11/23 01:38 Home Medications: Finasteride [Proscar*] 5 mg PO DAILY 12/08/16 Allopurinol 100 mg PO DAILY 09/17/22 Diosmin Complex No.1 [Vasculera] 630 mg PO DAILY 09/17/22 Fluticasone/Vilanterol [Breo Ellipta 200-25 Mcg Inhalr] 1 puff IH DAILY 09/17/22 Levocetirizine Dihydrochloride [24Hr Allergy Relief] 5 mg PO DAILY 09/17/22 Turmeric Root/Adela Root Ext [Turmeric Curcumin-Adela Gummy] 2 each PO DAILY 09/17/22 Codeine/APAP [Tylenol #3*] 1 tab PO Q6HP PRN #12 tab 10/01/22 oxyBUTYnin chloride [Ditropan Xl] 5 mg PO DAILY PRN #30 tab 10/01/22 Apremilast [Otezla] 30 mg PO BID 09/13/23 Smz./Tmp. [Bactrim Ds 800 MG/160 MG*] 1 tab PO BID #14 tab 09/13/23 oxyBUTYnin chloride [Ditropan Xl*] 10 mg PO DAILY #4 tab.sa 09/13/23 New Medications: Smz./Tmp. [Bactrim Ds 800 MG/160 MG*] 1 tab PO BID #14 tab oxyBUTYnin chloride [Ditropan Xl*] 10 mg PO DAILY #4 tab.sa Physician Discharge Instructions: Please care for the urethral catheter by cleansing around where the catheter inserts into the penis using hydrogen peroxide, after retracting the foreskin, at least twice daily. Afterward, apply Neosporin/triple antibiotic ointment right around where the catheter inserts into the penis to keep it lubricated at least twice daily and as needed. Drink plenty of fluids to keep from any blood in the urine causing clogging of the urethral catheter. I have sent a prescription for trimethoprim sulfamethoxazole/Bactrim, which is an antibiotic. I would like for you to take this for the next 7 days. It is prescribed twice daily. We will plan to remove your urethral Ramirez catheter next in the urology clinic. Please contact my office to arrange that with the nurses. Notify me if you develop any fever, temperature greater than 100.4 Fahrenheit, intractable nausea or vomiting, increasing pain not controlled by pain medications, or other unusual signs or symptoms. Also, you should notify me via my office at [phone] if the blood in the urine is more than see-through/translucent pink. If it becomes bright red and afa-hfa-hzriiac/nontranslucent and thick like tomato juice, notify me immediately. You should connect the urethral Ramirez catheter to a leg bag when you are walking around during the day, if you prefer, but when resting for prolonged periods of time or in bed at night, you should connected to a floor bag. Keep the catheter connected to the securing device on your thigh to prevent it from being accidentally pulled and causing traction. All the best! Real Albrecht MD PhD Urologist Diet: AHA Activity: No lifting more than 10 lbs Followup: Taurus Rojo MD [Primary Care Provider] - Real Albrecht [ACTIVE - CAN ADMIT] -
[2023-09-16] MEDS: ALBUTEROL 2.5 MG/3 ML NEB SOL NEB SCH ×2 (01:35→08:24)
[2023-09-16] MEDS: IPRATROPIUM BROM 0.5MG/2.5ML NEB SCH ×2 (01:35→08:24)
[2023-09-16 03:21] VITALS: O2SAT 93
[2023-09-16 03:31] LABS: Absolute Lymphocytes (CBC) 1.9 K/uL (0.7-4.9); Hematocrit 27.4 % (39.6-49.0); Lymphocytes % 18.5 % (15.3-44.8); MPV 7.6 fL (7.6-11.3); Platelets 237 thou/uL (152-406); RBC Red Blood Cell Count 3.04 M/uL (4.33-5.43)
[2023-09-16 04:02] LABS: Potassium 3.8 mEq/L (3.5-5.1)
[2023-09-16] MEDS: FLUTICASONE IH SCH (09:00)
[2023-09-16] MEDS: VILANTEROL IH SCH (09:00)
[2023-09-16 09:16] VITALS: TEMP 98
[2023-09-16] MEDS: CEFTRIAXONE 1,000 MG in NA CHLORIDE 0.9% 50 ML IVPB SCH (09:45)
[2023-09-16] MEDS: LORATADINE 10 MG TAB PO SCH (09:56)
[2023-09-16] MEDS: allopurinoL 100 MG TAB PO SCH (09:56)
[2023-09-16] MEDS: OXYBUTYNIN ER 5 MG TAB PO SCH (09:56)
[2023-09-16] MEDS: POTASSIUM CL SA 10 MEQ TAB PO SCH (09:56)
[2023-09-16] MEDS: ACETAMINOPHEN 325 MG TABLET PO PRN (10:37)
[2023-09-16 11:41] VITALS: BP 114/66
== END 2023-09-16 12:55 | disposition home health service (06) | DRG 666 ==
LOC: ER 00:49 → ERHOLD 04:16 → 2ND 17:13
PROVIDERS: ADMIT Internal Medicine; ATTEND Internal Medicine
PROC: 0T9B70Z Drainage of Bladder with Drainage Device, Via Natural or Artificial Opening (ICD-10-PCS; 2023-09-11)
PROC: 0V508ZZ Destruction of Prostate, Via Natural or Artificial Opening Endoscopic (ICD-10-PCS; principal; 2023-09-12 12:00)
PROC: 30233N1 Transfusion of Nonautologous Red Blood Cells into Peripheral Vein, Percutaneous Approach (ICD-10-PCS; 2023-09-14)
DX: N39.0 Urinary tract infection, site not specified (principal); D62 Acute posthemorrhagic anemia; R31.0 Gross hematuria; E78.5 Hyperlipidemia, unspecified; I10 Essential (primary) hypertension; E87.6 Hypokalemia; M10.9 Gout, unspecified; N32.9 Bladder disorder, unspecified; M06.9 Rheumatoid arthritis, unspecified; J44.9 Chronic obstructive pulmonary disease, unspecified; N40.1 Benign prostatic hyperplasia with lower urinary tract symptoms; R33.8 Other retention of urine; Z88.8 Allergy status to other drugs, medicaments and biological substances; Z79.899 Other long term (current) drug therapy
CPT/HCPCS: 36415; 51700; 71045; 74176; 76377; 80048; 80076; 81001; 82947; 83735; 83880; 84484; 85014; 85018; 85025; 85027; 85610; 86850; 86900; 86901; 86920; 87086; 87088; 88305; 93005; 96365; 96366; 96375; 97112; 97116; 97161; 97530; 99285; J0696; J2001; J2270; J2405; J2704; J3010; J7030; J7050; J7120; J7613; J7644; P9016

== ENCOUNTER 2024-11-25 15:50 | Inpatient (IN) | payer OTHER ==
[2024-11-25] MEDS ORDERED: ALBUTEROL 2.5 MG/3 ML NEB SOL ONE (16:53)
[2024-11-25] MEDS ORDERED: IPRATROPIUM BROM 0.5MG/2.5ML ONE (16:53)
[2024-11-25] MEDS ORDERED: METHYLPREDNISOLONE 125 MG INJ ONE (16:53)
[2024-11-25 16:56] LABS: Absolute Basophils 0.1 K/uL (0-0.5); Absolute Eosinophils 0.1 K/uL (0-0.5); Absolute Monocytes 2.4 K/uL (0.1-1.3); Absolute Neutrophil 14.8 K/uL (1.8-8.0); Basophils % 0.4 % (0-1.3); Eosinophils % 0.3 % (0-4.4); Hematocrit 48.5 % (39.6-49.0); Lymphocytes % 5.5 % (15.3-44.8); MCH 29.9 pg (27.0-35.0); MCHC 32.9 g/dL (32.0-36.0); MCV 90.8 fL (80-100); MPV 7.9 fL (7.6-11.3); Neutrophils % 80.8 % (41.7-73.7); Platelets 297 thou/uL (152-406); RBC Red Blood Cell Count 5.34 M/uL (4.33-5.43); Red Cell Distribution Width 15.2 % (12.1-15.2)
[2024-11-25 16:57] LABS: PT Prothrombin Time 14.8 SECONDS (9.4-12.5); Protime INR 1.41
[2024-11-25 17:07] LABS: SARS-CoV-2 Antigen CONTROL BLUE LINE VIS/BG OK; SARS-CoV-2 Antigen Rapid Res Negative (Negative)
[2024-11-25 17:18] LABS: Albumin 2.7 g/dL (3.4-5.0); Albumin/Globulin Ratio 0.5 (1.1-1.8); Anion Gap 9.8 mEq/L (5.0-15.0); Bilirubin Direct 0.7 mg/dL (0-0.2); Bilirubin Total 1.7 mg/dL (0.2-1.0); Globulin 5.6 g/dL (2.3-3.5); Potassium 4.8 mEq/L (3.5-5.1); Protein, Total 8.3 g/dL (6.4-8.2); Troponin High Sensitivity 6.3 pg/mL (<58.9)
--- NOTE | 2024-11-25 17:24 | RAD REPORT ---
EXAMINATION: ONE VIEW CHEST XR CLINICAL INDICATION: Male, 74 years old.,Cough;SOB TECHNIQUE: Frontal chest projection is submitted. Examination is limited by patient positioning and t echnique. COMPARISON: 09/21/2024 FINDINGS: The lungs are well inflated and clear apart from left basilar streaky atelectasis. No pneumothorax o r sizable effusion. The heart is normal in size. Mediastinal contours are unremarkable. IMPRESSION: No acute intrathoracic abnormalities.
[2024-11-25 18:13] LABS: Arterial Blood Carboxyhemoglob 1.3 % (0-1.5); Blood Gas Oxyhemoglobin 87.8 % (94-97); Blood O2 Saturation 90.6 % (92-98.5)
[2024-11-25] MEDS ORDERED: NA CHLORIDE 0.9% 500 ML ONE (18:55)
--- NOTE | 2024-11-25 18:59 | EDPHYS ---
Physician Documentation [facility] Name: Esvin Díaz Age: 74 yrs Sex: Male : 1950 Arrival Date: 11/25/2024 Time: 15:50 Bed 24 Private MD: ED Physician Caesar Perez HPI: 11/25 16:30 This 74 yrs old Male presents to ER via Ambulatory with complaints of cp Breathing Difficulty, Cough. 16:30 The patient has shortness of breath at rest. Onset: The symptoms/episode began/occurred cp 1.5 week(s) ago. Duration: The symptoms are continuous, and are steadily getting worse. Associated signs and symptoms: Pertinent positives: non-productive cough, Pertinent negatives: chest pain, diaphoresis, dizziness, fever, vomiting. Severity of symptoms: in the emergency department the symptoms are unchanged despite home interventions. Historical: - Allergies: 16:19 Isosorbide Mononitrate (unrinary retention); ld1 - PMHx: 16:19 COPD; Hypertension; BPH; Rheumatoid Arthritis; ld1 - PSHx: 16:19 TURP; ld1 - Immunization history:: Adult Immunizations up to date. - Infectious Disease History:: Denies. - Social history:: Smoking status: Patient denies any tobacco usage or history of. ROS: 16:35 Constitutional: Negative for body aches, chills, fever, poor PO intake, cp 16:35 Eyes: Negative for injury, pain, redness, and discharge, cp 16:35 ENT: Negative for drainage from ear(s), ear pain, sore throat, difficulty swallowing, difficulty handling secretions, 16:35 Cardiovascular: Negative for chest pain, edema, palpitations, 16:35 Respiratory: Positive for cough, with no reported sputum, shortness of breath, at rest. 16:35 Abdomen/GI: Negative for abdominal pain, vomiting, diarrhea, constipation, 16:35 Skin: Negative for cellulitis, rash, 16:35 Neuro: Negative for altered mental status, dizziness, numbness, syncope, weakness, 16:35 All other systems are negative, Exam: 16:40 Constitutional: The patient appears in no acute distress, alert, awake, cp non-diaphoretic, non-toxic, well developed, well nourished, 16:40 Head/Face: Normocephalic, atraumatic. cp 16:40 Eyes: Periorbital structures: appear normal, Pupils: equal, round, and reactive to light and accomodation, Extraocular movements: intact throughout, Conjunctiva: normal, no exudate, no injection, Sclera: no appreciated abnormality, Lids and lashes: appear normal, bilaterally, 16:40 ENT: External ear(s): are unremarkable, Nose: is normal, Mouth: Lips: moist, Oral mucosa: pink and intact, moist, Posterior pharynx: Airway: no evidence of obstruction, patent, erythema, is not appreciated, exudate, is not appreciated, 16:40 Neck: ROM/movement: is normal, is supple, without pain, no range of motions limitations, 16:40 Chest/axilla: Inspection: normal, 16:40 Cardiovascular: Rate: tachycardic, Rhythm: regular, Edema: is not appreciated, JVD: is not appreciated, 16:40 Respiratory: the patient does not display signs of respiratory distress, Respirations: labored breathing, that is mild, Breath sounds: decreased breath sounds, that are moderate, throughout, stridor, is not appreciated, wheezing: is not appreciated, 16:40 Abdomen/GI: Inspection: abdomen appears normal, Palpation: abdomen is soft and non-tender, in all quadrants, 16:40 Back: pain, is absent, ROM is normal, 16:40 Skin: cellulitis, is not appreciated, no rash present. 16:40 Neuro: Orientation: to person, place \T\ time. Mentation: is normal, Motor: moves all fours, strength is normal, Sensation: is normal, Gait: is steady, 17:07 ECG was reviewed by the Attending Physician. cp Vital Signs: 16:17 Pulse 108; Resp 19; Temp 97.2; Height 5 ft. 10 in. ; Pain 0/10; ld1 16:19 Pulse Ox 85% on R/A; ld1 16:19 Pulse 99; ld1 16:21 Weight 114.76 kg; ld1 16:21 BP 104 / 69; ld1 17:50 BP 108 / 50; Pulse 97; Resp 15; Pulse Ox 91% on 6 lpm NC; jb4 19:00 BP 105 / 59; Pulse 84; Resp 16; Pulse Ox 99% on 4 lpm NC; jb4 20:49 BP 107 / 67; Pulse 78; Resp 16; Pulse Ox 97% on 4 lpm NC; jb4 16:17 Pain Scale: Adult ld1 MDM: 16:20 Medical Screening Exam initiated cp 17:00 Differential diagnosis: asthma, CHF exacerbation, Chronic Obstructive Pulmonary Disease cp pneumonia, Pneumothorax pulmonary edema, Pulmonary Embolism Sepsis. 19:00 Data reviewed: vital signs, nurses notes, lab test result(s), EKG, radiologic studies, cp plain films, and as a result, I will admit patient. 19:00 Antibiotic administration: Levaquin given. Management of patient was discussed with the cp following: Hospitalist: DR Fish will admit after discussion. Independent interpretation of the following test(s) in the Emergency Department EKG: See my EKG interpretation above. Care significantly affected by the following chronic conditions: Hypertension, Chronic Obstructive Pulmonary Disease. Counseling: I had a detailed discussion with the patient and/or guardian regarding the historical points, exam findings, and any diagnostic results supporting the discharge/admit diagnosis, lab results, radiology results, the need for further work-up and treatment in the hospital. Response to treatment: improved, and as a result, I will admit patient. 11/25 16:22 Order name: Basic Metabolic Panel; Complete Time: 17:36 cp 11/25 18:41 Interpretation: Normal except: NA 131; GLUC 124; BUN 48; CRE 2.31; GFR 29. 11/25 16:22 Order name: CBC with Diff; Complete Time: 17:36 cp 11/25 16:22 Order name: LFT's; Complete Time: 17:36 cp 11/25 16:22 Order name: Magnesium; Complete Time: 17:36 cp 11/25 16:22 Order name: NT PRO-BNP; Complete Time: 17:36 cp 11/25 16:22 Order name: PT-INR; Complete Time: 17:36 cp 11/25 16:22 Order name: Troponin HS; Complete Time: 17:36 cp 11/25 16:22 Order name: Urinalysis W/Microscopic; Complete Time: 19:39 cp 11/25 16:23 Order name: Influenza Screen (a \T\ B); Complete Time: 17:36 cp 11/25 16:23 Order name: SARS RAPID; Complete Time: 17:36 cp 11/25 16:23 Order name: RSV; Complete Time: 17:36 cp 11/25 17:46 Order name: ABG; Complete Time: 18:40 cp 11/25 18:40 Interpretation: Normal except: ABGPO2 66.0; ABGSO2 90.6; OTEH9QW 87.8; ABGMETHB 1.8. cp 11/25 18:56 Order name: Blood Culture Adult (2); Complete Time: 19:39 cp 11/25 18:56 Order name: Lactate w/ 2H reflex if indic.; Complete Time: 19:39 cp 11/25 19:26 Order name: Urinalysis w/ reflexes EDMN 11/25 19:26 Order name: CBC with Automated Diff EDMS 11/25 19:26 Order name: CBC with Automated Diff; Complete Time: 19:39 EDMS 11/25 19:26 Order name: Comprehensive Metabolic Panel EDMN 11/25 19:26 Order name: Comprehensive Metabolic Panel; Complete Time: 19:39 EDMS 11/25 16:22 Order name: XRAY Chest (1 view); Complete Time: 17:36 cp 11/25 16:22 Order name: EKG; Complete Time: 16:22 cp 11/25 16:22 Order name: Cardiac monitoring; Complete Time: 17:04 cp 11/25 16:22 Order name: EKG - Nurse/Tech; Complete Time: 17:04 cp 11/25 16:22 Order name: IV Saline Lock; Complete Time: 16:43 cp 11/25 16:22 Order name: Labs collected and sent; Complete Time: 16:43 cp 11/25 16:22 Order name: O2 Per Protocol; Complete Time: 16:43 cp 11/25 16:22 Order name: O2 Sat Monitoring; Complete Time: 16:43 cp EC:07 Rate is 90 beats/min. Rhythm is regular. SD interval is normal. QRS interval is normal. cp QT interval is normal. T waves are Inverted in lead aVR. Interpreted by me. Reviewed by me. Administered Medications: 17:04 Drug: MethylPrednisoLONE IVP 125 mg IVP once Route: IVP; Site: right antecubital; 4 19:09 Follow up: Response: No adverse reaction; Marked relief of symptoms jb4 17:04 Drug: DuoNeb Nebulize (2.5 mg - 0.5 mg) 3 ml Nebulizer once Route: Nebulizer; 4 19:09 Follow up: Response: No adverse reaction; Marked relief of symptoms jb4 18:57 Drug: NS 0.9% IV 500 ml 500 ml IV at 1 bolus once; to be given as a bolus over 60 jb4 minutes Volume: 500 ml; Route: IV; Rate: 1 bolus; Site: right antecubital; 20:34 Drug: levofloxacin IVPB 500 mg 100 ml IVPB once over 60 mins Volume: 100 ml; Route: jb4 IVPB; Infused Over: 60 mins; Site: right antecubital; Disposition: 11/26 07:47 Co-signature as Attending Physician, Caesar Perez MD I reviewed the patient's care rt provided by the Advanced Practice Provider and agree with the diagnosis and treatment plan. Disposition Summary: 11/25/24 18:59 Hospitalization Ordered Notes: Hospitalization Status: Inpatient Admission cp Provider: Marc Fish cp Location: Telemetry/[facility] (Inpatient) cp Condition: Stable cp Problem: new cp Symptoms: have improved cp Bed/Room Type: Standard cp Room Assignment: 213(11/25/24 19:28) vk Diagnosis - Unspecified kidney failure cp - COPD/ Chronic obstructive pulmonary disease, unspecified cp - Hypoxemia cp Forms: - Medication Reconciliation Form cp - SBAR form cp - Leadership Thank You Letter cp Signatures: Dispatcher [employer] EDWilliam Horne PA PA cp Augustin Townsend RN RN jb4 Hemalatha Conteh RN RN ld1 Caesar Perez MD MD rt Rena Quiñones Corrections: (The following items were deleted from the chart) 11/25 19:28 18:59 cp vk
--- NOTE | 2024-11-25 18:59 | ER ---
Nurse's Notes [facility] Name: Esvin Díaz Age: 74 yrs Sex: Male : 1950 Arrival Date: 11/25/2024 Time: 15:50 Bed 24 Private MD: Diagnosis: Unspecified kidney failure;COPD/ Chronic obstructive pulmonary disease, unspecified;Hypoxemia Presentation: 11/25 16:17 Chief complaint: Patient states: wheezing, shortness of breath X 1-2 weeks. Coronavirus ld1 screen: At this time, the client does not indicate any symptoms associated with coronavirus-19. Ebola Screen: No symptoms or risks identified at this time. Initial Sepsis Screen:. Risk Assessment: Do you want to hurt yourself or someone else? Patient reports no desire to harm self or others. Onset of symptoms was November 25, 2024 at 16:19. 16:17 Method Of Arrival: Ambulatory ld1 16:17 Acuity: NATACHA 3 ld1 Triage Assessment: 16:20 General: Appears in no apparent distress. comfortable, Behavior is calm, cooperative, ld1 appropriate for age. Pain: Denies pain. EENT: No signs and/or symptoms were reported regarding the EENT system. Neuro: Level of Consciousness is awake, alert, obeys commands, Oriented to person, place, time, situation. Cardiovascular: Capillary refill < 3 seconds Patient's skin is warm and dry. Respiratory: Reports shortness of breath at rest on exertion Airway is patent Respiratory effort is even, unlabored, Onset: The symptoms/episode began/occurred yesterday, the patient has moderate shortness of breath. GI: Abdomen is round non-distended. : No signs and/or symptoms were reported regarding the genitourinary system. Derm: No signs and/or symptoms reported regarding the dermatologic system. Musculoskeletal: No signs and/or symptoms reported regarding the musculoskeletal system. Historical: - Allergies: 16:19 Isosorbide Mononitrate (unrinary retention); ld1 - PMHx: 16:19 COPD; Hypertension; BPH; Rheumatoid Arthritis; ld1 - PSHx: 16:19 TURP; ld1 - Immunization history:: Adult Immunizations up to date. - Infectious Disease History:: Denies. - Social history:: Smoking status: Patient denies any tobacco usage or history of. Screenin:34 [facility] ED Fall Risk Assessment (Adult) History of falling in the last 3 months, jb4 including since admission No falls in past 3 months (0 pts) Confusion or Disorientation No (0 pts) Intoxicated or Sedated No (0 pts) Impaired Gait No (0 pts) Mobility Assist Device Used No (0 pt) Altered Elimination No (0 pt) Score/Fall Risk Level 0 - 2 = Low Risk Oriented to surroundings, Maintained a safe environment. Abuse screen: Denies threats or abuse. Nutritional screening: No deficits noted. Tuberculosis screening: No symptoms or risk factors identified. Assessment: 16:22 General: Appears in no apparent distress. comfortable, Behavior is calm, cooperative, jb4 appropriate for age. Pain: Denies pain. Neuro: Level of Consciousness is awake, alert, obeys commands, Oriented to person, place, time, situation. Cardiovascular: Patient's skin is warm and dry. Rhythm is sinus rhythm. Respiratory: Airway is patent Respiratory effort is even, unlabored, shallow, Respiratory pattern is regular, symmetrical, Breath sounds are clear in left upper lobe and left lower lobe Breath sounds are diminished in right upper lobe, right middle lobe and right lower lobe Denies shortness of breath at rest. Derm: Skin is intact, Skin is dry, Skin is pale, Skin temperature is warm. Musculoskeletal: Circulation, motion, and sensation intact. Range of motion: intact in all extremities. 17:34 Reassessment: Patient appears in no apparent distress at this time. Patient and/or jb4 family updated on plan of care and expected duration. Pain level reassessed. Patient is alert, oriented x 3, equal unlabored respirations, skin warm/dry/pink. 19:00 Reassessment: Patient appears in no apparent distress at this time. Patient and/or jb4 family updated on plan of care and expected duration. Pain level reassessed. Patient is alert, oriented x 3, equal unlabored respirations, skin warm/dry/pink. 20:35 Reassessment: Patient appears in no apparent distress at this time. Patient and/or jb4 family updated on plan of care and expected duration. Pain level reassessed. Patient is alert, oriented x 3, equal unlabored respirations, skin warm/dry/pink. Vital Signs: 16:17 Pulse 108; Resp 19; Temp 97.2; Height 5 ft. 10 in. ; Pain 0/10; ld1 16:19 Pulse Ox 85% on R/A; ld1 16:19 Pulse 99; ld1 16:21 Weight 114.76 kg; ld1 16:21 BP 104 / 69; ld1 17:50 BP 108 / 50; Pulse 97; Resp 15; Pulse Ox 91% on 6 lpm NC; jb4 19:00 BP 105 / 59; Pulse 84; Resp 16; Pulse Ox 99% on 4 lpm NC; jb4 20:49 BP 107 / 67; Pulse 78; Resp 16; Pulse Ox 97% on 4 lpm NC; jb4 16:17 Pain Scale: Adult ld1 ED Course: 15:55 Patient arrived in ED. sj2 16:03 William Lozoya PA is PHCP. cp 16:03 Caesar Perez MD is Attending Physician. cp 16:19 Triage completed. ld1 16:20 Arm band placed on right wrist. ld1 16:40 Inserted saline lock: 18 gauge in right antecubital area, using aseptic technique. jb4 Blood collected. 16:43 Influenza Screen (a \T\ B) Sent. jb4 16:43 RSV Sent. jb4 16:43 SARS RAPID Sent. jb4 16:43 Basic Metabolic Panel Sent. jb4 16:43 CBC with Diff Sent. jb4 16:43 LFT's Sent. jb4 16:44 NT PRO-BNP Sent. jb4 16:44 PT-INR Sent. jb4 16:44 Troponin HS Sent. jb4 17:18 XRAY Chest (1 view) In Process Unspecified. EDMS 17:34 Patient has correct armband on for positive identification. Placed in gown. Bed in low jb4 position. Call light in reach. Side rails up X 1. Provided Education on: plan of care. 17:34 No provider procedures requiring assistance completed. jb4 18:58 Marc Fish MD is Hospitalizing Provider. cp 19:10 Missed attempt(s): 20 gauge in right forearm. Bleeding controlled, band aid applied, jb4 catheter tip intact. 19:25 Inserted saline lock: 18 gauge in left antecubital area, using aseptic technique. Blood jb4 collected. 20:35 Patient admitted, IV remains in place. jb4 Administered Medications: 17:04 Drug: MethylPrednisoLONE IVP 125 mg IVP once Route: IVP; Site: right antecubital; jb4 19:09 Follow up: Response: No adverse reaction; Marked relief of symptoms jb4 17:04 Drug: DuoNeb Nebulize (2.5 mg - 0.5 mg) 3 ml Nebulizer once Route: Nebulizer; jb4 19:09 Follow up: Response: No adverse reaction; Marked relief of symptoms jb4 18:57 Drug: NS 0.9% IV 500 ml 500 ml IV at 1 bolus once; to be given as a bolus over 60 jb4 minutes Volume: 500 ml; Route: IV; Rate: 1 bolus; Site: right antecubital; 20:34 Drug: levofloxacin IVPB 500 mg 100 ml IVPB once over 60 mins Volume: 100 ml; Route: jb4 IVPB; Infused Over: 60 mins; Site: right antecubital; Outcome: 18:59 Decision to Hospitalize by Provider. twin 22:27 Patient left the ED. vk Signatures: Dispatcher [employer] EDMS William Lozoya PA PA cp Bryson, James, RN RN jb4 Hemalatha Conteh RN RN [email or web address] Rena Quiñones Sonceria sj2 Corrections: (The following items were deleted from the chart) 17:50 16:22 Respiratory: Airway is patent Respiratory effort is even, unlabored, Respiratory jb4 pattern is regular, symmetrical, Denies shortness of breath at rest, jb4
--- NOTE | 2024-11-25 19:20 | P.HP ---
Certification for Inpatient Patient admitted to: Inpatient With expected LOS: >2 Midnights Practitioner: I am a practitioner with admitting privileges, knowledge of patient current condition, hospital course, and medical plan of care. Services: Services provided to patient in accordance with Admission requirements found in Title 42 Section 412.3 of the Code of Federal Regulations Patient History Date of Service: 11/25/24 Reason for admission: SOB History of Present Illness: 73-year-old male with past medical history of hypertension, hyperlipidemia, asthma/COPD and gout , BPH s/p TURP, rheumatoid arthritis Brought to ER with shortness of breath and cough which has been going on for the last 3 days and has been progressively getting worse and was brought to ER. Denies any fever or chills. Cough is productive with mucoid expectoration. No nausea vomiting or diarrhea. Patient was assessed in the ER and is admitted for further management of acute COPD exacerbation Allergies isosorbide Adverse Reaction (Verified 10/01/22 07:03) URINARY RETENTION Home medications list reviewed: Yes Home Medications: Finasteride [Proscar*] 5 mg PO DAILY 12/08/16 Allopurinol 100 mg PO DAILY 09/17/22 Diosmin Complex No.1 [Vasculera] 630 mg PO DAILY 09/17/22 Fluticasone/Vilanterol [Breo Ellipta 200-25 Mcg Inhalr] 1 puff IH DAILY 09/17/22 Levocetirizine Dihydrochloride [24Hr Allergy Relief] 5 mg PO DAILY 09/17/22 Turmeric Root/Adela Root Ext [Turmeric Curcumin-Adela Gummy] 2 each PO DAILY 09/17/22 Codeine/APAP [Tylenol #3*] 1 tab PO Q6HP PRN #12 tab 10/01/22 oxyBUTYnin chloride [Ditropan Xl] 5 mg PO DAILY PRN #30 tab 10/01/22 Apremilast [Otezla] 30 mg PO BID 09/13/23 Smz./Tmp. [Bactrim Ds 800 MG/160 MG*] 1 tab PO BID #14 tab 09/13/23 oxyBUTYnin chloride [Ditropan Xl*] 10 mg PO DAILY #4 tab.sa 09/13/23 - Past Medical/Surgical History Diabetic: No Past Medical History: Reviewed- Non-Contributory -: COPD -: BPH -: RA -: allergies -: HDL -: Sleep apnea noncompliant with CPAP Past Surgical History: Reviewed- Non-Contributory -: ANKLE AND KNEE LEFT LEG -: Lumbar Puncture - Family History Mother -: Heart disease, Other (see notes) Notes: COPD, ARTHRITIS, OSTEOPEROSIS - Social History Smoking Status: Former smoker Alcohol use: No CD- Drugs: No Caffeine use: No Review of Systems 10-point ROS is otherwise unremarkable Physical Examination - Vital Signs Temperature: 98.2 F Blood Pressure: 126/66 Pulse: 96 Respirations: 18 Pulse Ox (%): 94 - Physical Exam General: Alert, Oriented x3, Mild distress HEENT: Atraumatic, Normocephalic Neck: Supple Respiratory: Normal air movement, Crackles/rales, Expiratory wheezes Cardiovascular: Normal pulses, Regular rate/rhythm, Normal S1 S2 Capillary refill: <2 Seconds Gastrointestinal: Soft and benign, W/out hepatosplenomegaly Musculoskeletal: No clubbing, No swelling Integumentary: No rashes, No breakdown Neurological: Normal speech, Normal strength at 5/5 x4 extr, Cranial nerves 3-12 intact Lymphatics: No axilla or inguinal lymphadenopathy - Studies Laboratory Data (last 24 hrs) 11/25/24 11/25/24 11/25/24 16:40 16:40 16:40 WBC 18.30 H Hgb 16.0 Hct 48.5 Plt Count 297 PT 14.8 H INR 1.41 Sodium 131 L Potassium 4.8 BUN 48 H Creatinine 2.31 H Glucose 124 H Magnesium 2.0 Total Bilirubin 1.7 H AST 20 ALT 18 Alkaline Phosphatase 91 Microbiology Data (last 24 hrs): 11/25/24 16:40 Nasopharnyx Respiratory Syncytial Virus Ag Scrn - Final 11/25/24 16:40 Nasopharnyx Influenza Type A Antigen Screen - Final 11/25/24 16:40 Nasopharnyx Influenza Type B Antigen Screen - Final Assessment and Plan - Plan COPD exacerbation Monitor closely on telemetry Started on bronchodilators Steroids added ABG findings noted Chest x-ray findings noted Leukocytosis Monitor CBC in AM Acute hypoxic respiratory failure Oxygen supplementation ABG findings noted 7.3 Will try to wean down oxygen requirement Hyponatremia Elevated LFTs Electrolytes monitor and replace accordingly Monitor LFTs Hypertension Antihypertensives titrated Continue home medications and titrate as needed Hyperlipidemia Continue statin CKD stage II Monitor renal parameters Electrolytes monitor and replace accordingly GI/DVT prophylaxis Advanced directive full code Discharge Plan: Home Plan to discharge in: 48 Hours - Advance Directives Does patient have a Living Will: No Does patient have a Durable POA for Healthcare: No - Code Status/Comfort Care Code Status: Full Code Time Spent Managing Pts Care (In Minutes): 48
[2024-11-25] MEDS ORDERED: ALBUTEROL 2.5 MG/3 ML NEB SOL NEB PRN (19:22)
[2024-11-25] MEDS ORDERED: ONDANSETRON 4 MG/2 ML VIAL IV PRN (19:22)
[2024-11-25] MEDS ORDERED: ACETAMINOPHEN 325 MG TABLET PO PRN (19:22)
[2024-11-25] MEDS: Levofloxacin500mg IV 500 MG/100 ML BAG IV ONE (20:19)
[2024-11-25 23:22] VITALS: BMI 38.5
[2024-11-26] MEDS: METHYLPREDNISOLONE 125 MG INJ IV SCH (00:06)
[2024-11-26] MEDS: IPRATROPIUM BROM 0.5MG/2.5ML NEB SCH (00:31)
[2024-11-26] MEDS: ALBUTEROL 2.5 MG/3 ML NEB SOL NEB SCH (00:31)
[2024-11-26 06:24] LABS: Absolute Lymphocytes (CBC) 0.8 K/uL (0.7-4.9); Absolute Monocytes 0.4 K/uL (0.1-1.3); Absolute Neutrophil 14.2 K/uL (1.8-8.0); Basophils % 0.1 % (0-1.3); Hematocrit 44.7 % (39.6-49.0); Hemoglobin 15.5 g/dL (13.6-17.9); Lymphocytes % 5.1 % (15.3-44.8); MCH 31.2 pg (27.0-35.0); MCHC 34.7 g/dL (32.0-36.0); MCV 89.9 fL (80-100); MPV 8.2 fL (7.6-11.3); Monocytes % 2.7 % (3.3-12.3); Neutrophils % 92.1 % (41.7-73.7); Platelets 270 thou/uL (152-406); RBC Red Blood Cell Count 4.97 M/uL (4.33-5.43); Red Cell Distribution Width 14.6 % (12.1-15.2)
[2024-11-26 06:58] LABS: Albumin 2.3 g/dL (3.4-5.0); Albumin/Globulin Ratio 0.4 (1.1-1.8); Anion Gap 10.4 mEq/L (5.0-15.0); Globulin 5.2 g/dL (2.3-3.5); Potassium 4.4 mEq/L (3.5-5.1); Protein, Total 7.5 g/dL (6.4-8.2)
[2024-11-26] MEDS: SOLIFENACIN SUCCIN 5 MG TAB PO SCH (09:00)
[2024-11-26] MEDS: [UNRECOGNIZED DRUG - OTHER] PO SCH (09:00)
[2024-11-26] MEDS: ENOXAPARIN 40 MG/0.4 ML SQ SCH (10:52)
[2024-11-26] MEDS: DULERA 100/5 (MOMETASONE/FORMOTEROL) INHALER IH SCH (10:53)
[2024-11-26] MEDS: AZITHROMYCIN 250 MG TAB PO SCH (10:53)
[2024-11-26] MEDS: CEFTRIAXONE 1,000 MG in NA CHLORIDE 0.9% 50 ML IVPB SCH (10:54)
[2024-11-26] MEDS: allopurinoL 100 MG TAB PO SCH (10:54)
[2024-11-26] MEDS: ATORVASTATIN 40 MG TAB PO SCH (10:54)
[2024-11-26] MEDS: TROSPIUM CHLORIDE 20 MG TABLET PO SCH (11:19)
[2024-11-26 12:26] LABS: Atypical Lymphocytes 1 %; Differential Total Cells Count 100; Lymphocytes 1 % (15-42); Monocytes 2 % (0-10); Myelocytes 1 % (0-0); Platelet Estimate ADEQ; Platelets Clumped NOTED; Segmented Neutrophils 95 % (40-80)
[2024-11-26 12:27] LABS: Blood Morphology Comment NOT SEEN (NOT SEEN); Smudge Cells PRESENT
[2024-11-26 15:06] LABS: Specific Gravity 1.019 (1.005-1.030); Urine Bacteria None Seen /HPF (<20); Urine Bilirubin NEGATIVE (Negative); Urine Blood 2+ (Negative); Urine Clarity Extremely Turbid (Clear); Urine Color Yellow (Yellow); Urine Crystals Unidentified Few /HPF (None Seen); Urine Culture Reflex Order NOT NEEDED; Urine Glucose NEGATIVE (Negative); Urine Ketones NEGATIVE (Negative); Urine Micro Reflex YN NO BILL MICROSCOPIC; Urine Nitrite NEGATIVE (Negative); Urine Protein TRACE (Negative); Urine Urobilinogen Normal (Normal); Urine WBC <5 /HPF (<5); Urine Yeast (Budding) Trace /HPF (None Seen)
[2024-11-26 15:07] LABS: Sqamous Epithelial None Seen /HPF (None Seen)
[2024-11-26 15:08] LABS: Urine Mucus 4+ /HPF (None Seen)
--- NOTE | 2024-11-26 18:22 | P.PN ---
Subjective Date of Service: 11/26/24 Chief Complaint: SOB Patient reports significant improvement in his shortness of breath. No recorded fever. He is requiring 4 L of oxygen by nasal cannula. Physical Examination - Vital Signs Temperature: 97.5 F Blood Pressure: 132/76 Pulse: 114 Respirations: 20 Pulse Ox (%): 94 - Studies Microbiology Data (last 24 hrs): 11/25/24 16:40 Nasopharnyx Respiratory Syncytial Virus Ag Scrn - Final 11/25/24 16:40 Nasopharnyx Influenza Type A Antigen Screen - Final 11/25/24 16:40 Nasopharnyx Influenza Type B Antigen Screen - Final Assessment And Plan - Plan Physical examination General: Alert and oriented x3, NAD, HEENT: Conjunctiva not pale, anicteric sclera Neck: Supple, no elevated JVD Heart: Heart sounds 1 and 2 normal, regular rhythm, normal rate, no pedal edema Lungs: Mild scattered rhonchi, adequate breath sounds bilaterally, no crackles. Abdomen: Soft, nondistended, nontender, normal bowel sounds. Extremities: No tenderness, no deformity Skin: Normal skin turgor, no rash, no nodules or ulcers. Neuro: No focal motor deficit. Normal speech. Psychiatry: Normal mood, no agitation. Diagnosis COPD exacerbation Acute respiratory failure with hypoxia Acute on chronic kidney disease stage III. Hyponatremia Hypertension Plan COPD exacerbation Acute respiratory failure with hypoxia Influenza with influenza A. Sepsis Clear chest x-ray Patient meets criteria for sepsis with leukocytosis and tachycardia. Sepsis likely related to influenza URI Continue bronchodilators, IV steroid Tamsulosin Pulmonary consult Wean off oxygen as tolerated Monitor CBC to follow leukocytosis Hyponatremia Elevated LFTs Mild hyponatremia Electrolytes monitor and replace accordingly Monitor LFT Hyperlipidemia Continue statin Acute on CKD stage III Renal function improved Continue to monitor DVT prophylaxis: Heparin SQ Advanced directive: full code
--- NOTE | 2024-11-26 19:46 | P.CNS ---
Date of Consult: 11/26/24 Reason for Consult: COPD exacerbation Chief Complaint: SOB History of Present Illness: Patient is 74 years of age sick for about a week has been complaining of progressive dyspnea history of COPD taking any bronchodilators at home was supposed to be on Breo has slight cough no fever or chills with hypoxemia COPD exacerbation Allergies No Known Allergies Allergy (Unverified 11/25/24 23:03) Home Medications: Allopurinol 100 mg PO DAILY 09/17/22 Turmeric Root/Adela Root Ext [Turmeric Curcumin-Adela Gummy] 2 each PO DAILY 09/17/22 Albuterol Sulfate [Proair Digihaler] 90 mcg IH PRN PRN 11/26/24 Atorvastatin Calcium [Lipitor] 40 mg PO DAILY 11/26/24 Fluticasone/Umeclidin/Vilanter [Trelegy Ellipta 100-62.5-25] 1 each IH DAILY 30 Days #1 aero 11/26/24 Fluticasone/Vilanterol [Breo Ellipta 100-25 Mcg INH] 1 each IH DAILY 11/26/24 Solifenacin [Vesicare*] 5 mg PO DAILY 11/26/24 - Past Medical/Surgical History Diabetic: No -: COPD -: BPH -: RA -: allergies -: HDL -: Sleep apnea noncompliant with CPAP -: ANKLE AND KNEE LEFT LEG -: Lumbar Puncture - Family History Mother Medical History: Heart disease, Other (see notes) Notes: COPD, ARTHRITIS, OSTEOPEROSIS - Social History Smoking Status: Never smoker Alcohol use: Yes CD- Drugs: No Caffeine use: No Place of Residence: Home Review of Systems 10-point ROS is otherwise unremarkable General: Weakness Respiratory: Cough, Shortness of Breath Physical Examination Temp Pulse Resp BP Pulse Ox 97.5 F 114 H 20 132/76 94 11/26/24 18:32 11/26/24 18:32 11/26/24 18:32 11/26/24 18:32 11/26/24 18:32 General: Alert, Oriented x3 Respiratory: Expiratory wheezes Cardiovascular: No edema, Regular rate/rhythm, Normal S1 S2 Gastrointestinal: Normal bowel sounds, Soft and benign Musculoskeletal: No clubbing, No swelling - Problems (1) COPD exacerbation Current Visit: Yes Status: Acute Plan: Patient is 74 years of age with a history of COPD apparently was not using his Breo at home or any bronchodilators been sick for about a week tested positive for influenza A admitted with elevated white count chest x-ray no evidence of pneumonia hypoxemia or renal insufficiency plan to start him on IV fluids 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 prednisone Augmentin check labs tomorrow discharge home on his bronchodilators low-dose prednisone and Augmentin follow-up with me in 2 weeks chest x-ray is clear Garcia has been faxed to his pharmacy is check room air pulse ox
[2024-11-26] MEDS: predniSONE 20 MG TAB PO SCH (20:54)
[2024-11-26] MEDS: OSELTAMIVIR 75 MG CAP PO ONE (20:54)
[2024-11-26] MEDS: NA CHLORIDE 0.9% 1,000 ML IV SCH (20:54)
[2024-11-27] MEDS: HEPARIN 5000 UNIT/ML 1 ML VIAL SQ SCH (01:15)
[2024-11-27 07:12] LABS: Albumin 2.3 g/dL (3.4-5.0); Albumin/Globulin Ratio 0.5 (1.1-1.8); Bilirubin Total 0.5 mg/dL (0.2-1.0); Globulin 4.8 g/dL (2.3-3.5); Protein, Total 7.1 g/dL (6.4-8.2)
[2024-11-27 07:31] LABS: Absolute Lymphocytes (CBC) 0.7 K/uL (0.7-4.9); Absolute Monocytes 1.4 K/uL (0.1-1.3); Absolute Neutrophil 20.8 K/uL (1.8-8.0); Hematocrit 44.4 % (39.6-49.0); Lymphocytes % 2.9 % (15.3-44.8); MCH 30.4 pg (27.0-35.0); MCHC 33.8 g/dL (32.0-36.0); MCV 89.9 fL (80-100); MPV 8.4 fL (7.6-11.3); Monocytes % 6.1 % (3.3-12.3); Nucleated Red Blood Cells % 0.1 % (0-0); Platelets 290 thou/uL (152-406); RBC Red Blood Cell Count 4.94 M/uL (4.33-5.43); Red Cell Distribution Width 15.1 % (12.1-15.2)
[2024-11-27] MEDS: OSELTAMIVIR 30 MG CAP PO SCH (08:43)
[2024-11-27] MEDS: AMOX/K CLAV 875 MG TAB PO SCH (08:43)
[2024-11-27 12:29] LABS: Platelet Estimate ADEQ; White Blood Cell Scan OK (OK)
[2024-11-27 12:30] LABS: Blood Morphology Comment NOT SEEN (NOT SEEN)
--- NOTE | 2024-11-27 15:31 | P.PN ---
Subjective Date of Service: 11/27/24 Chief Complaint: SOB Patient reports progressive improvement in his shortness of breath. He has had no fever. He remains on 4 to 5 L of oxygen by nasal cannula. Physical Examination - Vital Signs Temperature: 97.5 F Blood Pressure: 142/86 Pulse: 98 Respirations: 16 Pulse Ox (%): 90 Assessment And Plan - Plan Physical examination General: Alert and oriented x3, NAD, Neck: Supple, no elevated JVD Heart: Heart sounds 1 and 2 normal, regular rhythm, normal rate, no pedal edema Lungs: Mild scattered rhonchi, adequate breath sounds bilaterally, no crackles. Abdomen: Soft, nondistended, nontender, normal bowel sounds. Extremities: No tenderness, no deformity Skin: Normal skin turgor, no rash, no nodules or ulcers. Neuro: No focal motor deficit. Normal speech. Psychiatry: Normal mood, no agitation. Diagnosis COPD exacerbation Acute respiratory failure with hypoxia Acute on chronic kidney disease stage III. Hyponatremia Hypertension Plan COPD exacerbation Acute respiratory failure with hypoxia Influenza with influenza A. Sepsis Clear chest x-ray Sepsis likely related to influenza URI Continue bronchodilators, IV steroid Continue tamsulosin Augmentin added to cover possible bacterial infective bronchitis Pulmonary input appreciated Wean off oxygen as tolerated Worsening leukocytosis likely steroid-induced. Hyponatremia Hyponatremia is improving Electrolytes monitor and replace accordingly LFTs normalized. Hyperlipidemia Continue statin Acute on CKD stage III Patient has azotemia Serum creatinine is improving. Patient started on IV NS by pulmonology Continue to monitor DVT prophylaxis: Heparin SQ Advanced directive: full code
[2024-11-28 08:16] LABS: Absolute Lymphocytes (CBC) 0.7 K/uL (0.7-4.9); Absolute Monocytes 1.7 K/uL (0.1-1.3); Absolute Neutrophil 14.4 K/uL (1.8-8.0); Basophils % 0.1 % (0-1.3); Hematocrit 42.4 % (39.6-49.0); Hemoglobin 14.4 g/dL (13.6-17.9); MCH 30.5 pg (27.0-35.0); MCV 89.8 fL (80-100); MPV 7.7 fL (7.6-11.3); Monocytes % 9.9 % (3.3-12.3); Nucleated Red Blood Cells % 0.1 % (0-0); Platelets 280 thou/uL (152-406); RBC Red Blood Cell Count 4.72 M/uL (4.33-5.43)
--- NOTE | 2024-11-28 15:55 | P.PN ---
Subjective Date of Service: 11/28/24 Chief Complaint: SOB Patient reports progressive improvement in his shortness of breath. He has had no fever. Oxygen weaned down to 2 L by nasal cannula. Patient desaturated to room air at rest. Physical Examination - Vital Signs Temperature: 97.4 F Blood Pressure: 127/61 Pulse: 94 Respirations: 16 Pulse Ox (%): 90 Assessment And Plan - Plan Physical examination General: Alert and oriented x3, NAD, Neck: Supple, no elevated JVD Heart: Heart sounds 1 and 2 normal, regular rhythm, normal rate, no pedal edema Lungs: Mild scattered rhonchi, adequate breath sounds bilaterally, no crackles. Abdomen: Soft, nondistended, nontender, normal bowel sounds. Extremities: No tenderness, no deformity Skin: Normal skin turgor, no rash, no nodules or ulcers. Neuro: No focal motor deficit. Normal speech. Psychiatry: Normal mood, no agitation. Diagnosis COPD exacerbation Acute respiratory failure with hypoxia Acute on chronic kidney disease stage III. Hyponatremia Hypertension Plan COPD exacerbation Acute respiratory failure with hypoxia Influenza with influenza A. Sepsis Clear chest x-ray Sepsis likely related to influenza URI. Clinically improved. Continue bronchodilators, IV steroid Continue Tamiflu. Augmentin added to cover possible bacterial infective bronchitis. Leukocytosis improved from yesterday. Pulmonary Dr. Chacon is following. Patient may require home oxygen given significant COPD. Hyponatremia Hyponatremia resolved Monitor BMP Hyperlipidemia Continue statin Acute on CKD stage III Azotemia is improving. INES resolved with IV hydration. Discontinue IV fluid. Continue to monitor BMP. DVT prophylaxis: Heparin SQ Advanced directive: full code
[2024-11-29 08:25] LABS: Absolute Lymphocytes (CBC) 0.8 K/uL (0.7-4.9); Absolute Monocytes 1.4 K/uL (0.1-1.3); Absolute Neutrophil 10.3 K/uL (1.8-8.0); Basophils % 0.1 % (0-1.3); Hemoglobin 13.5 g/dL (13.6-17.9); Lymphocytes % 6.3 % (15.3-44.8); MCH 30.1 pg (27.0-35.0); MCHC 32.9 g/dL (32.0-36.0); MCV 91.2 fL (80-100); MPV 7.2 fL (7.6-11.3); Monocytes % 11.5 % (3.3-12.3); Neutrophils % 82.1 % (41.7-73.7); Nucleated Red Blood Cells % 0.1 % (0-0); Platelets 271 thou/uL (152-406); Red Cell Distribution Width 15.3 % (12.1-15.2)
[2024-11-29 08:51] LABS: Anion Gap 8.4 mEq/L (5.0-15.0); Potassium 4.4 mEq/L (3.5-5.1)
[2024-11-29 09:06] VITALS: TEMP 97.5
[2024-11-29 12:48] VITALS: BP 133/82
--- NOTE | 2024-11-29 12:56 | P.DS ---
Admission Date: 11/25/24 Discharge Date: 11/29/24 Disposition: ROUTINE DISCHARGE Discharge Condition: FAIR Reason for Admission: SOB Brief History of Present Illness: 73-year-old male with past medical history of hypertension, hyperlipidemia, asthma/COPD and gout , BPH s/p TURP, rheumatoid arthritis Brought to ER with shortness of breath and cough which has been going on for the last 3 days and has been progressively getting worse and was brought to ER. Denies any fever or chills. Cough is productive with mucoid expectoration. No nausea vomiting or diarrhea. Patient was assessed in the ER and is admitted for further management of acute COPD exacerbation Hospital Course: Diagnosis COPD exacerbation Acute respiratory failure with hypoxia Acute on chronic kidney disease stage III. Hyponatremia Hypertension Patient admitted to the medical floor and the following medical problems addressed Plan COPD exacerbation Acute respiratory failure with hypoxia Influenza with influenza A. Sepsis Clear chest x-ray Patient had sepsis likely related to influenza URI. Clinically improved. Patient treated with bronchodilators, IV steroid and Tamiflu. Augmentin added to cover possible bacterial infective bronchitis. Patient had leukocytosis which improved. Pulmonary Dr. Chacon evaluated patient and assisted with manage. Patient was initially requiring oxygen but was weaned off oxygen to room air. He is now tolerating room air with ambulation. Hyponatremia Hyponatremia resolved Monitor BMP Hyperlipidemia Continued statin Acute on CKD stage III Azotemia significantly improved. INES resolved with IV hydration. Vital Signs/Physical Exam: Temp Pulse Resp BP Pulse Ox 97.5 F 73 20 133/82 99 11/29/24 12:00 11/29/24 12:00 11/29/24 12:00 11/29/24 12:00 11/29/24 12:00 General: Alert, In no apparent distress, Oriented x3 HEENT: Mucous membr. moist/pink Neck: Supple, JVD not distended Respiratory: Clear to auscultation bilaterally, Normal air movement Cardiovascular: No edema, Regular rate/rhythm, Normal S1 S2, No murmurs Capillary refill: <2 Seconds Gastrointestinal: Normal bowel sounds, Soft and benign, Non-distended Musculoskeletal: No swelling Integumentary: No rashes, No cyanosis Neurological: Normal strength at 5/5 x4 extr Laboratory Data at Discharge: WBC 12.50 thou/uL (4.3-10.9) H 11/29/24 08:12 Hgb 13.5 g/dL (13.6-17.9) L 11/29/24 08:12 Hct 41.0 % (39.6-49.0) 11/29/24 08:12 Plt Count 271 thou/uL (152-406) 11/29/24 08:12 PT 14.8 SECONDS (9.4-12.5) H 11/25/24 16:40 INR 1.41 11/25/24 16:40 Sodium 140 mEq/L (136-145) 11/29/24 08:12 Potassium 4.4 mEq/L (3.5-5.1) 11/29/24 08:12 BUN 37 mg/dL (7-18) H 11/29/24 08:12 Creatinine 0.71 mg/dL (0.70-1.30) 11/29/24 08:12 Glucose 128 mg/dL (74-106) H 11/29/24 08:12 Magnesium 2.0 mg/dL (1.6-2.4) 11/25/24 16:40 Total Bilirubin 0.5 mg/dL (0.2-1.0) 11/27/24 06:28 AST 14 U/L (15-37) L 11/27/24 06:28 ALT 17 U/L (16-61) 11/27/24 06:28 Alkaline Phosphatase 78 U/L (45-117) 11/27/24 06:28 Home Medications: Allopurinol 100 mg PO DAILY 09/17/22 Turmeric Root/Adela Root Ext [Turmeric Curcumin-Adela Gummy] 2 each PO DAILY 09/17/22 Albuterol Sulfate [Proair Digihaler] 90 mcg IH PRN PRN 11/26/24 Atorvastatin Calcium [Lipitor] 40 mg PO DAILY 11/26/24 Fluticasone/Umeclidin/Vilanter [Trelegy Ellipta 100-62.5-25] 1 each IH DAILY 30 Days #1 aero 11/26/24 Fluticasone/Vilanterol [Breo Ellipta 100-25 Mcg Inhalr] 1 each IH DAILY 11/26/24 Solifenacin [Vesicare*] 5 mg PO DAILY 11/26/24 Amox/Clavulanate [Augmentin 875-125 Tab*] 875 mg PO BIDWM #10 tab 11/29/24 Oseltamivir [Tamiflu*] 75 mg PO BID #4 cap 11/29/24 predniSONE [Prednisone*] 20 mg PO BID #8 tab 11/29/24 New Medications: Amox/Clavulanate [Augmentin 875-125 Tab*] 875 mg PO BIDWM #10 tab predniSONE [Prednisone*] 20 mg PO BID #8 tab Oseltamivir [Tamiflu*] 75 mg PO BID #4 cap Fluticasone/Umeclidin/Vilanter [Trelegy Ellipta 100-62.5-25] 1 each IH DAILY 30 Days #1 aero Diet: AHA Activity: Ad tila Followup: Dionicio Chacon MD [ACTIVE - CAN ADMIT] - 1-2 Weeks Taurus Rojo MD [Primary Care Provider] - 1-2 Weeks Time spent managing pt's care (in minutes): 38
[2024-11-29 14:08] VITALS: O2SAT 96
[2024-11-29] MEDS ORDERED: OSELTAMIVIR 75 MG CAP PO SCH (21:00)
--- NOTE | 2024-12-01 12:50 | EKG ---
Test Date: 2024-11-25 Test Time: 16:59:41 Countersinker Balance Screw Hole: LORRIE MEASUREMENT RESULTS: Intervals: Rate: 90 ID: [id number] QRSD: 84 QT: 348 QTc: 425 [place]: P: 60 ID: [id number] QRS: 73 T: 44 INTERPRETIVE STATEMENTS: Normal sinus rhythm Low voltage QRS Borderline ECG Compared to ECG 11/24/2024 17:31:32 Low QRS voltage now present Ventricular-paced complex(es) or rhythm no longer present Atrial-sensed ventricular-paced complex(es) or rhythm no longer present Electronically Signed On 12-01-24 12:38:33 DRIVERS' CASH CLERK by Edinson Ling
--- NOTE | 2024-12-01 12:53 | EKG ---
Test Date: 2024-11-24 Test Time: 17:31:32 Power Operator: LASHAUN MEASUREMENT RESULTS: Intervals: Rate: 121 GA: 150 QRSD: 120 QT: 342 QTc: 485 [place]: P: 29 GA: 150 QRS: 104 T: -48 INTERPRETIVE STATEMENTS: Suspect unspecified pacemaker failure Atrial-sensed ventricular-paced rhythm Abnormal ECG Compared to ECG 09/11/2023 01:59:30 Sinus rhythm no longer present Electronically Signed On 12-01-24 12:39:35 SHOE SEWING MACHINE OPERATOR AND TENDER by Edinson Ling
--- NOTE | 2024-12-07 12:48 | EKG ---
Test Date: 2024-11-27 Test Time: 22:18:37 Archaeology Professor: JUAN DANIELG MEASUREMENT RESULTS: Intervals: Rate: 80 AR: 160 QRSD: 88 QT: 394 QTc: 454 [place]: P: 53 AR: 160 QRS: 13 T: 31 INTERPRETIVE STATEMENTS: Normal sinus rhythm Cannot rule out Anterior infarct, age undetermined Abnormal ECG Compared to ECG 11/25/2024 16:59:41 Myocardial infarct finding now present Electronically Signed On 12-07-24 12:27:18 UROLOGIST MD by Edinson Ling
== END 2024-11-29 14:22 | disposition home or self-care (01) | DRG 871 ==
LOC: ER 15:50 → ERHOLD 19:22 → 2ND 21:46
PROVIDERS: ADMIT Family Medicine; ATTEND Internal Medicine
PROC: 4A033R1 Measurement of Arterial Saturation, Peripheral, Percutaneous Approach (ICD-10-PCS; principal; 2024-11-25)
DX: A41.89 Other specified sepsis (principal); J96.01 Acute respiratory failure with hypoxia; J44.1 Chronic obstructive pulmonary disease with (acute) exacerbation; E87.1 Hypo-osmolality and hyponatremia; M06.9 Rheumatoid arthritis, unspecified; E78.5 Hyperlipidemia, unspecified; M10.9 Gout, unspecified; J10.1 Influenza due to other identified influenza virus with other respiratory manifestations; I12.9 Hypertensive chronic kidney disease with stage 1 through stage 4 chronic kidney disease, or unspecified chronic kidney disease; N18.30 Chronic kidney disease, stage 3 unspecified; N40.0 Benign prostatic hyperplasia without lower urinary tract symptoms; R79.89 Other specified abnormal findings of blood chemistry; Z88.8 Allergy status to other drugs, medicaments and biological substances; Z79.899 Other long term (current) drug therapy; Z87.891 Personal history of nicotine dependence; Z11.52 Encounter for screening for COVID-19
CPT/HCPCS: 36415; 36600; 71045; 80048; 80053; 80076; 81001; 82805; 83605; 83735; 83880; 84484; 85025; 85610; 87040; 87070; 87205; 87804; 87807; 87811; 93005; 94640; 94760; 96374; 96375; 99284; J0696; J1644; J1650; J2919; J3535; J7030; J7040; J7512; J7613; J7644